=== PATIENT | male | born 1940 | race Caucasian/White ===

== ENCOUNTER 2021-03-26 03:26 | Emergency (ER) | payer OTHER, MEDICARE ==
[~2021-03-26] VITALS: Ht 170.2 cm; Wt 79.5 kg
[~2021-03-26 03:26] MED LIST: AMLO-708 PO; ASPI-611 PO; ATOR20TA PO; BETA1TAB19 PO; CARV-50 PO; CHOL100025 PO; CITA20TA26 PO; CLON-529 PO; FINA5TAB11 PO; FLO0.4C PO; GEMF600T89 PO; LOSA100T57 PO; MELO7.5T12 PO; MULT-66 PO; PANT40TA54 PO; ZOLP5TAB8 PO
[2021-03-26 03:39] VITALS: BP 206/100
[2021-03-26 04:20] LABS: BASOPHILS % (AUTO) 0.7 % (0-1); EOSINOPHILS # (AUTO) 0.4 X10'3 (0-0.9); EOSINOPHILS % (AUTO) 6.6 % (0-6); HEMATOCRIT 37.8 % (42.0-52.0); HEMOGLOBIN 12.9 g/dl (14.0-17.9); LYMPHOCYTES # (AUTO) 1.1 X10'3 (1.1-4.8); LYMPHOCYTES % (AUTO) 18.3 % (21-51); MEAN CORPUSCULAR HEMOGLOBIN 33.1 PG (27.0-31.0); MEAN CORPUSCULAR HGB CONC 34.1 g/dL (33.0-36.5); MEAN CORPUSCULAR VOLUME 97.1 FL (78-98); MEAN PLATELET VOLUME 9.8 FL (7.4-10.4); MONOCYTES # (AUTO) 0.7 X10'3 (0-0.9); MONOCYTES % (AUTO) 12.1 % (2-12); NEUTROPHILS # (AUTO) 3.8 X10'3 (1.8-7.7); NEUTROPHILS % (AUTO) 62.3 % (42-75); PLATELET COUNT 152 X10'3 (140-440); RED CELL DISTRIBUTION WIDTH 13.4 % (11.5-14.5); WHITE BLOOD COUNT 6.2 X10'3 (4.5-11.0)
[2021-03-26 04:37] LABS: ALBUMIN 3.1 G/DL (3.4-5.0); ANION GAP 7 (8-16); BLOOD UREA NITROGEN 16 MG/DL (7-18); BUN/CREATININE RATIO 10.8 (5.4-32.0); CHLORIDE 106 MMOL/L (99-107); CREATININE 1.48 MG/DL (0.60-1.10); GLUCOSE 164 MG/DL (70-104); POTASSIUM 3.5 MMOL/L (3.5-5.1); SODIUM 138 MMOL/L (135-145); TOTAL CARBON DIOXIDE 24.7 MMOL/L (24-32); eGFR 46 ML/MIN
== END 2021-03-26 06:03 | disposition home or self-care (01) ==
LOC: ER 03:27
DX: I10 Essential (primary) hypertension (principal); R51.9 Headache, unspecified; I25.10 Atherosclerotic heart disease of native coronary artery without angina pectoris; G89.29 Other chronic pain; F32.9 Major depressive disorder, single episode, unspecified; F12.90 Cannabis use, unspecified, uncomplicated; Z86.73 Personal history of transient ischemic attack (TIA), and cerebral infarction without residual deficits; Z98.890 Other specified postprocedural states; Z72.89 Other problems related to lifestyle; Z79.82 Long term (current) use of aspirin; Z79.899 Other long term (current) drug therapy
CPT/HCPCS: 36415; 70450; 80048; 84484; 85025; 93005; 99285

== ENCOUNTER 2021-04-09 08:55 | Outpatient (CLI) | payer MEDICARE, OTHER | END 2021-04-09 23:59 | disposition home or self-care (01) | LOC: VAS 08:55 | PROVIDERS: ATTEND Family Medicine | DX: N28.1 Cyst of kidney, acquired (principal); I10 Essential (primary) hypertension | CPT/HCPCS: 93975 ==

== ENCOUNTER 2021-08-05 07:01 | Day surgery (SDC) | payer MEDICARE, OTHER ==
[~2021-08-05] VITALS: Ht 175.3 cm; Wt 84.8 kg
[2021-08-05] VITALS (8 sets, daily range): BP systolic 117–139; BP diastolic 55–66
[2021-08-05] MEDS ORDERED: normal saline 1000ml 1,000 ML IV PRN (07:30)
[2021-08-05] MEDS ORDERED: CHLO25TA10 PO (07:55)
[2021-08-05] MEDS ORDERED: DULO60CA65 PO (07:55)
[2021-08-05] MEDS ORDERED: DICL100G30 TOP (07:59)
[2021-08-05] MEDS ORDERED: OXYB5TAB16 PO (07:59)
[2021-08-05 08:20] LABS: BASOPHILS % (AUTO) 0.6 % (0-1); EOSINOPHILS # (AUTO) 0.4 X10'3 (0-0.9); EOSINOPHILS % (AUTO) 7.2 % (0-6); HEMATOCRIT 36.8 % (42.0-52.0); HEMOGLOBIN 12.5 g/dl (14.0-17.9); LYMPHOCYTES # (AUTO) 0.9 X10'3 (1.1-4.8); LYMPHOCYTES % (AUTO) 15.6 % (21-51); MEAN CORPUSCULAR HEMOGLOBIN 32.7 PG (27.0-31.0); MEAN PLATELET VOLUME 9.4 FL (7.4-10.4); MONOCYTES # (AUTO) 0.7 X10'3 (0-0.9); MONOCYTES % (AUTO) 10.8 % (2-12); NEUTROPHILS % (AUTO) 65.8 % (42-75); PLATELET COUNT 167 X10'3 (140-440); RED BLOOD COUNT 3.84 X10'6 (4.70-6.10); RED CELL DISTRIBUTION WIDTH 13.7 % (11.5-14.5)
[2021-08-05 08:29] LABS: ALBUMIN 3.2 G/DL (3.4-5.0); BLOOD UREA NITROGEN 25 MG/DL (7-18); BUN/CREATININE RATIO 15.6 (5.4-32.0); CALCIUM 8.9 MG/DL (8.5-10.1); CHLORIDE 106 MMOL/L (99-107); GLUCOSE 157 MG/DL (70-104); POTASSIUM 3.1 MMOL/L (3.5-5.1); SODIUM 144 MMOL/L (135-145); eGFR 42 ML/MIN
[2021-08-05 08:37] LABS: ANION GAP 14 (8-16); TOTAL CARBON DIOXIDE 24.2 MMOL/L (24-32)
[2021-08-05] MEDS ORDERED: iohexol 300mg/ml 100ml inj. ONE (08:43)
[2021-08-05] MEDS ORDERED: midazolam 1 mg/ML 2ml injection ONE ×2 (08:43→09:17)
[2021-08-05] MEDS ORDERED: LIDOCAINE 1% w/preservative (10 MG/ML) inj. 10mL VIAL ONE (08:43)
[2021-08-05] MEDS ORDERED: heparin 1,000 UNITS/NS 500ml 500 ML ONE (08:43)
[2021-08-05] MEDS ORDERED: fentaNYL/PF 50MCG/1 ML 2ML syringe ONE ×2 (08:43→09:17)
[2021-08-05] MEDS ORDERED: proCHLORperazine 10 MG/2 ml inj ONE (09:19)
[2021-08-05] MEDS ORDERED: normal saline 1000ml 1,000 ML IV SCH (10:25)
--- NOTE | 2021-08-05 12:10 | NUR ---
Pt laying in bed. Eating breakfast. Denies pain. Denies sob. VS stable as charted. Will continue to monitor.
== END 2021-08-05 13:30 | disposition home or self-care (01) ==
LOC: SSTAY O 07:01
PROVIDERS: ATTEND Radiology Vascular & Interventional Radiology
DX: I70.212 Atherosclerosis of native arteries of extremities with intermittent claudication, left leg (principal); I10 Essential (primary) hypertension; J44.9 Chronic obstructive pulmonary disease, unspecified; Z79.899 Other long term (current) drug therapy; Z86.73 Personal history of transient ischemic attack (TIA), and cerebral infarction without residual deficits
CPT/HCPCS: 36415; 37224; 75625; 75710; 80048; 85025; 85610; 99152; 99153; C1760; C1769; C1894; C2623; J0780; J1644; J2250; J3010; Q9967; A6213

== ENCOUNTER 2022-02-21 12:32 | Inpatient (IN) | payer MEDICARE, OTHER ==
[~2022-02-21] VITALS: Ht 175.3 cm; Wt 84.8 kg
[~2022-02-21 12:32] MED LIST changes: -ASPI-611 PO; -BETA1TAB19 PO; +CHLO25TA10 PO; -CITA20TA26 PO; +DICL100G30 TOP; +DULO60CA65 PO; -MELO7.5T12 PO; +OXYB5TAB16 PO
[2022-02-21 13:09] LABS: BASOPHILS # (AUTO) 0.1 X10'3 (0-0.2); BASOPHILS % (AUTO) 0.6 % (0-1); EOSINOPHILS # (AUTO) 0.4 X10'3 (0-0.9); EOSINOPHILS % (AUTO) 4.9 % (0-6); HEMATOCRIT 42.1 % (42.0-52.0); HEMOGLOBIN 14.3 g/dl (14.0-17.9); LYMPHOCYTES # (AUTO) 1.2 X10'3 (1.1-4.8); LYMPHOCYTES % (AUTO) 13.2 % (21-51); MEAN CORPUSCULAR HEMOGLOBIN 34.2 PG (27.0-31.0); MEAN CORPUSCULAR VOLUME 100.8 FL (78-98); MEAN PLATELET VOLUME 9.6 FL (7.4-10.4); MONOCYTES # (AUTO) 0.6 X10'3 (0-0.9); MONOCYTES % (AUTO) 6.7 % (2-12); NEUTROPHILS # (AUTO) 6.8 X10'3 (1.8-7.7); NEUTROPHILS % (AUTO) 74.6 % (42-75); PLATELET COUNT 180 X10'3 (140-440); RED BLOOD COUNT 4.17 X10'6 (4.70-6.10); RED CELL DISTRIBUTION WIDTH 14.6 % (11.5-14.5); WHITE BLOOD COUNT 9.1 X10'3 (4.5-11.0)
[2022-02-21 13:17] LABS: ALANINE AMINOTRANSFERASE 32 U/L (12-78); ALBUMIN 3.3 G/DL (3.4-5.0); ALBUMIN/GLOBULIN RATIO 0.9 (1.1-1.5); ALKALINE PHOSPHATASE 94 IU/L (46-116); ANION GAP 9 (8-16); ASPARTATE AMINO TRANSFERASE 17 U/L (10-37); BILIRUBIN,TOTAL 0.5 MG/DL (0.1-1.0); BLOOD UREA NITROGEN 27 MG/DL (7-18); BUN/CREATININE RATIO 17.8 (5.4-32.0); CALCIUM 9.4 MG/DL (8.5-10.1); CHLORIDE 104 MMOL/L (99-107); CREATININE 1.52 MG/DL (0.60-1.10); GLUCOSE 197 MG/DL (70-104); POTASSIUM 3.8 MMOL/L (3.5-5.1); SODIUM 140 MMOL/L (135-145); TOTAL CARBON DIOXIDE 27.1 MMOL/L (24-32); TOTAL PROTEIN 6.8 G/DL (6.4-8.2); eGFR 44 ML/MIN
--- NOTE | 2022-02-21 15:08 | NUR ---
Placed pt on Zoll monitor with pacing pads d/t bradycardia
[2022-02-21] MEDS ORDERED: morphine 2 MG/ML inj. syringe IV PRN ×2 (17:15)
[2022-02-21] MEDS ORDERED: mag hydrox/Alum hydrox/simeth 30ml oral suspension PO PRN (17:15)
[2022-02-21] MEDS ORDERED: ondansetron/PF 4mg/2ml inj IV PRN (17:15)
[2022-02-21] MEDS ORDERED: acetaminophen 325mg tablet PO PRN ×2 (17:15)
[2022-02-21] MEDS ORDERED: magnesium hydroxide 30ml (MOM) UD suspension PO PRN (17:15)
[2022-02-21] MEDS: normal saline 1000ml 1,000 ML IV SCH (17:36)
[2022-02-21] MEDS: docusate sod 100mg capsule PO SCH (20:52)
--- NOTE | 2022-02-21 23:43 | NUR ---
PT PLACED ONTO A HOSPITAL BED
[2022-02-22] MEDS: HYDROcodone/acetaminophen 5mg/325mg tablet PO PRN ×4 (00:19→21:53)
[2022-02-22] MEDS: normal saline 1000ml 1,000 ML IV SCH (03:36)
[2022-02-22 04:01] LABS: BASOPHILS % (AUTO) 0.5 % (0-1); EOSINOPHILS # (AUTO) 0.5 X10'3 (0-0.9); EOSINOPHILS % (AUTO) 6.3 % (0-6); HEMOGLOBIN 12.7 g/dl (14.0-17.9); LYMPHOCYTES # (AUTO) 1.3 X10'3 (1.1-4.8); LYMPHOCYTES % (AUTO) 17.5 % (21-51); MEAN CORPUSCULAR HEMOGLOBIN 33.8 PG (27.0-31.0); MEAN CORPUSCULAR HGB CONC 33.4 g/dL (33.0-36.5); MEAN CORPUSCULAR VOLUME 101.2 FL (78-98); MEAN PLATELET VOLUME 9.4 FL (7.4-10.4); MONOCYTES # (AUTO) 0.5 X10'3 (0-0.9); MONOCYTES % (AUTO) 7.3 % (2-12); NEUTROPHILS # (AUTO) 5.1 X10'3 (1.8-7.7); NEUTROPHILS % (AUTO) 68.4 % (42-75); PLATELET COUNT 152 X10'3 (140-440); RED BLOOD COUNT 3.76 X10'6 (4.70-6.10); RED CELL DISTRIBUTION WIDTH 14.4 % (11.5-14.5); WHITE BLOOD COUNT 7.5 X10'3 (4.5-11.0)
[2022-02-22 04:10] LABS: ALBUMIN 2.7 G/DL (3.4-5.0); ANION GAP 8 (8-16); BLOOD UREA NITROGEN 26 MG/DL (7-18); BUN/CREATININE RATIO 18.4 (5.4-32.0); CALCIUM 8.9 MG/DL (8.5-10.1); CHLORIDE 108 MMOL/L (99-107); CREATININE 1.41 MG/DL (0.60-1.10); GLUCOSE 153 MG/DL (70-104); POTASSIUM 3.7 MMOL/L (3.5-5.1); SODIUM 141 MMOL/L (135-145); TOTAL CARBON DIOXIDE 25.1 MMOL/L (24-32); eGFR 48 ML/MIN
[2022-02-22] MEDS ORDERED: CARV6.252 PO (07:21)
[2022-02-22] MEDS ORDERED: DILT-36 PO (07:26)
[2022-02-22] MEDS ORDERED: BETA1TAB19 PO (07:26)
[2022-02-22] MEDS ORDERED: VARE1TAB24 PO (07:29)
[2022-02-22] MEDS ORDERED: VARE0.5T6 PO (07:29)
[2022-02-22] MEDS ORDERED: zolpidem 5mg tablet PO PRN (08:40)
[2022-02-22] MEDS: docusate sod 100mg capsule PO SCH ×2 (09:18→20:23)
[2022-02-22] MEDS ORDERED: chlorthalidone 25mg tablet PO SCH ×2 (09:37→09:51)
[2022-02-22 10:10] VITALS: BP 169/73
[2022-02-22] MEDS: amLODIPine 5mg tablet PO SCH (10:28)
[2022-02-22] MEDS: cholecalciferol (vitamin D3) 1,000 unit (25mcg) tablet PO SCH ×2 (10:28→20:24)
[2022-02-22] MEDS: losartan 50mg tablet PO SCH (10:28)
[2022-02-22] MEDS: pantoprazole 40mg Tablet.DR PO SCH (10:29)
[2022-02-22] MEDS: multivitamins, therapeutics tablet PO SCH (10:29)
[2022-02-22] MEDS: atorvastatin 20mg tablet PO SCH (10:29)
[2022-02-22] MEDS: finasteride 5mg tablet PO SCH (13:59)
[2022-02-22] MEDS ORDERED: ASPI-611 PO (14:00)
[2022-02-22 15:05] VITALS: BP 107/68
[2022-02-22] MEDS ORDERED: DULO30CA52 PO (16:48)
--- NOTE | 2022-02-22 16:52 | NUR ---
PAGER ID: [phone] MESSAGE: [id number]. Bola. Added duloxetine to med rec per pt. Pt needs tonight. Jacqueline Miner [phone]
--- NOTE | 2022-02-22 16:52 | NUR ---
Added to the med rec: duloxetine 30mg cap PO BID per pt
[2022-02-22 18:00] VITALS: BP 129/72
--- NOTE | 2022-02-22 18:10 | NUR ---
Problems reprioritized. Patient report given to Valentin HANEY, questions answered & plan of care reviewed with .
--- NOTE | 2022-02-22 18:30 | NUR ---
Patient in room PCU 3018. I have received report from esther and had the opportunity to ask questions and assume patient care.
--- NOTE | 2022-02-22 18:33 | NUR ---
[place]rientee documentation: I have reviewed and agree with all interventions, assessments performed and documented by PHARMACY SERVICES REPRESENTATIVE, II.
[2022-02-22] MEDS: duloxetine 30mg CAPSULE.DR PO SCH (20:23)
[2022-02-22] MEDS: gemfibrozil 600mg tablet PO SCH (20:24)
[2022-02-22] MEDS ORDERED: tamsulosin 0.4mg capsule PO SCH (21:00)
[2022-02-22] MEDS ORDERED: varenicline tartrate 1mg tablet PO SCH (21:00)
[2022-02-22] MEDS ORDERED: cloNIDine 0.1 mg tablet PO SCH (21:00)
[2022-02-23 02:00] VITALS: BP 99/60
[2022-02-23 06:21] LABS: BASOPHILS # (AUTO) 0.1 X10'3 (0-0.2); BASOPHILS % (AUTO) 0.8 % (0-1); EOSINOPHILS # (AUTO) 0.4 X10'3 (0-0.9); EOSINOPHILS % (AUTO) 6.5 % (0-6); HEMATOCRIT 38.9 % (42.0-52.0); HEMOGLOBIN 13.2 g/dl (14.0-17.9); LYMPHOCYTES # (AUTO) 1.1 X10'3 (1.1-4.8); LYMPHOCYTES % (AUTO) 17.5 % (21-51); MEAN CORPUSCULAR HEMOGLOBIN 34.4 PG (27.0-31.0); MEAN CORPUSCULAR HGB CONC 33.9 g/dL (33.0-36.5); MEAN CORPUSCULAR VOLUME 101.4 FL (78-98); MEAN PLATELET VOLUME 9.3 FL (7.4-10.4); MONOCYTES # (AUTO) 0.6 X10'3 (0-0.9); MONOCYTES % (AUTO) 9.1 % (2-12); NEUTROPHILS # (AUTO) 4.2 X10'3 (1.8-7.7); NEUTROPHILS % (AUTO) 66.1 % (42-75); PLATELET COUNT 148 X10'3 (140-440); RED BLOOD COUNT 3.84 X10'6 (4.70-6.10); RED CELL DISTRIBUTION WIDTH 14.5 % (11.5-14.5); WHITE BLOOD COUNT 6.3 X10'3 (4.5-11.0)
--- NOTE | 2022-02-23 06:22 | NUR ---
Problems reprioritized. Patient report given, questions answered & plan of care reviewed with
[2022-02-23 06:30] VITALS: BP 108/59
[2022-02-23 06:42] LABS: ALBUMIN 2.8 G/DL (3.4-5.0); ANION GAP 6 (8-16); BLOOD UREA NITROGEN 23 MG/DL (7-18); BUN/CREATININE RATIO 14.7 (5.4-32.0); CALCIUM 9.1 MG/DL (8.5-10.1); CHLORIDE 105 MMOL/L (99-107); CREATININE 1.56 MG/DL (0.60-1.10); GLUCOSE 155 MG/DL (70-104); SODIUM 141 MMOL/L (135-145); TOTAL CARBON DIOXIDE 29.6 MMOL/L (24-32); eGFR 43 ML/MIN
[2022-02-23 06:45] LABS: POTASSIUM 3.9 MMOL/L (3.5-5.1)
--- NOTE | 2022-02-23 06:50 | NUR ---
Patient in room PCU 3018. I have received report from Valentin HANEY and had the opportunity to ask questions and assume patient care.
[2022-02-23] MEDS ORDERED: varenicline tartrate 1mg tablet PO SCH ×2 (08:00→11:17)
[2022-02-23] MEDS ORDERED: beta-carotene(A) w/C & E + minerals tab PO SCH (08:00)
[2022-02-23] MEDS ORDERED: carvedilol 6.25mg tablet PO ONE ×2 (08:13→10:00)
[2022-02-23] MEDS: pantoprazole 40mg Tablet.DR PO SCH (08:18)
[2022-02-23] MEDS: multivitamins, therapeutics tablet PO SCH (08:18)
[2022-02-23] MEDS: losartan 50mg tablet PO SCH (08:19)
[2022-02-23] MEDS: cholecalciferol (vitamin D3) 1,000 unit (25mcg) tablet PO SCH (08:19)
[2022-02-23] MEDS: amLODIPine 5mg tablet PO SCH (08:19)
[2022-02-23] MEDS: atorvastatin 20mg tablet PO SCH (08:19)
[2022-02-23] MEDS: docusate sod 100mg capsule PO SCH (08:19)
[2022-02-23] MEDS: duloxetine 30mg CAPSULE.DR PO SCH (08:19)
[2022-02-23] MEDS: finasteride 5mg tablet PO SCH (08:20)
[2022-02-23] MEDS: gemfibrozil 600mg tablet PO SCH (08:29)
[2022-02-23] MEDS: HYDROcodone/acetaminophen 5mg/325mg tablet PO PRN (08:31)
[2022-02-23 10:41] VITALS: BP_SYST 103; BP_SYST 128; BP_SYST 160; BP_DIAS 66; BP_DIAS 83; BP_DIAS 88
[2022-02-23 10:48] VITALS: BP 128/83
--- NOTE | 2022-02-23 12:11 | NUR ---
O2 Sat at rest on room air: 95% If O2 Sat did not drop below 89% on room air,ambulate patient on room air. O2 Sat while ambulating on room air: 88% Recovery O2 Sat while ambulating on 2 LPM: 92% No further documentation is necessary. If patient does not drop below 89% while ambulating, he/she does not qualify for home O2.
--- NOTE | 2022-02-23 14:45 | NUR ---
Patient discharged. Discharge instructions provided. All belongings and instructions sent home with patient. O2 delivered and explained. Patient accompanied to vehicle by nursing staff.
--- NOTE | 2022-02-23 15:43 | NUR ---
Orientee documentation: I have reviewed and agree with all interventions, assessments performed and documented by LYNDON Kumar II.
--- NOTE | 2022-03-02 09:06 | NUR ---
Case Management DC follow up: Spoke with Patient's via telephone. S/P: Patient Reports: Denies: Acute/continuous CP, emergent SOB, resp distress, dyspnea, vomiting, weakness, vertigo .Verbalizes Patient is using his oxygen. Verbalizes he has had moments of nausea, and one incident of feeling faint. Denies: [place], blurry vision, s/s of stroke/BE-FAST, dysuria, hematuria, retention, abdominal pain/distension, hematochezia, melena, unexplained bruising, bleeding, fever, chills. Patient's distraught at the time of this interview.Verbalizes they have been alone since Patient was discharged from hospital.Verbalizes they have not heard from a Physical Therapists, not given event monitor, no one has checked on them.Verbalizes Patient's Blood pressure has been elevated; however, that was prior to taking his morning medications.Verbalized understanding of s/s that warrant a 9-11/ER visit for further evaluation. Verbalizes understanding of new Rx:, why prescribed;continues/resumes current Rx as ordered.Verbalized they can not get follow up appointments with , nor with .Patient's agreed with my offer of assistance with follow up appointments.Apprised 's nurse Annie,of Patient's need for follow up, event monitor, and blood pressure. Follow up appointment with had already been scheduled for 03/10/22. however, if a time became available prior to 03/10/22 they would call Patient.Telephoned Patient and spoke with his .Patient's pleased that they had just received call from 's office and have appointment for the next day.Patient's apprised of appointment with 03/10/22, and assured if office has an opening prior to appointment time they would receive a call .Verbalizes the nursing care and stay at hospital was excellent. Needs met, questions concerns addressed at DC.No further questions/concerns regarding recent hospital stay, and/or DC status at this time.
== END 2022-02-23 14:45 | disposition home or self-care (01) | DRG 310 ==
LOC: ER 12:32 → ED HOLD 17:17 → PCU 3S 02-22 09:59
PROVIDERS: ADMIT Internal Medicine; ATTEND Internal Medicine
DX: I49.5 Sick sinus syndrome (principal); I44.1 Atrioventricular block, second degree; I12.9 Hypertensive chronic kidney disease with stage 1 through stage 4 chronic kidney disease, or unspecified chronic kidney disease; I25.10 Atherosclerotic heart disease of native coronary artery without angina pectoris; E11.22 Type 2 diabetes mellitus with diabetic chronic kidney disease; E11.51 Type 2 diabetes mellitus with diabetic peripheral angiopathy without gangrene; I44.0 Atrioventricular block, first degree; E78.5 Hyperlipidemia, unspecified; F17.210 Nicotine dependence, cigarettes, uncomplicated; G47.33 Obstructive sleep apnea (adult) (pediatric); F32.A Depression, unspecified; R09.02 Hypoxemia; G89.29 Other chronic pain; M54.9 Dorsalgia, unspecified; J44.9 Chronic obstructive pulmonary disease, unspecified; N18.30 Chronic kidney disease, stage 3 unspecified; N40.0 Benign prostatic hyperplasia without lower urinary tract symptoms; Z82.49 Family history of ischemic heart disease and other diseases of the circulatory system; Z82.5 Family history of asthma and other chronic lower respiratory diseases; Z86.73 Personal history of transient ischemic attack (TIA), and cerebral infarction without residual deficits; Z98.1 Arthrodesis status; Z79.899 Other long term (current) drug therapy; Z79.82 Long term (current) use of aspirin
CPT/HCPCS: 36415; 71045; 80048; 80053; 83880; 84484; 85025; 87081; 93005; 97161; 97530; 99285; G0378; J7030

== ENCOUNTER 2022-04-02 12:07 | Day surgery (SDC) | payer MEDICARE, OTHER ==
[~2022-04-02] VITALS: Ht 175.3 cm; Wt 89.3 kg
[2022-04-02] VITALS (8 sets, daily range): BP systolic 115–143; BP diastolic 71–88
[~2022-04-02 12:07] MED LIST changes: +ASPI-611 PO; +BETA1TAB19 PO; -CARV-50 PO; +CARV6.252 PO; -DICL100G30 TOP; +DULO30CA52 PO; -DULO60CA65 PO; -OXYB5TAB16 PO; +VARE0.5T6 PO; +VARE1TAB24 PO
[2022-04-02] MEDS: normal saline 1000ml 1,000 ML IV SCH ×2 (12:30→16:43)
[2022-04-02] MEDS ORDERED: ceFAZolin inj. 2,000 MG in dextrose 5%-water 100 ML IV ONE (12:32)
[2022-04-02] MEDS ORDERED: EZET10TA48 PO (12:41)
[2022-04-02 13:00] LABS: BASOPHILS % (AUTO) 0.7 % (0-1); EOSINOPHILS # (AUTO) 0.4 X10'3 (0-0.9); EOSINOPHILS % (AUTO) 6.1 % (0-6); HEMATOCRIT 39.9 % (42.0-52.0); HEMOGLOBIN 13.4 g/dl (14.0-17.9); LYMPHOCYTES # (AUTO) 1.2 X10'3 (1.1-4.8); LYMPHOCYTES % (AUTO) 18.3 % (21-51); MEAN CORPUSCULAR HEMOGLOBIN 32.8 PG (27.0-31.0); MEAN CORPUSCULAR HGB CONC 33.5 g/dL (33.0-36.5); MEAN PLATELET VOLUME 9.2 FL (7.4-10.4); MONOCYTES # (AUTO) 0.5 X10'3 (0-0.9); NEUTROPHILS # (AUTO) 4.3 X10'3 (1.8-7.7); NEUTROPHILS % (AUTO) 66.9 % (42-75); PLATELET COUNT 157 X10'3 (140-440); RED BLOOD COUNT 4.07 X10'6 (4.70-6.10); RED CELL DISTRIBUTION WIDTH 13.4 % (11.5-14.5); WHITE BLOOD COUNT 6.4 X10'3 (4.5-11.0)
[2022-04-02 13:09] LABS: ALBUMIN 3.4 G/DL (3.4-5.0); ANION GAP 8 (8-16); BLOOD UREA NITROGEN 26 MG/DL (7-18); BUN/CREATININE RATIO 15.2 (5.4-32.0); CALCIUM 9.1 MG/DL (8.5-10.1); CHLORIDE 98 MMOL/L (99-107); CREATININE 1.71 MG/DL (0.60-1.10); GLUCOSE 369 MG/DL (70-104); POTASSIUM 3.5 MMOL/L (3.5-5.1); SODIUM 137 MMOL/L (135-145); TOTAL CARBON DIOXIDE 31.2 MMOL/L (24-32); eGFR 39 ML/MIN
[2022-04-02] MEDS ORDERED: ceFAZolin 1000mg inj ONE (13:34)
[2022-04-02] MEDS ORDERED: FENTANYL CITRATE/PF 50 MCG/1 ML VIAL ONE (13:34)
[2022-04-02] MEDS ORDERED: midazolam 1 mg/ML 2ml injection ONE ×3 (13:34→15:21)
[2022-04-02] MEDS ORDERED: LIDOCAINE 1%/EPI 1:100,000 inj. 10 ML multi-dose vial ONE (13:34)
[2022-04-02] MEDS ORDERED: HYDROcodone/acetaminophen 5mg/325mg tablet PO PRN (16:10)
[2022-04-02] MEDS ORDERED: HYDROcodone/acetaminophen 10/325mg tab PO PRN (16:10)
[2022-04-02] MEDS ORDERED: normal saline 1,000 ML IV SCH (16:15)
[2022-04-02] MEDS ORDERED: normal saline 1000ml 400 ML IV SCH (16:15)
[2022-04-02] MEDS ORDERED: vancomycin 1000 MG in NS 250ml X 1 ER IV ONE (17:30)
== END 2022-04-02 20:05 | disposition home or self-care (01) ==
LOC: SSTAY O 12:07
PROVIDERS: ATTEND Internal Medicine Cardiovascular Disease
DX: I49.5 Sick sinus syndrome (principal); I44.30 Unspecified atrioventricular block; I25.10 Atherosclerotic heart disease of native coronary artery without angina pectoris; J44.9 Chronic obstructive pulmonary disease, unspecified; I10 Essential (primary) hypertension; I71.40 Abdominal aortic aneurysm, without rupture, unspecified; I65.23 Occlusion and stenosis of bilateral carotid arteries; E11.51 Type 2 diabetes mellitus with diabetic peripheral angiopathy without gangrene; E78.5 Hyperlipidemia, unspecified; G47.33 Obstructive sleep apnea (adult) (pediatric); K21.9 Gastro-esophageal reflux disease without esophagitis; F32.A Depression, unspecified; N40.0 Benign prostatic hyperplasia without lower urinary tract symptoms; G89.29 Other chronic pain; M54.9 Dorsalgia, unspecified; M54.2 Cervicalgia; F10.10 Alcohol abuse, uncomplicated; Z87.891 Personal history of nicotine dependence; Z82.49 Family history of ischemic heart disease and other diseases of the circulatory system; Z83.6 Family history of other diseases of the respiratory system; Z98.1 Arthrodesis status; Z98.890 Other specified postprocedural states; Z79.82 Long term (current) use of aspirin; Z79.899 Other long term (current) drug therapy
CPT/HCPCS: 33208; 36415; 71046; 80048; 85025; 85610; 93005; 99152; 99153; C1785; C1894; C1898; J0690; J2250; J3010; J3370; J3490; J7030; J7050; A6258

== ENCOUNTER 2022-07-06 14:10 | Outpatient (CLI) | payer MEDICARE, OTHER ==
[~2022-07-06 14:10] MED LIST changes: +EZET10TA48 PO; -VARE0.5T6 PO; -VARE1TAB24 PO
== END 2022-07-06 23:59 | disposition home or self-care (01) ==
LOC: CARD DIAG 14:10
PROVIDERS: ATTEND Internal Medicine Cardiovascular Disease
DX: I08.8 Other rheumatic multiple valve diseases (principal); R55 Syncope and collapse
CPT/HCPCS: 93306

== ENCOUNTER 2022-09-07 14:36 | Emergency (ER) | payer OTHER, MEDICARE ==
[~2022-09-07] VITALS: Ht 175.3 cm; Wt 79.1 kg
[~2022-09-07 14:36] MED LIST changes: -AMLO-708 PO; -ATOR20TA PO; +BUDE9TAB PO; -CHLO25TA10 PO; -CLON-529 PO; +DEXL60CA3 PO; -DULO30CA52 PO; +EMPA25TA PO; -FLO0.4C PO; +GABA-534 PO; -GEMF600T89 PO; +HYDR-3972 PO; +LEVO750T68 PO; -LOSA100T57 PO; +LOSA100T58 PO; -PANT40TA54 PO; -ZOLP5TAB8 PO; +tamsulosin capsule PO
[2022-09-07 14:49] VITALS: BP 113/80
[2022-09-07 15:25] LABS: BASOPHILS # (AUTO) 0.1 X10'3 (0-0.2); BASOPHILS % (AUTO) 0.6 % (0-1); EOSINOPHILS # (AUTO) 0.2 X10'3 (0-0.9); EOSINOPHILS % (AUTO) 1.9 % (0-6); HEMATOCRIT 40.6 % (42.0-52.0); HEMOGLOBIN 13.2 g/dl (14.0-17.9); LYMPHOCYTES # (AUTO) 0.9 X10'3 (1.1-4.8); LYMPHOCYTES % (AUTO) 10.1 % (21-51); MEAN CORPUSCULAR HEMOGLOBIN 32.9 PG (27.0-31.0); MEAN CORPUSCULAR HGB CONC 32.6 g/dL (33.0-36.5); MEAN CORPUSCULAR VOLUME 100.9 FL (78-98); MEAN PLATELET VOLUME 9.4 FL (7.4-10.4); MONOCYTES # (AUTO) 0.5 X10'3 (0-0.9); MONOCYTES % (AUTO) 5.8 % (2-12); NEUTROPHILS # (AUTO) 7.2 X10'3 (1.8-7.7); NEUTROPHILS % (AUTO) 81.6 % (42-75); PLATELET COUNT 156 X10'3 (140-440); RED BLOOD COUNT 4.02 X10'6 (4.70-6.10); RED CELL DISTRIBUTION WIDTH 16.6 % (11.5-14.5); WHITE BLOOD COUNT 8.8 X10'3 (4.5-11.0)
[2022-09-07 15:34] LABS: CLARITY,URINE CLEAR (Clear); COLOR,URINE YELLOW (Yellow); GLUCOSE, URINE NEGATIVE (Neg); KETONES,URINE TRACE mg/dl (Neg); LEUKOCYTE ESTERASE ,URINE NEGATIVE (Neg); NITRITES, URINE NEGATIVE (Neg); OCCULT BLOOD,URINE NEGATIVE (Neg); PROTEIN,URINE >=300 mg/dl (Neg); UROBILINOGEN,URINE 0.2 E.U/dL (0.2-1.0)
[2022-09-07 15:37] LABS: UA COLLECTION TYPE CLN CATCH MIDSTREAM
[2022-09-07 15:48] LABS: MUCUS STRANDS FEW /LPF (Neg); SQUAMOUS EPITHELIAL CELL,UR FEW /LPF (FEW)
[2022-09-07 15:48] LABS: ALANINE AMINOTRANSFERASE 70 U/L (12-78); ALBUMIN 3.4 G/DL (3.4-5.0); ANION GAP 9 (8-16); ASPARTATE AMINO TRANSFERASE 26 U/L (10-37); BILIRUBIN,TOTAL 0.3 MG/DL (0.1-1.0); BLOOD UREA NITROGEN 28 MG/DL (7-18); BUN/CREATININE RATIO 18.1 (10.0-20.0); CALCIUM 9.2 MG/DL (8.5-10.1); CHLORIDE 106 MMOL/L (99-107); CREATININE 1.55 MG/DL (0.60-1.10); GLUCOSE 160 MG/DL (70-104); SODIUM 140 MMOL/L (135-145); TOTAL CARBON DIOXIDE 24.8 MMOL/L (24-32); TOTAL PROTEIN 6.9 G/DL (6.4-8.2); eGFR 43 ML/MIN
[2022-09-07 15:49] LABS: FINE GRANULAR CAST 0-3 /LPF (NEGATIVE)
[2022-09-07 15:50] LABS: BACTERIA,URINE FEW /HPF (Neg); RBC,URINE 0-2 /HPF (0-2); WBC,URINE 0-4 /HPF (0-4)
[2022-09-07 16:29] LABS: ALKALINE PHOSPHATASE 93 IU/L (46-116)
== END 2022-09-07 17:18 | disposition home or self-care (01) ==
LOC: ER 14:36
DX: N39.498 Other specified urinary incontinence (principal); I51.9 Heart disease, unspecified; I10 Essential (primary) hypertension; E11.9 Type 2 diabetes mellitus without complications; G89.29 Other chronic pain; M54.9 Dorsalgia, unspecified; F32.A Depression, unspecified; F12.10 Cannabis abuse, uncomplicated; Z79.899 Other long term (current) drug therapy; Z79.1 Long term (current) use of non-steroidal anti-inflammatories (NSAID); Z79.2 Long term (current) use of antibiotics
CPT/HCPCS: 36415; 71045; 80053; 81001; 83605; 83735; 84145; 84484; 85025; 87040; 99284

== ENCOUNTER 2022-10-14 13:27 | Emergency (ER) | payer OTHER, MEDICARE ==
[~2022-10-14] VITALS: Ht 175.3 cm; Wt 77.3 kg
[~2022-10-14 13:27] MED LIST changes: -HYDR-3972 PO
[2022-10-14 14:18] LABS: BASOPHILS % (AUTO) 0.5 % (0-1); EOSINOPHILS # (AUTO) 0.2 X10'3 (0-0.9); EOSINOPHILS % (AUTO) 2.2 % (0-6); HEMATOCRIT 41.1 % (42.0-52.0); HEMOGLOBIN 13.8 g/dl (14.0-17.9); LYMPHOCYTES # (AUTO) 0.9 X10'3 (1.1-4.8); LYMPHOCYTES % (AUTO) 12.5 % (21-51); MEAN CORPUSCULAR HGB CONC 33.6 g/dL (33.0-36.5); MEAN CORPUSCULAR VOLUME 98.4 FL (78-98); MEAN PLATELET VOLUME 8.9 FL (7.4-10.4); MONOCYTES # (AUTO) 0.6 X10'3 (0-0.9); NEUTROPHILS # (AUTO) 5.2 X10'3 (1.8-7.7); NEUTROPHILS % (AUTO) 75.8 % (42-75); PLATELET COUNT 167 X10'3 (140-440); RED BLOOD COUNT 4.18 X10'6 (4.70-6.10); RED CELL DISTRIBUTION WIDTH 14.6 % (11.5-14.5); WHITE BLOOD COUNT 6.8 X10'3 (4.5-11.0)
[2022-10-14 14:30] LABS: ALANINE AMINOTRANSFERASE 128 U/L (12-78); ALBUMIN 3.4 G/DL (3.4-5.0); ALKALINE PHOSPHATASE 86 IU/L (46-116); ANION GAP 9 (8-16); ASPARTATE AMINO TRANSFERASE 46 U/L (10-37); BILIRUBIN,TOTAL 0.5 MG/DL (0.1-1.0); BLOOD UREA NITROGEN 19 MG/DL (7-18); BUN/CREATININE RATIO 12.3 (10.0-20.0); CALCIUM 9.3 MG/DL (8.5-10.1); CHLORIDE 103 MMOL/L (99-107); CREATININE 1.54 MG/DL (0.60-1.10); GLUCOSE 149 MG/DL (70-104); POTASSIUM 3.5 MMOL/L (3.5-5.1); SODIUM 140 MMOL/L (135-145); TOTAL CARBON DIOXIDE 28.2 MMOL/L (24-32); TOTAL PROTEIN 6.7 G/DL (6.4-8.2); eGFR 44 ML/MIN
[2022-10-14] MEDS ORDERED: carvedilol 6.25mg tablet PO ONE (15:20)
[2022-10-14] MEDS ORDERED: ondansetron/PF 4mg/2ml inj IV ONE (15:20)
[2022-10-14] MEDS ORDERED: tamsulosin 0.4mg capsule PO ONE (15:20)
[2022-10-14] MEDS ORDERED: enalaprilat dihydrate 2.5mg/2ml vial IV ONE (15:20)
[2022-10-14] MEDS ORDERED: tamsulosin 0.4mg capsule PO SCH (15:20)
[2022-10-14] MEDS ORDERED: normal saline 1000ml 1,000 ML IV ONE (15:20)
[2022-10-14] MEDS ORDERED: carvedilol 6.25mg tablet PO SCH (15:20)
--- NOTE | 2022-10-14 16:16 | NUR ---
Amy doty in [facility] - 10/14/22 at 1617 by JENNIFER ARIAN PERSAUD FROM PHARM. PHARM WILL DEL
--- NOTE | 2022-10-14 16:17 | NUR ---
ERROR LAST NOTE MADE ON INCORRECT PT. NOTE UNDONE.
--- NOTE | 2022-10-14 16:49 | NUR ---
PT EMPTIED URINE. RN EDUCATED TO PROVIDE URINE SAMPLE NEXT TIME.
[2022-10-14] MEDS ORDERED: normal saline 1000ML IV soln IVB ONE (17:00)
[2022-10-14 18:54] LABS: CLARITY,URINE CLEAR (Clear); COLOR,URINE YELLOW (Yellow); GLUCOSE, URINE NEGATIVE (Neg); KETONES,URINE 15 mg/dl (Neg); LEUKOCYTE ESTERASE ,URINE NEGATIVE (Neg); NITRITES, URINE NEGATIVE (Neg); OCCULT BLOOD,URINE TRACE-INTACT (Neg); PROTEIN,URINE >=300 mg/dl (Neg); UROBILINOGEN,URINE 0.2 E.U/dL (0.2-1.0)
[2022-10-14 18:55] LABS: UA COLLECTION TYPE CLN CATCH MIDSTREAM
[2022-10-14 18:59] LABS: MUCUS STRANDS FEW /LPF (Neg); SQUAMOUS EPITHELIAL CELL,UR FEW /LPF (FEW)
[2022-10-14 19:00] LABS: BACTERIA,URINE FEW /HPF (Neg); HYALINE CASTS 0-3 /LPF (NEGATIVE)
[2022-10-14 19:01] LABS: RBC,URINE 0-2 /HPF (0-2); WBC,URINE 0-4 /HPF (0-4)
[2022-10-14 19:30] VITALS: BP_DIAS 98
[2022-10-14] MEDS ORDERED: metoprolol tartrate 50mg tablet PO ONE (19:45)
[2022-10-14 19:48] VITALS: BP_SYST 203
== END 2022-10-14 20:03 | disposition home or self-care (01) ==
LOC: ER 13:28
DX: R11.2 Nausea with vomiting, unspecified (principal)
CPT/HCPCS: 36415; 71045; 80053; 81001; 83880; 84145; 84484; 85025; 93005; 96361; 96374; 96375; 99285; J2405; J3490; J7030; J7040

== ENCOUNTER 2022-12-06 22:44 | Emergency (ER) | payer OTHER, MEDICARE ==
[~2022-12-06] VITALS: Ht 175.3 cm; Wt 75.5 kg
[~2022-12-06 22:44] MED LIST changes: -GABA-534 PO; +GABA-535 PO
[2022-12-06 23:49] VITALS: RESP 20; TEMP 98.6; O2SAT 96
[2022-12-07 00:28] VITALS: BP 99/63; PULSE 71
--- NOTE | 2022-12-07 00:58 | NUR ---
iv dc'd pt being discharged dressing applied
== END 2022-12-07 00:59 | disposition home or self-care (01) ==
LOC: ER 22:45
DX: I95.9 Hypotension, unspecified (principal); F03.90 Unspecified dementia, unspecified severity, without behavioral disturbance, psychotic disturbance, mood disturbance, and anxiety; I11.0 Hypertensive heart disease with heart failure; J44.9 Chronic obstructive pulmonary disease, unspecified; E11.9 Type 2 diabetes mellitus without complications; F32.A Depression, unspecified; F12.10 Cannabis abuse, uncomplicated; Z88.5 Allergy status to narcotic agent; Z79.899 Other long term (current) drug therapy
CPT/HCPCS: 93005; 99283

== ENCOUNTER 2023-01-08 14:56 | Inpatient (IN) | payer OTHER, MEDICARE ==
[~2023-01-08] VITALS: Ht 175.3 cm; Wt 73.4 kg
[2023-01-08 16:23] LABS: BASOPHILS # (AUTO) 0.1 X10'3 (0-0.2); BASOPHILS % (AUTO) 0.7 % (0-1); EOSINOPHILS # (AUTO) 0.3 X10'3 (0-0.9); EOSINOPHILS % (AUTO) 4.7 % (0-6); HEMATOCRIT 37.5 % (42.0-52.0); HEMOGLOBIN 12.6 g/dl (14.0-17.9); LYMPHOCYTES # (AUTO) 0.9 X10'3 (1.1-4.8); LYMPHOCYTES % (AUTO) 13.6 % (21-51); MEAN CORPUSCULAR HEMOGLOBIN 33.5 PG (27.0-31.0); MEAN CORPUSCULAR HGB CONC 33.7 g/dL (33.0-36.5); MEAN CORPUSCULAR VOLUME 99.4 FL (78-98); MEAN PLATELET VOLUME 9.4 FL (7.4-10.4); MONOCYTES # (AUTO) 0.7 X10'3 (0-0.9); MONOCYTES % (AUTO) 10.6 % (2-12); NEUTROPHILS # (AUTO) 4.9 X10'3 (1.8-7.7); NEUTROPHILS % (AUTO) 70.4 % (42-75); PLATELET COUNT 167 X10'3 (140-440); RED BLOOD COUNT 3.77 X10'6 (4.70-6.10); RED CELL DISTRIBUTION WIDTH 14.4 % (11.5-14.5)
[2023-01-08 16:39] LABS: ALANINE AMINOTRANSFERASE 23 U/L (12-78); ALBUMIN/GLOBULIN RATIO 0.9 (1.1-1.5); ALKALINE PHOSPHATASE 79 IU/L (46-116); ANION GAP 8 (8-16); ASPARTATE AMINO TRANSFERASE 22 U/L (10-37); BILIRUBIN,TOTAL 0.4 MG/DL (0.1-1.0); BLOOD UREA NITROGEN 17 MG/DL (7-18); BUN/CREATININE RATIO 11.8 (10.0-20.0); CALCIUM 9.1 MG/DL (8.5-10.1); CHLORIDE 105 MMOL/L (99-107); CREATININE 1.44 MG/DL (0.60-1.10); GLUCOSE 132 MG/DL (70-104); SODIUM 141 MMOL/L (135-145); TOTAL CARBON DIOXIDE 28.4 MMOL/L (24-32); TOTAL PROTEIN 6.4 G/DL (6.4-8.2); eCRCL 40 ML/MIN; eGFR 47 ML/MIN
[2023-01-08 16:43] LABS: POTASSIUM 2.8 MMOL/L (3.5-5.1)
[2023-01-08] MEDS ORDERED: potassium Cl 20 mEq SR tablet PO STA (18:09)
[2023-01-08] MEDS ORDERED: magnesium 2GM in 50ml NS 50 ML IV ONE (18:10)
[2023-01-08 18:33] LABS: PRO BRAIN NATRIURETIC PEPTIDE 4356 PG/ML (0-450)
[2023-01-08] MEDS: potassium CL 10mEq/100ml bag 100 ML IV SCH ×3 (18:34→21:37)
--- NOTE | 2023-01-08 22:56 | NUR ---
PATIENT RESTING IN BED WITH EYES CLOSED, RESPIRATIONS EVEN AND UNLABORED, NO ACUTE DISTRESS NOTED AT THIS TIME. FAMILY AT BEDSIDE. CALL LIGHT WITHIN REACH.
--- NOTE | 2023-01-08 23:29 | NUR ---
PATIENT AMBULATORY TO RESTROOM WITH STEADY GAIT, AT BEDSIDE. PATIENT TOLERATED WELL. DENIES NEEDS, CALL LIGHT WITHIN REACH.
--- NOTE | 2023-01-08 23:54 | NUR ---
LAB CALLED POTASSIUM 2.8. INFORMED ARIAN BRONSON AND DR. GONZALEZ
[2023-01-09] MEDS ORDERED: HYDR-3973 PO (00:11)
--- NOTE | 2023-01-09 00:29 | NUR ---
PATIENT PLACED IN HOSPITAL BED FOR COMFORT.
[2023-01-09] MEDS ORDERED: dextrose 50%-water 50ml dispensing syringe IV PRN ×2 (00:30)
[2023-01-09] MEDS ORDERED: ondansetron/PF 4mg/2ml inj IV PRN (00:30)
[2023-01-09] MEDS ORDERED: acetaminophen 325mg tablet PO PRN (00:30)
[2023-01-09] MEDS ORDERED: diphenoxylate/atropine tablet (Lomotil) PO PRN (00:30)
[2023-01-09] MEDS ORDERED: magnesium hydroxide 30ml (MOM) UD suspension PO PRN (00:30)
[2023-01-09] MEDS ORDERED: magnesium 2GM in 50ml NS 50 ML IV PRN (00:30)
[2023-01-09] MEDS ORDERED: magnesium Cl slow-release 64mg tablet PO PRN (00:30)
[2023-01-09] MEDS ORDERED: mag hydrox/Alum hydrox/simeth 30ml oral suspension PO PRN (00:30)
[2023-01-09] MEDS ORDERED: glucagon, human recombinant 1mg kit SUBCUT PRN (00:30)
[2023-01-09] MEDS ORDERED: nicotine 14mg patch - 24hr TD ONE (00:30)
[2023-01-09] MEDS ORDERED: DEXTROSE 15 GM of carb/4 tabs (each vial/BOTTLE has 4 tablets) PO PRN ×2 (00:30)
[2023-01-09] MEDS ORDERED: MESSAGE TO PHARMACY PO ONE (00:30)
[2023-01-09] MEDS ORDERED: potassium Cl 20 mEq SR tablet PO PRN (00:30)
[2023-01-09] MEDS ORDERED: magnesium 4gm in 100ml NS 100 ML IV PRN (00:30)
[2023-01-09] MEDS ORDERED: ipratropium/albuterol 3ml nebule NEB PRN (00:40)
--- NOTE | 2023-01-09 01:03 | NUR ---
CALLED PHARMACY TO GET POTASSIUM PER ORDER, PHARMACY TO PREPARE MED
[2023-01-09 01:15] VITALS: PULSE 64; RESP 16; O2SAT 97
[2023-01-09 01:19] LABS: HEMOGLOBIN A1C 5.8 % (4.5-6.2)
[2023-01-09] MEDS: potassium Cl 40MEQ/1/2NS 520ml 520 ML IV PRN ×2 (02:01→19:11)
[2023-01-09] MEDS: temazepam 15mg capsule PO PRN ×2 (03:59→23:35)
--- NOTE | 2023-01-09 04:07 | NUR ---
IV POTASSIUM DECREASED RATE PER PATIENT REQUEST FOR COMFORT.
--- NOTE | 2023-01-09 04:48 | NUR ---
PATIENT RESTING IN BED WITH EYES CLOSED, RESPIRATIONS EVEN AND UNLABORED, NO ACUTE DISTRESS NOTED AT THIS TIME. PATIENT CLOSE TO NURSES STATION, CALL LIGHT WITHIN REACH.
--- NOTE | 2023-01-09 07:06 | NUR ---
PT AWAKE AND SITTING ON SIDE OF BED. VS WNL, NSR WITH NO ECTOPY
[2023-01-09] MEDS ORDERED: pantoprazole 40mg Tablet.DR PO SCH (07:30)
[2023-01-09] MEDS: losartan 50mg tablet PO SCH (08:00)
[2023-01-09] MEDS: furosemide 10 MG/1 ML 10ml inj IV SCH (08:00)
[2023-01-09] MEDS: K and/or MAG REPLACEMENT MC SCH ×2 (08:41→19:12)
[2023-01-09] MEDS: multivitamins, therapeutics tablet PO SCH (09:00)
[2023-01-09] MEDS: docusate sod 100mg capsule PO SCH ×2 (09:01→19:13)
[2023-01-09] MEDS: gabapentin 400mg capsule PO SCH ×2 (09:02→20:00)
[2023-01-09] MEDS: cholecalciferol (vitamin D3) 1,000 unit (25mcg) tablet PO SCH (09:03)
[2023-01-09] MEDS: carvedilol 6.25mg tablet PO SCH ×2 (09:03→20:00)
[2023-01-09] MEDS: finasteride 5mg tablet PO SCH (09:04)
[2023-01-09] MEDS: heparin, porcine 5000 units/ml vial SQ SCH ×2 (09:05→21:13)
[2023-01-09] MEDS: beta-carotene(A) w/C & E + minerals tab PO SCH (09:05)
[2023-01-09] MEDS: LIDOcaine 5% patch TP SCH (09:06)
[2023-01-09] MEDS: ezetimibe 10mg tablet PO SCH (09:07)
--- NOTE | 2023-01-09 09:20 | NUR ---
Amy doty in [place] - 01/09/23 at 1113 by [email or web address] per telephone order from resident sinha, place miguel to gravity drain and remove the leg bag
--- NOTE | 2023-01-09 09:35 | NUR ---
paged dr nixon in regards to er pt in bed 7, robin peterson. has an order for protonix 1mg PO. in PO it only comes in 40mg. pharmacy advises there is no smaller dosage in PO. please correct the order for the pt
--- NOTE | 2023-01-09 09:45 | NUR ---
STOOL SAMPLE SENT TO LAB
[2023-01-09] MEDS: methylPREDNISolone sod succ 125mg/2ml vial IV SCH ×3 (09:57→23:35)
--- NOTE | 2023-01-09 10:16 | NUR ---
PT WAS AWAKE A/O X4 EATING BREAKFAST MEAL, 90%. PT CURRENTLY SLEEPING, EVEN RESPS, WILL CONTINUE TO MONITOR.
[2023-01-09 10:55] LABS: C DIFF ANTIGEN NEGATIVE (NEGATIVE); C DIFF SPECIMEN=DIARRHEA? ACCEPTABLE; C DIFFICILE TOXINS A&B NEGATIVE (Neg)
[2023-01-09 10:56] LABS: OCCULT BLOOD STOOL NEGATIVE (Neg)
[2023-01-09] MEDS ORDERED: PERFLUTREN PROTEIN-A MICROSPHR (Optison) 0.22 MG/ML 3ML VIAL IV ONE (11:05)
--- NOTE | 2023-01-09 11:16 | NUR ---
NPO PT TO BE NPO AFTER MIDNIGHT FOR A, AAA ULTRASOUND STUDY FOR TOMORROW (WEDNESDAY 01/10)
[2023-01-09 12:10] LABS: ALBUMIN 3.5 G/DL (3.4-5.0); ANION GAP 4 (8-16); BLOOD UREA NITROGEN 13 MG/DL (7-18); BUN/CREATININE RATIO 8.8 (10.0-20.0); CALCIUM 9.9 MG/DL (8.5-10.1); CHLORIDE 104 MMOL/L (99-107); CREATININE 1.48 MG/DL (0.60-1.10); GLUCOSE 162 MG/DL (70-104); POTASSIUM 3.4 MMOL/L (3.5-5.1); SODIUM 139 MMOL/L (135-145); TOTAL CARBON DIOXIDE 30.6 MMOL/L (24-32); eCRCL 39 ML/MIN; eGFR 46 ML/MIN
[2023-01-09 13:07] VITALS: PULSE 70; RESP 16; O2SAT 96
--- NOTE | 2023-01-09 13:52 | NUR ---
PT AWAKE, A/O X4, SITTING ON SIDE OF BED READING THE PAPER. AT BS.
--- NOTE | 2023-01-09 16:31 | NUR ---
pt sitting on the side of the bed watching football on his phone, no distress noted
[2023-01-09] MEDS: insulin Lispro (HumaLOG) vial - multi-dose SQ SCH (17:58)
[2023-01-09] MEDS: aspirin 81mg, enteric-coated 1 TAB TABLET.DR PO SCH (19:02)
[2023-01-09] MEDS: tamsulosin 0.4mg capsule PO SCH (21:16)
[2023-01-09] MEDS: insulin glargine (Lantus) pen - multi-dose SQ SCH (21:39)
[2023-01-09 22:00] VITALS: BP 167/103; PULSE 81; TEMP 98.8; O2SAT 95
[2023-01-09] MEDS: acetaminophen 325mg tablet PO PRN (23:36)
[2023-01-09 23:43] VITALS: PULSE 86; RESP 18; O2SAT 96
[2023-01-10] VITALS (8 sets, daily range): BP systolic 104–163; BP diastolic 61–96; PULSE 75–89; RESP 13–20; TEMP 97.9–98.7; O2SAT 92–97
--- NOTE | 2023-01-10 06:05 | NUR ---
RECEIVED REPORT FROM ARIAN ZAMBRANO
--- NOTE | 2023-01-10 06:16 | NUR ---
Problems reprioritized. Patient report given, questions answered & plan of care reviewed with MARYLOU DON.
[2023-01-10 06:50] LABS: % IRON SATURATION 34 % (11-46); IRON 83 UG/DL (53-167); TOTAL IRON BINDING CAPACITY 246 UG/DL (259-388)
[2023-01-10 07:06] LABS: ALANINE AMINOTRANSFERASE 21 U/L (12-78); ALBUMIN 3.1 G/DL (3.4-5.0); ALBUMIN/GLOBULIN RATIO 0.9 (1.1-1.5); ALKALINE PHOSPHATASE 75 IU/L (46-116); ANION GAP 10 (8-16); ASPARTATE AMINO TRANSFERASE 17 U/L (10-37); BILIRUBIN,TOTAL 0.2 MG/DL (0.1-1.0); BLOOD UREA NITROGEN 23 MG/DL (7-18); BUN/CREATININE RATIO 12.7 (10.0-20.0); CALCIUM 9.6 MG/DL (8.5-10.1); CHLORIDE 105 MMOL/L (99-107); CREATININE 1.81 MG/DL (0.60-1.10); FERRITIN 120 NG/ML (26-388); GLUCOSE 245 MG/DL (70-104); MAGNESIUM 2.3 MG/DL (1.5-2.4); PHOSPHORUS 2.4 MG/DL (2.3-4.5); POTASSIUM 3.2 MMOL/L (3.5-5.1); PRO BRAIN NATRIURETIC PEPTIDE 14251 PG/ML (0-450); SODIUM 140 MMOL/L (135-145); TOTAL CARBON DIOXIDE 24.8 MMOL/L (24-32); TOTAL PROTEIN 6.7 G/DL (6.4-8.2); eCRCL 32 ML/MIN; eGFR 36 ML/MIN
[2023-01-10] MEDS: K and/or MAG REPLACEMENT MC SCH ×2 (07:51→20:00)
[2023-01-10] MEDS: LIDOcaine 5% patch TP SCH (08:00)
[2023-01-10] MEDS: docusate sod 100mg capsule PO SCH ×2 (08:00→20:00)
[2023-01-10] MEDS: multivitamins, therapeutics tablet PO SCH (08:22)
[2023-01-10] MEDS: beta-carotene(A) w/C & E + minerals tab PO SCH (08:22)
[2023-01-10] MEDS: pantoprazole 40mg Tablet.DR PO SCH (08:23)
[2023-01-10] MEDS: carvedilol 6.25mg tablet PO SCH ×2 (08:23→20:32)
[2023-01-10] MEDS: ezetimibe 10mg tablet PO SCH (08:23)
[2023-01-10] MEDS: gabapentin 400mg capsule PO SCH ×2 (08:24→20:32)
[2023-01-10] MEDS: losartan 50mg tablet PO SCH (08:24)
[2023-01-10] MEDS: finasteride 5mg tablet PO SCH (08:24)
[2023-01-10] MEDS: potassium Cl 20 mEq SR tablet PO PRN ×3 (08:25→20:32)
[2023-01-10] MEDS: cholecalciferol (vitamin D3) 1,000 unit (25mcg) tablet PO SCH (08:25)
[2023-01-10] MEDS: heparin, porcine 5000 units/ml vial SQ SCH ×2 (08:27→20:37)
[2023-01-10 08:29] LABS: BASOPHILS % (AUTO) 0.3 % (0-1); EOSINOPHILS % (AUTO) 0 % (0-6); HEMATOCRIT 39.4 % (42.0-52.0); HEMOGLOBIN 13.3 g/dl (14.0-17.9); LYMPHOCYTES # (AUTO) 0.6 X10'3 (1.1-4.8); MEAN CORPUSCULAR HEMOGLOBIN 33.1 PG (27.0-31.0); MEAN CORPUSCULAR HGB CONC 33.6 g/dL (33.0-36.5); MEAN CORPUSCULAR VOLUME 98.4 FL (78-98); MONOCYTES # (AUTO) 0.3 X10'3 (0-0.9); MONOCYTES % (AUTO) 2.6 % (2-12); NEUTROPHILS # (AUTO) 9.2 X10'3 (1.8-7.7); NEUTROPHILS % (AUTO) 91.1 % (42-75); PLATELET COUNT 171 X10'3 (140-440); RED BLOOD COUNT 4.01 X10'6 (4.70-6.10); RED CELL DISTRIBUTION WIDTH 14.7 % (11.5-14.5); WHITE BLOOD COUNT 10.1 X10'3 (4.5-11.0)
[2023-01-10] MEDS: methylPREDNISolone sod succ 125mg/2ml vial IV SCH ×3 (08:29→23:36)
[2023-01-10] MEDS: furosemide 10 MG/1 ML 10ml inj IV SCH (08:31)
[2023-01-10] MEDS: insulin Lispro (HumaLOG) vial - multi-dose SQ SCH ×2 (08:42→20:34)
[2023-01-10] MEDS: ipratropium/albuterol 3ml nebule NEB PRN (12:42)
--- NOTE | 2023-01-10 13:40 | NUR ---
pt refused his insulin at this time, continue to educate and to kyle
[2023-01-10 14:21] LABS: ALBUMIN 3.2 G/DL (3.4-5.0); BLOOD UREA NITROGEN 27 MG/DL (7-18); BUN/CREATININE RATIO 16.1 (10.0-20.0); CALCIUM 9.7 MG/DL (8.5-10.1); CREATININE 1.68 MG/DL (0.60-1.10); GLUCOSE 261 MG/DL (70-104); TOTAL CARBON DIOXIDE 26.2 MMOL/L (24-32); eCRCL 34 ML/MIN; eGFR 39 ML/MIN
[2023-01-10 14:27] LABS: ANION GAP 11 (8-16); CHLORIDE 103 MMOL/L (99-107); POTASSIUM 3.2 MMOL/L (3.5-5.1); SODIUM 140 MMOL/L (135-145)
[2023-01-10] MEDS: aspirin 81mg, enteric-coated 1 TAB TABLET.DR PO SCH (16:30)
[2023-01-10] MEDS ORDERED: hydrALAZINE 20mg/ml inj. IV PRN (16:50)
--- NOTE | 2023-01-10 18:00 | NUR ---
Patient in room ORTHO 4006. I have received report from ARIAN Lu and had the opportunity to ask questions and assume patient care.
--- NOTE | 2023-01-10 18:15 | NUR ---
gave report to cory mcclellan
[2023-01-10] MEDS ORDERED: DULO60CA65 PO (19:24)
[2023-01-10] MEDS ORDERED: FLO0.4C PO (19:25)
[2023-01-10] MEDS ORDERED: MAGN500C4 PO (19:26)
[2023-01-10] MEDS ORDERED: ACET-1017 PO (19:27)
[2023-01-10] MEDS ORDERED: LIDO15CR11 TOP (19:28)
[2023-01-10] MEDS ORDERED: LIDOCAINE PATCH 4% TOP (19:29)
[2023-01-10] MEDS: tamsulosin 0.4mg capsule PO SCH (20:33)
[2023-01-10] MEDS: insulin glargine (Lantus) pen - multi-dose SQ SCH (20:36)
[2023-01-10] MEDS: temazepam 15mg capsule PO PRN (23:35)
[2023-01-10] MEDS: acetaminophen 325mg tablet PO PRN (23:40)
[2023-01-11 06:00] VITALS: BP 103/65; PULSE 60; RESP 16; TEMP 97.5; O2SAT 95
[2023-01-11 06:12] LABS: BASOPHILS % (AUTO) 0.1 % (0-1); EOSINOPHILS % (AUTO) 0 % (0-6); HEMATOCRIT 38.3 % (42.0-52.0); HEMOGLOBIN 12.6 g/dl (14.0-17.9); LYMPHOCYTES # (AUTO) 0.4 X10'3 (1.1-4.8); LYMPHOCYTES % (AUTO) 3.6 % (21-51); MEAN CORPUSCULAR HEMOGLOBIN 32.9 PG (27.0-31.0); MEAN CORPUSCULAR HGB CONC 32.9 g/dL (33.0-36.5); MEAN CORPUSCULAR VOLUME 99.8 FL (78-98); MEAN PLATELET VOLUME 9.5 FL (7.4-10.4); MONOCYTES # (AUTO) 0.4 X10'3 (0-0.9); MONOCYTES % (AUTO) 3.2 % (2-12); NEUTROPHILS # (AUTO) 11.7 X10'3 (1.8-7.7); NEUTROPHILS % (AUTO) 93.1 % (42-75); PLATELET COUNT 165 X10'3 (140-440); RED BLOOD COUNT 3.84 X10'6 (4.70-6.10); RED CELL DISTRIBUTION WIDTH 14.7 % (11.5-14.5); WHITE BLOOD COUNT 12.5 X10'3 (4.5-11.0)
--- NOTE | 2023-01-11 06:13 | NUR ---
Problems reprioritized. Patient report given, questions answered & plan of care reviewed with ARIAN Crooks.
--- NOTE | 2023-01-11 06:17 | NUR ---
Patient in room ORTHO 4006. I have received report from ARIAN HARDY and had the opportunity to ask questions and assume patient care.
[2023-01-11 06:54] LABS: ALANINE AMINOTRANSFERASE 25 U/L (12-78); ALBUMIN 3.1 G/DL (3.4-5.0); ALBUMIN/GLOBULIN RATIO 0.9 (1.1-1.5); ALKALINE PHOSPHATASE 73 IU/L (46-116); ANION GAP 10 (8-16); ASPARTATE AMINO TRANSFERASE 15 U/L (10-37); BILIRUBIN,TOTAL 0.2 MG/DL (0.1-1.0); BLOOD UREA NITROGEN 30 MG/DL (7-18); BUN/CREATININE RATIO 16.7 (10.0-20.0); CALCIUM 9.3 MG/DL (8.5-10.1); CHLORIDE 105 MMOL/L (99-107); GLUCOSE 242 MG/DL (70-104); MAGNESIUM 2.2 MG/DL (1.5-2.4); PHOSPHORUS 3.2 MG/DL (2.3-4.5); POTASSIUM 3.5 MMOL/L (3.5-5.1); PRO BRAIN NATRIURETIC PEPTIDE 7488 PG/ML (0-450); SODIUM 142 MMOL/L (135-145); TOTAL CARBON DIOXIDE 26.6 MMOL/L (24-32); TOTAL PROTEIN 6.6 G/DL (6.4-8.2); eCRCL 32 ML/MIN; eGFR 36 ML/MIN
[2023-01-11] MEDS: methylPREDNISolone sod succ 125mg/2ml vial IV SCH (07:27)
[2023-01-11] MEDS: gabapentin 400mg capsule PO SCH (07:28)
[2023-01-11] MEDS: multivitamins, therapeutics tablet PO SCH (07:28)
[2023-01-11] MEDS: docusate sod 100mg capsule PO SCH (07:28)
[2023-01-11] MEDS: ezetimibe 10mg tablet PO SCH (07:28)
[2023-01-11] MEDS: beta-carotene(A) w/C & E + minerals tab PO SCH (07:28)
[2023-01-11] MEDS: pantoprazole 40mg Tablet.DR PO SCH (07:28)
[2023-01-11] MEDS: heparin, porcine 5000 units/ml vial SQ SCH (07:28)
[2023-01-11] MEDS: cholecalciferol (vitamin D3) 1,000 unit (25mcg) tablet PO SCH (07:29)
[2023-01-11] MEDS: carvedilol 6.25mg tablet PO SCH (07:29)
[2023-01-11] MEDS: losartan 50mg tablet PO SCH (07:29)
[2023-01-11] MEDS: finasteride 5mg tablet PO SCH (07:30)
[2023-01-11] MEDS: LIDOcaine 5% patch TP SCH (07:30)
[2023-01-11] MEDS: furosemide 40mg tablet PO SCH ×2 (07:30→10:44)
[2023-01-11] MEDS: K and/or MAG REPLACEMENT MC SCH (08:00)
[2023-01-11 10:00] VITALS: BP 166/92; PULSE 58; RESP 18; TEMP 98; O2SAT 97
--- NOTE | 2023-01-11 10:41 | NUR ---
pt spoke with doctor and decided to take the furosemide. Administering now.
[2023-01-11 11:11] VITALS: PULSE 77; RESP 18; O2SAT 96
[2023-01-11] MEDS: ipratropium/albuterol 3ml nebule NEB PRN (11:11)
[2023-01-11 11:20] VITALS: PULSE 80; RESP 20
[2023-01-11] MEDS ORDERED: POTA-366 PO (12:14)
[2023-01-11] MEDS ORDERED: FURO40TA4 PO (12:14)
--- NOTE | 2023-01-11 14:26 | NUR ---
pt refused insulin after his breakfast with BS of 212
--- NOTE | 2023-01-11 15:00 | NUR ---
pt given discharge paperwork and was able to ask questions about discharge. Pt in no distress and wheelchaired down to lobby with all of his belongings. Pt left in private vehicle with spouse.
== END 2023-01-11 14:55 | disposition home health service (06) | DRG 640 ==
LOC: ER 14:57 → ED HOLD 01-09 00:33 → EDBEDREQ 01-09 20:01 → ORTHO 4S 01-09 20:38
PROVIDERS: ADMIT Internal Medicine; ATTEND Family Medicine
DX: E87.6 Hypokalemia (principal); I50.33 Acute on chronic diastolic (congestive) heart failure; N17.0 Acute kidney failure with tubular necrosis; I13.0 Hypertensive heart and chronic kidney disease with heart failure and stage 1 through stage 4 chronic kidney disease, or unspecified chronic kidney disease; E11.22 Type 2 diabetes mellitus with diabetic chronic kidney disease; M54.9 Dorsalgia, unspecified; G89.29 Other chronic pain; D53.9 Nutritional anemia, unspecified; G47.30 Sleep apnea, unspecified; F32.A Depression, unspecified; E78.5 Hyperlipidemia, unspecified; K52.9 Noninfective gastroenteritis and colitis, unspecified; F17.200 Nicotine dependence, unspecified, uncomplicated; N18.30 Chronic kidney disease, stage 3 unspecified; F03.90 Unspecified dementia, unspecified severity, without behavioral disturbance, psychotic disturbance, mood disturbance, and anxiety; J44.9 Chronic obstructive pulmonary disease, unspecified; I25.10 Atherosclerotic heart disease of native coronary artery without angina pectoris; Z88.5 Allergy status to narcotic agent; Z79.82 Long term (current) use of aspirin; Z79.899 Other long term (current) drug therapy; Z86.73 Personal history of transient ischemic attack (TIA), and cerebral infarction without residual deficits; Z95.0 Presence of cardiac pacemaker; Z82.5 Family history of asthma and other chronic lower respiratory diseases
CPT/HCPCS: 36415; 71045; 80048; 80053; 82272; 82607; 82728; 82948; 83036; 83540; 83550; 83735; 83880; 84100; 84132; 84484; 85025; 87045; 87046; 87081; 87324; 87449; 89055; 93306; 93978; 94640; 94760; 99285; A4615; G0378; J1644; J1815; J1940; J2930; J3475; J3480; J7030

== ENCOUNTER 2023-05-17 06:26 | Day surgery (SDC) | payer MEDICARE ==
[2023-05-16 10:17] LABS: BASOPHILS # (AUTO) 0.1 X10'3 (0-0.2); BASOPHILS % (AUTO) 0.6 % (0-1); EOSINOPHILS # (AUTO) 0.2 X10'3 (0-0.9); EOSINOPHILS % (AUTO) 2.5 % (0-6); HEMATOCRIT 38.2 % (42.0-52.0); HEMOGLOBIN 12.8 g/dl (14.0-17.9); LYMPHOCYTES # (AUTO) 0.9 X10'3 (1.1-4.8); LYMPHOCYTES % (AUTO) 10.8 % (21-51); MEAN CORPUSCULAR HEMOGLOBIN 33.8 PG (27.0-31.0); MEAN CORPUSCULAR HGB CONC 33.6 g/dL (33.0-36.5); MEAN CORPUSCULAR VOLUME 100.7 FL (78-98); MEAN PLATELET VOLUME 9.7 FL (7.4-10.4); MONOCYTES # (AUTO) 0.7 X10'3 (0-0.9); NEUTROPHILS # (AUTO) 6.4 X10'3 (1.8-7.7); NEUTROPHILS % (AUTO) 78.1 % (42-75); PLATELET COUNT 142 X10'3 (140-440); RED BLOOD COUNT 3.79 X10'6 (4.70-6.10); RED CELL DISTRIBUTION WIDTH 14.4 % (11.5-14.5); WHITE BLOOD COUNT 8.2 X10'3 (4.5-11.0)
[2023-05-16 10:28] LABS: APTT 26 SECONDS (22-32); PROTHROMBIN TIME 10.4 SECONDS (9.0-12.0)
[2023-05-16 11:34] LABS: ALBUMIN 3.2 G/DL (3.4-5.0); ANION GAP 7 (8-16); BLOOD UREA NITROGEN 26 MG/DL (7-18); CALCIUM 9.1 MG/DL (8.5-10.1); CHLORIDE 108 MMOL/L (99-107); CREATININE 1.73 MG/DL (0.60-1.10); GLUCOSE 147 MG/DL (70-104); POTASSIUM 4.1 MMOL/L (3.5-5.1); SODIUM 144 MMOL/L (135-145); TOTAL CARBON DIOXIDE 28.9 MMOL/L (24-32); eGFR 38 ML/MIN
[2023-05-17] VITALS (11 sets, daily range): BP systolic 135–179; BP diastolic 68–93; PULSE 60–77; RESP 14–17; TEMP 98.1; O2SAT 94–99
[~2023-05-17] VITALS: Ht 175.3 cm; Wt 76.5 kg
[~2023-05-17 06:26] MED LIST changes: -BUDE9TAB PO; +DULO60CA65 PO; +EMPA10TA PO; -EMPA25TA PO; +FLO0.4C PO; +FURO40TA4 PO; +HYDR-3973 PO; -LEVO750T68 PO; +LIDOCAINE PATCH 4% TOP; -LOSA100T58 PO; +MAGN500C4 PO; +PRED5TAB PO; -tamsulosin capsule PO
[2023-05-17] MEDS ORDERED: GABA-535 PO (06:51)
[2023-05-17] MEDS ORDERED: POTA-366 PO (06:51)
[2023-05-17] MEDS ORDERED: FURO40TA4 PO (06:51)
[2023-05-17] MEDS ORDERED: ROSU40TA22 PO (06:51)
[2023-05-17] MEDS ORDERED: verapamil 2.5 mg/ml inj IV ONE (07:16)
[2023-05-17] MEDS ORDERED: LIDOcaine 1% (10mg/ml) 2ml vial ONE (07:16)
[2023-05-17] MEDS ORDERED: iohexol 350MG/ML 100ml bottle IV ONE ×2 (07:16→08:28)
[2023-05-17] MEDS ORDERED: fentaNYL/PF 50MCG/1 ML 2ML syringe ONE (07:16)
[2023-05-17] MEDS ORDERED: midazolam 1 mg/ML 2ml injection ONE ×2 (07:16→08:43)
[2023-05-17] MEDS ORDERED: heparin 1,000unit/ml 10ml vial 10 ML ONE (07:16)
[2023-05-17] MEDS ORDERED: iohexol 350 MG/ML 50ML vial IV ONE (07:16)
[2023-05-17] MEDS ORDERED: nitroGLYCERIN 500mcg/5mL D5W 5 ML IV ONE (07:20)
[2023-05-17] MEDS: diphenhydrAMINE 25mg capsule PO PRN (07:25)
[2023-05-17] MEDS: LORazepam 0.5 MG tablet PO PRN (07:25)
[2023-05-17] MEDS: acetylcysteine 200 MG/ml 4ml vial PO PRN (07:26)
[2023-05-17] MEDS: sodium bicarbonate 1meq/ml syr 150 ML in dextrose 5%-water 1,000 ML IV SCH (07:27)
[2023-05-17] MEDS: normal saline 1,000 ML IV SCH (07:27)
[2023-05-17] MEDS ORDERED: LIDOcaine 1% 30ml preserv. free vial ONE (08:28)
[2023-05-17] MEDS ORDERED: hydrALAZINE 20mg/ml inj. IV ONE (08:47)
[2023-05-17] MEDS ORDERED: HYDROcodone/acetaminophen 10/325mg tab PO PRN (10:25)
[2023-05-17] MEDS ORDERED: HYDROcodone/acetaminophen 5mg/325mg tablet PO PRN (10:25)
[2023-05-17] MEDS ORDERED: sodium bicarbonate 1meq/ml syr 150 ML in dextrose 5%-water 1,000 ML IV SCH (10:25)
[2023-05-17] MEDS ORDERED: acetylcysteine 200 MG/ml 4ml vial PO SCH (20:00)
== END 2023-05-17 16:02 | disposition home or self-care (01) ==
LOC: SSTAY O 06:26
PROVIDERS: ATTEND Internal Medicine Cardiovascular Disease
DX: I25.10 Atherosclerotic heart disease of native coronary artery without angina pectoris (principal); I44.1 Atrioventricular block, second degree; E11.9 Type 2 diabetes mellitus without complications; E78.5 Hyperlipidemia, unspecified; I10 Essential (primary) hypertension; G47.33 Obstructive sleep apnea (adult) (pediatric); I73.9 Peripheral vascular disease, unspecified; J44.9 Chronic obstructive pulmonary disease, unspecified; K21.9 Gastro-esophageal reflux disease without esophagitis; I71.40 Abdominal aortic aneurysm, without rupture, unspecified; N40.0 Benign prostatic hyperplasia without lower urinary tract symptoms; I65.23 Occlusion and stenosis of bilateral carotid arteries; I49.5 Sick sinus syndrome; Z87.440 Personal history of urinary (tract) infections; Z79.899 Other long term (current) drug therapy; Z98.890 Other specified postprocedural states; Z95.0 Presence of cardiac pacemaker; Z82.5 Family history of asthma and other chronic lower respiratory diseases; Z82.49 Family history of ischemic heart disease and other diseases of the circulatory system
CPT/HCPCS: 36415; 76937; 80048; 82948; 85025; 85610; 85730; 93005; 93458; 99152; 99153; A6258; J0360; J1644; J2250; J3010; J3490; J7030; J7070; Q0163; Q9967; 96360; A6402; C1725; C1760; C1769; C1894

== ENCOUNTER 2023-05-18 11:17 | Emergency (ER) | payer OTHER, MEDICARE ==
[~2023-05-18] VITALS: Ht 175.3 cm; Wt 78.0 kg
[~2023-05-18 11:17] MED LIST changes: -BETA1TAB19 PO; +POTA-366 PO; +ROSU40TA22 PO
[2023-05-18 11:20] VITALS: TEMP 98.5
[2023-05-18 11:38] LABS: BASOPHILS % (AUTO) 0.6 % (0-1); EOSINOPHILS # (AUTO) 0.1 X10'3 (0-0.9); EOSINOPHILS % (AUTO) 1.3 % (0-6); HEMATOCRIT 36.2 % (42.0-52.0); LYMPHOCYTES # (AUTO) 0.7 X10'3 (1.1-4.8); LYMPHOCYTES % (AUTO) 10.2 % (21-51); MEAN CORPUSCULAR HEMOGLOBIN 33.2 PG (27.0-31.0); MEAN CORPUSCULAR HGB CONC 33.1 g/dL (33.0-36.5); MEAN CORPUSCULAR VOLUME 100.4 FL (78-98); MEAN PLATELET VOLUME 8.6 FL (7.4-10.4); MONOCYTES # (AUTO) 0.6 X10'3 (0-0.9); MONOCYTES % (AUTO) 8.6 % (2-12); NEUTROPHILS # (AUTO) 5.5 X10'3 (1.8-7.7); NEUTROPHILS % (AUTO) 79.3 % (42-75); PLATELET COUNT 137 X10'3 (140-440); RED CELL DISTRIBUTION WIDTH 14.6 % (11.5-14.5); WHITE BLOOD COUNT 6.9 X10'3 (4.5-11.0)
[2023-05-18 11:58] LABS: ANION GAP 4 (8-16); BLOOD UREA NITROGEN 24 MG/DL (7-18); BUN/CREATININE RATIO 14.7 (10.0-20.0); CALCIUM 9.2 MG/DL (8.5-10.1); CHLORIDE 103 MMOL/L (99-107); CREATININE 1.63 MG/DL (0.60-1.10); GLUCOSE 125 MG/DL (70-104); MAGNESIUM 2.2 MG/DL (1.5-2.4); POTASSIUM 3.9 MMOL/L (3.5-5.1); PRO BRAIN NATRIURETIC PEPTIDE 8795 PG/ML (0-450); SODIUM 139 MMOL/L (135-145); TOTAL CARBON DIOXIDE 32.2 MMOL/L (24-32); eCRCL 35 ML/MIN; eGFR 41 ML/MIN
[2023-05-18 13:52] VITALS: BP 132/88; PULSE 75; RESP 16; O2SAT 94
== END 2023-05-18 13:55 | disposition home or self-care (01) ==
LOC: ER 11:18
DX: R00.2 Palpitations (principal); R42 Dizziness and giddiness; I25.10 Atherosclerotic heart disease of native coronary artery without angina pectoris; I11.0 Hypertensive heart disease with heart failure; I50.9 Heart failure, unspecified; J44.9 Chronic obstructive pulmonary disease, unspecified; F32.A Depression, unspecified; E11.9 Type 2 diabetes mellitus without complications; I25.2 Old myocardial infarction; F17.200 Nicotine dependence, unspecified, uncomplicated; F12.90 Cannabis use, unspecified, uncomplicated; Z72.89 Other problems related to lifestyle
CPT/HCPCS: 36415; 71045; 80048; 83735; 83880; 84484; 85025; 93005; 99285

== ENCOUNTER 2023-07-07 00:59 | Emergency (ER) | payer OTHER, MEDICARE ==
[~2023-07-07] VITALS: Ht 175.3 cm; Wt 72.7 kg
[2023-07-07 01:08] VITALS: BP 110/90; PULSE 89; RESP 19; TEMP 98.4; O2SAT 96
[2023-07-07 01:16] LABS: BASOPHILS # (AUTO) 0.1 X10'3 (0-0.2); BASOPHILS % (AUTO) 0.8 % (0-1); EOSINOPHILS # (AUTO) 0.3 X10'3 (0-0.9); EOSINOPHILS % (AUTO) 3.5 % (0-6); HEMATOCRIT 39.7 % (42.0-52.0); HEMOGLOBIN 13.8 g/dl (14.0-17.9); LYMPHOCYTES # (AUTO) 0.9 X10'3 (1.1-4.8); LYMPHOCYTES % (AUTO) 11.5 % (21-51); MEAN CORPUSCULAR HEMOGLOBIN 33.9 PG (27.0-31.0); MEAN CORPUSCULAR HGB CONC 34.7 g/dL (33.0-36.5); MEAN CORPUSCULAR VOLUME 97.8 FL (78-98); MEAN PLATELET VOLUME 9.3 FL (7.4-10.4); MONOCYTES # (AUTO) 0.6 X10'3 (0-0.9); MONOCYTES % (AUTO) 7.4 % (2-12); NEUTROPHILS # (AUTO) 6.2 X10'3 (1.8-7.7); NEUTROPHILS % (AUTO) 76.8 % (42-75); PLATELET COUNT 150 X10'3 (140-440); RED BLOOD COUNT 4.06 X10'6 (4.70-6.10); RED CELL DISTRIBUTION WIDTH 14.2 % (11.5-14.5); WHITE BLOOD COUNT 8.1 X10'3 (4.5-11.0)
[2023-07-07 01:31] LABS: ALANINE AMINOTRANSFERASE 34 U/L (12-78); ALBUMIN/GLOBULIN RATIO 0.9 (1.1-1.5); ALKALINE PHOSPHATASE 60 IU/L (46-116); ANION GAP 9 (8-16); BILIRUBIN,TOTAL 0.4 MG/DL (0.1-1.0); BLOOD UREA NITROGEN 24 MG/DL (7-18); BUN/CREATININE RATIO 11.2 (10.0-20.0); CALCIUM 8.4 MG/DL (8.5-10.1); CHLORIDE 102 MMOL/L (99-107); CREATININE 2.14 MG/DL (0.60-1.10); SODIUM 142 MMOL/L (135-145); TOTAL CARBON DIOXIDE 31.4 MMOL/L (24-32); TOTAL PROTEIN 6.4 G/DL (6.4-8.2); eCRCL 27 ML/MIN; eGFR 30 ML/MIN
[2023-07-07 01:44] LABS: ASPARTATE AMINO TRANSFERASE 4 U/L (10-37)
[2023-07-07 02:07] LABS: GLUCOSE 208 MG/DL (70-104)
[2023-07-07] MEDS ORDERED: potassium Cl 20 mEq SR tablet PO STA (02:28)
== END 2023-07-07 03:13 | disposition left against medical advice (07) ==
LOC: ER 00:59
DX: R06.02 Shortness of breath (principal); Z53.21 Procedure and treatment not carried out due to patient leaving prior to being seen by health care provider
CPT/HCPCS: 36415; 71045; 80053; 84484; 85025; 93005; 99281

== ENCOUNTER 2023-07-11 19:02 | Emergency (ER) | payer OTHER, MEDICARE ==
[~2023-07-11] VITALS: Ht 175.3 cm; Wt 77.7 kg
[2023-07-11 20:43] LABS: BASOPHILS # (AUTO) 0.1 X10'3 (0-0.2); BASOPHILS % (AUTO) 0.7 % (0-1); EOSINOPHILS # (AUTO) 0.3 X10'3 (0-0.9); HEMATOCRIT 39.6 % (42.0-52.0); HEMOGLOBIN 13.3 g/dl (14.0-17.9); LYMPHOCYTES % (AUTO) 12.3 % (21-51); MEAN CORPUSCULAR HGB CONC 33.6 g/dL (33.0-36.5); MEAN CORPUSCULAR VOLUME 98.4 FL (78-98); MEAN PLATELET VOLUME 9.6 FL (7.4-10.4); MONOCYTES # (AUTO) 0.6 X10'3 (0-0.9); MONOCYTES % (AUTO) 7.6 % (2-12); NEUTROPHILS # (AUTO) 6.3 X10'3 (1.8-7.7); NEUTROPHILS % (AUTO) 75.4 % (42-75); PLATELET COUNT 154 X10'3 (140-440); RED BLOOD COUNT 4.03 X10'6 (4.70-6.10); RED CELL DISTRIBUTION WIDTH 13.9 % (11.5-14.5); WHITE BLOOD COUNT 8.3 X10'3 (4.5-11.0)
[2023-07-11 20:53] LABS: ANION GAP 7 (8-16); BLOOD UREA NITROGEN 30 MG/DL (7-18); BUN/CREATININE RATIO 15.3 (10.0-20.0); CHLORIDE 107 MMOL/L (99-107); CREATININE 1.96 MG/DL (0.60-1.10); GLUCOSE 178 MG/DL (70-104); POTASSIUM 3.6 MMOL/L (3.5-5.1); PRO BRAIN NATRIURETIC PEPTIDE 7031 PG/ML (0-450); SODIUM 141 MMOL/L (135-145); TOTAL CARBON DIOXIDE 27.4 MMOL/L (24-32); eCRCL 29 ML/MIN; eGFR 33 ML/MIN
[2023-07-11 23:06] LABS: PRO BRAIN NATRIURETIC PEPTIDE 6352 PG/ML (0-450)
[2023-07-11] MEDS ORDERED: AMOX-419 PO (23:57)
[2023-07-11] MEDS ORDERED: AZIT-164 PO (23:57)
[2023-07-12] MEDS: amox tr/potassium clavulanate 500mg/125mg TAB PO ONE (00:08)
[2023-07-12] MEDS: ondansetron 4mg rapidly disintigrating tab PO ONE (00:08)
[2023-07-12] MEDS: azithromycin 250mg tablet PO ONE (00:09)
[2023-07-12 00:19] VITALS: PULSE 70
[2023-07-12 00:20] VITALS: BP 154/84; RESP 16; TEMP 98.6; O2SAT 94
== END 2023-07-12 00:24 | disposition home or self-care (01) ==
LOC: ER 19:03
DX: R05.9 Cough, unspecified (principal); R50.9 Fever, unspecified; Z86.73 Personal history of transient ischemic attack (TIA), and cerebral infarction without residual deficits; I25.10 Atherosclerotic heart disease of native coronary artery without angina pectoris; I11.0 Hypertensive heart disease with heart failure; I50.9 Heart failure, unspecified; E78.00 Pure hypercholesterolemia, unspecified; I25.2 Old myocardial infarction; J44.9 Chronic obstructive pulmonary disease, unspecified; E11.9 Type 2 diabetes mellitus without complications; G89.29 Other chronic pain; M54.9 Dorsalgia, unspecified; F32.9 Major depressive disorder, single episode, unspecified; G47.30 Sleep apnea, unspecified
CPT/HCPCS: 36415; 71046; 80048; 83605; 83880; 84484; 85025; 87040; 93005; 99285; J7030

== ENCOUNTER 2023-11-12 21:33 | Inpatient (IN) | payer OTHER, MEDICARE ==
[~2023-11-12] VITALS: Ht 175.3 cm; Wt 75.4 kg
[~2023-11-12 21:33] MED LIST changes: -ROSU40TA22 PO; +ROSU40TA71 PO
[2023-11-12 21:54] LABS: BASOPHILS # (AUTO) 0.1 X10'3 (0-0.2); BASOPHILS % (AUTO) 0.6 % (0-1); EOSINOPHILS # (AUTO) 0.3 X10'3 (0-0.9); EOSINOPHILS % (AUTO) 3.1 % (0-6); HEMATOCRIT 36.1 % (42.0-52.0); HEMOGLOBIN 12.2 g/dl (14.0-17.9); LYMPHOCYTES # (AUTO) 0.5 X10'3 (1.1-4.8); LYMPHOCYTES % (AUTO) 5.3 % (21-51); MEAN CORPUSCULAR HGB CONC 33.6 g/dL (33.0-36.5); MEAN PLATELET VOLUME 9.4 FL (7.4-10.4); MONOCYTES # (AUTO) 0.6 X10'3 (0-0.9); MONOCYTES % (AUTO) 6.6 % (2-12); NEUTROPHILS # (AUTO) 7.4 X10'3 (1.8-7.7); NEUTROPHILS % (AUTO) 84.4 % (42-75); PLATELET COUNT 122 X10'3 (140-440); RED BLOOD COUNT 3.58 X10'6 (4.70-6.10); RED CELL DISTRIBUTION WIDTH 15.4 % (11.5-14.5); WHITE BLOOD COUNT 8.7 X10'3 (4.5-11.0)
[2023-11-12 22:08] LABS: D-DIMER 2.32 MG/L FEU (0-0.50)
[2023-11-12 22:16] LABS: ALBUMIN 2.7 G/DL (3.4-5.0); ANION GAP 10 (8-16); BLOOD UREA NITROGEN 25 MG/DL (7-18); BUN/CREATININE RATIO 14.2 (10.0-20.0); CALCIUM 8.5 MG/DL (8.5-10.1); CHLORIDE 106 MMOL/L (99-107); CREATININE 1.76 MG/DL (0.60-1.10); GLUCOSE 210 MG/DL (70-104); POTASSIUM 4.4 MMOL/L (3.5-5.1); PRO BRAIN NATRIURETIC PEPTIDE 18866 PG/ML (0-450); SODIUM 138 MMOL/L (135-145); TOTAL CARBON DIOXIDE 21.9 MMOL/L (24-32); eCRCL 32 ML/MIN; eGFR 37 ML/MIN
[2023-11-12] MEDS: CefTRIAXone 2gm/D5W 50ml BAG 50 ML IV ONE (22:38)
--- NOTE | 2023-11-12 22:50 | NUR ---
recieved patient on wheelchair complaining of SOB; placed on bed on hihg fowlers and hooked on 02 2 LPM; patient in mild respiratory distress; awaiting for orders
[2023-11-12 23:13] VITALS: PULSE 84; RESP 18; O2SAT 92
[2023-11-12] MEDS: ipratropium/albuterol 3ml nebule NEB ONE (23:13)
[2023-11-12 23:21] VITALS: PULSE 93; RESP 16; O2SAT 100
[2023-11-12] MEDS: furosemide 10 MG/1 ML 10ml inj IV ONE (23:51)
[2023-11-12] MEDS: azithromycin/NS 500mg/250ml 250 ML IV SCH (23:57)
[2023-11-13] VITALS (18 sets, daily range): BP systolic 101–141; BP diastolic 60–88; PULSE 50–92; RESP 16–22; TEMP 97.7–98.2; O2SAT 88–99
[2023-11-13] MEDS ORDERED: magnesium sulf-water 2g/50mL 50 ML IV PRN
[2023-11-13] MEDS: PERFLUTREN PROTEIN-A MICROSPHR (Optison) 0.22 MG/ML 3ML VIAL IV ONE
[2023-11-13] MEDS ORDERED: potassium Cl 40MEQ/1/2NS 520ml 520 ML IV PRN
[2023-11-13] MEDS ORDERED: acetaminophen 325mg tablet PO PRN
[2023-11-13] MEDS ORDERED: potassium Cl 20 mEq SR tablet PO PRN ×2
[2023-11-13] MEDS ORDERED: ondansetron/PF 4mg/2ml inj IV PRN
[2023-11-13] MEDS ORDERED: magnesium sulf-water 4G/100mL 100 ML IV PRN
[2023-11-13] MEDS ORDERED: magnesium Cl slow-release 64mg tablet PO PRN
[2023-11-13] MEDS ORDERED: ipratropium/albuterol 3ml nebule NEB PRN (00:30)
[2023-11-13] MEDS: azithromycin/NS 500mg/250ml 250 ML IV SCH ×2 (00:31→08:08)
--- NOTE | 2023-11-13 00:36 | NUR ---
patient verbalilzed imporvement of breathing; continue to be monitored
[2023-11-13] MEDS ORDERED: CARV6.253 PO (01:05)
[2023-11-13 01:06] LABS: HEMOGLOBIN A1C 7.4 % (4.5-6.2)
--- NOTE | 2023-11-13 02:51 | NUR ---
hospitalist @ bedside and laboratory supervisor on cam reviewed patient diagnoses; orders were made
[2023-11-13] MEDS: methylPREDNISolone sod succ 125mg/2ml vial IV ONE (02:57)
[2023-11-13] MEDS: ipratropium/albuterol 3ml nebule NEB SCH (03:17)
[2023-11-13] MEDS: nicotine 14mg patch - 24hr TD ONE (03:25)
[2023-11-13 03:29] LABS: BASOPHILS % (AUTO) 0.5 % (0-1); EOSINOPHILS # (AUTO) 0.1 X10'3 (0-0.9); EOSINOPHILS % (AUTO) 1.2 % (0-6); HEMATOCRIT 38.5 % (42.0-52.0); HEMOGLOBIN 12.6 g/dl (14.0-17.9); LYMPHOCYTES # (AUTO) 0.5 X10'3 (1.1-4.8); LYMPHOCYTES % (AUTO) 6.2 % (21-51); MEAN CORPUSCULAR HEMOGLOBIN 32.9 PG (27.0-31.0); MEAN CORPUSCULAR HGB CONC 32.8 g/dL (33.0-36.5); MEAN CORPUSCULAR VOLUME 100.4 FL (78-98); MEAN PLATELET VOLUME 9.8 FL (7.4-10.4); MONOCYTES # (AUTO) 0.5 X10'3 (0-0.9); MONOCYTES % (AUTO) 6.1 % (2-12); NEUTROPHILS # (AUTO) 7.5 X10'3 (1.8-7.7); PLATELET COUNT 125 X10'3 (140-440); RED BLOOD COUNT 3.83 X10'6 (4.70-6.10); RED CELL DISTRIBUTION WIDTH 15.3 % (11.5-14.5); WHITE BLOOD COUNT 8.8 X10'3 (4.5-11.0)
[2023-11-13 03:44] LABS: ALBUMIN 2.9 G/DL (3.4-5.0); ANION GAP 9 (8-16); BLOOD UREA NITROGEN 24 MG/DL (7-18); BUN/CREATININE RATIO 14.6 (10.0-20.0); CALCIUM 8.8 MG/DL (8.5-10.1); CHLORIDE 104 MMOL/L (99-107); CHOL/HDL RATIO 2.8 (0.00-4.99); CHOLESTEROL 178 MG/DL (0-200); CREATININE 1.64 MG/DL (0.60-1.10); GLUCOSE 183 MG/DL (70-104); HDL CHOLESTEROL 63 MG/DL (35-60); LDL CHOLESTEROL 92 MG/DL (50-100); POTASSIUM 4.2 MMOL/L (3.5-5.1); SODIUM 138 MMOL/L (135-145); TOTAL CARBON DIOXIDE 25.3 MMOL/L (24-32); TRIGLYCERIDES 82 MG/DL (20-135); eCRCL 35 ML/MIN; eGFR 40 ML/MIN
[2023-11-13] MEDS: K and/or MAG REPLACEMENT MC SCH (08:00)
[2023-11-13] MEDS: furosemide 10 MG/1 ML 10ml inj IV SCH (08:07)
[2023-11-13] MEDS: methylPREDNISolone sod succ 125mg/2ml vial IV SCH (08:07)
[2023-11-13] MEDS: CefTRIAXone/D5W-Rocephin 1gm 50 ML IV SCH (08:08)
[2023-11-13] MEDS: heparin, porcine 5000 units/ml vial SQ SCH (08:08)
[2023-11-13] MEDS ORDERED: albuterol 2.5 MG/3 ML nebule NEB PRN (08:40)
--- NOTE | 2023-11-13 11:21 | NUR ---
Diabetes consult: Pt presents with a hx of T2DM and an A1c of 7.4% this admit. Given well controlled A1c for geriatric age, DM nutrition education is not warranted at this time. Will continue to monitor and make recommendations. Addendum: 11/13/23 at [address] Amended: Links added.
[2023-11-13] MEDS ORDERED: HYDROcodone/acetaminophen 10/325mg tab PO PRN (15:35)
[2023-11-13] MEDS ORDERED: LIDOCAINE 4% TOP PRN (15:35)
--- NOTE | 2023-11-13 18:41 | NUR ---
Problems reprioritized. Patient report given, questions answered & plan of care reviewed with Jacinda DON.
[2023-11-13] MEDS: magnesium oxide 400mg tablet PO SCH (21:11)
[2023-11-13] MEDS: duloxetine 30mg CAPSULE.DR PO SCH (21:13)
[2023-11-13] MEDS: carVEDilol 3.125mg tablet PO SCH (21:13)
[2023-11-13] MEDS: cholecalciferol (vitamin D3) 1,000 unit (25mcg) tablet PO SCH (21:13)
[2023-11-13] MEDS: gabapentin 400mg capsule PO SCH (21:14)
[2023-11-13] MEDS: aspirin 81mg, enteric-coated 1 TAB TABLET.DR PO SCH (21:19)
--- NOTE | 2023-11-14 00:57 | NUR ---
POLYMERIZATION OVEN TENDER documentation: I have reviewed and agree with the assessment performed and documented by LYNDON Aragon unless otherwise notated in the charted.
[2023-11-14 03:59] VITALS: PULSE 76; RESP 18; O2SAT 89
[2023-11-14 04:06] VITALS: PULSE 78; RESP 18
[2023-11-14 06:07] LABS: ALBUMIN 2.6 G/DL (3.4-5.0); ANION GAP 9 (8-16); BLOOD UREA NITROGEN 34 MG/DL (7-18); BUN/CREATININE RATIO 19.2 (10.0-20.0); CALCIUM 9.1 MG/DL (8.5-10.1); CHLORIDE 103 MMOL/L (99-107); CREATININE 1.77 MG/DL (0.60-1.10); GLUCOSE 196 MG/DL (70-104); POTASSIUM 3.4 MMOL/L (3.5-5.1); SODIUM 139 MMOL/L (135-145); TOTAL CARBON DIOXIDE 26.7 MMOL/L (24-32); eCRCL 32 ML/MIN; eGFR 37 ML/MIN
--- NOTE | 2023-11-14 06:30 | NUR ---
Patient in room PCU 3009. I have received report from Jacinda HANEY and had the opportunity to ask questions and assume patient care.
--- NOTE | 2023-11-14 06:32 | NUR ---
Problems reprioritized. Patient report given, questions answered & plan of care reviewed with PRANAY HANEY.
[2023-11-14 07:00] VITALS: BP 94/55; PULSE 71; RESP 18; TEMP 98.1; O2SAT 24
[2023-11-14] MEDS: potassium Cl 20 mEq SR tablet PO SCH (08:14)
[2023-11-14] MEDS: pantoprazole 40mg Tablet.DR PO SCH (08:14)
[2023-11-14] MEDS: multivitamins, therapeutics tablet PO SCH (08:15)
[2023-11-14] MEDS: atorvastatin 20mg tablet PO SCH (08:15)
[2023-11-14] MEDS: EMPAGLIFLOZIN 10 MG TABLET PO SCH (08:15)
[2023-11-14] MEDS: ezetimibe 10mg tablet PO SCH (08:15)
[2023-11-14 08:19] VITALS: BP_SYST 111; PULSE 74
[2023-11-14] MEDS: lisinopril 2.5mg tablet PO SCH (08:19)
[2023-11-14] MEDS ORDERED: AZIT500T9 PO (08:56)
[2023-11-14] MEDS ORDERED: PRED20TA PO (08:56)
[2023-11-14] MEDS ORDERED: LISI2.5T14 PO (08:56)
[2023-11-14] MEDS ORDERED: FURO40TA4 PO (08:56)
--- NOTE | 2023-11-14 10:29 | NUR ---
Reviewed and agree with Stacy HANEY's assessment
--- NOTE | 2023-11-14 11:20 | NUR ---
Patient discharged home with all belongings and discharge instructions. IV removed and tele monitor removed and returned to telephone claims representative. Escorted out via wheel chair and left in private vehicle.
[2023-11-14 12:06] LABS: HEMATOCRIT 35.5 % (43.5-53.7); HEMOGLOBIN 12.1 G/DL (12.5-16.3); MEAN CORPUSCULAR HEMOGLOBIN 33.4 PG (27-31.2); MEAN CORPUSCULAR VOLUME 98.3 FL (81-97); RED BLOOD COUNT 3.61 X10'6 (4.30-5.90)
[2023-11-14 12:07] LABS: BASOPHILS % 0 % (0-2); EOSINOPHILS # (AUTO) 0.1 X10'3 (0-0.9); EOSINOPHILS % (AUTO) 1 % (0-5); LYMPHOCYTES # (AUTO) 0.6 X10'3 (0.6-4.1); LYMPHOCYTES % 7 % (24-44); MONOCYTES # (AUTO) 0.6 X10'3 (0-0.9); MONOCYTES % 8 % (0-12); NEUTROPHILS # (AUTO) 6.7 X10'3 (>=1.4); PLATELET COUNT 123 X10'3 (130-400); RED CELL DISTRIBUTION WIDTH 14.7 % (11-16); SEGMENTED NEUTROPHILS % 84 % (36-66)
== END 2023-11-14 11:20 | disposition home or self-care (01) | DRG 291 ==
LOC: ER 21:34 → ED HOLD 11-13 00:26 → PCU 3S 11-13 05:17
PROVIDERS: ADMIT Internal Medicine Critical Care Medicine; ATTEND Family Medicine
PROC: CB121ZZ Planar Nuclear Medicine Imaging of Lungs and Bronchi using Technetium 99m (Tc-99m) (ICD-10-PCS; principal; 2023-11-13)
DX: I13.0 Hypertensive heart and chronic kidney disease with heart failure and stage 1 through stage 4 chronic kidney disease, or unspecified chronic kidney disease (principal); I50.43 Acute on chronic combined systolic (congestive) and diastolic (congestive) heart failure; J96.20 Acute and chronic respiratory failure, unspecified whether with hypoxia or hypercapnia; J44.1 Chronic obstructive pulmonary disease with (acute) exacerbation; J44.0 Chronic obstructive pulmonary disease with (acute) lower respiratory infection; F32.A Depression, unspecified; G47.30 Sleep apnea, unspecified; Z20.822 Contact with and (suspected) exposure to COVID-19; G89.29 Other chronic pain; M54.9 Dorsalgia, unspecified; E11.22 Type 2 diabetes mellitus with diabetic chronic kidney disease; E78.00 Pure hypercholesterolemia, unspecified; N18.30 Chronic kidney disease, stage 3 unspecified; F03.90 Unspecified dementia, unspecified severity, without behavioral disturbance, psychotic disturbance, mood disturbance, and anxiety; F17.210 Nicotine dependence, cigarettes, uncomplicated; I65.21 Occlusion and stenosis of right carotid artery; E11.51 Type 2 diabetes mellitus with diabetic peripheral angiopathy without gangrene; I71.40 Abdominal aortic aneurysm, without rupture, unspecified; I25.10 Atherosclerotic heart disease of native coronary artery without angina pectoris; Z79.84 Long term (current) use of oral hypoglycemic drugs; Z79.82 Long term (current) use of aspirin; Z79.899 Other long term (current) drug therapy; I25.2 Old myocardial infarction; Z95.0 Presence of cardiac pacemaker; Z99.81 Dependence on supplemental oxygen; Z82.49 Family history of ischemic heart disease and other diseases of the circulatory system; Z88.8 Allergy status to other drugs, medicaments and biological substances; Z86.73 Personal history of transient ischemic attack (TIA), and cerebral infarction without residual deficits; Z82.5 Family history of asthma and other chronic lower respiratory diseases; Z88.6 Allergy status to analgesic agent; Z71.6 Tobacco abuse counseling
CPT/HCPCS: 36415; 71045; 78582; 80048; 80061; 83036; 83605; 83735; 83880; 84145; 84484; 85025; 85379; 87040; 87081; 87811; 93005; 93306; 93970; 94640; 94760; 97116; 97161; 97530; 99285; A4615; A9539; A9540; G0378; J0456; J0696; J1644; J1940; J2919; J7040

== ENCOUNTER 2024-02-10 11:16 | Emergency (ER) | payer OTHER, MEDICARE ==
[~2024-02-10] VITALS: Ht 175.3 cm; Wt 165.0 kg
[~2024-02-10 11:16] MED LIST changes: -CARV6.252 PO; +CARV6.253 PO; -FINA5TAB11 PO; -FLO0.4C PO; -GABA-535 PO; -LIDOCAINE PATCH 4% TOP; +LISI2.5T14 PO; -PRED5TAB PO; -ROSU40TA71 PO; +ROSU40TA89 PO
[2024-02-10 12:27] LABS: BASOPHILS % (AUTO) 0.6 % (0-1); EOSINOPHILS # (AUTO) 0.4 X10'3 (0-0.9); EOSINOPHILS % (AUTO) 4.5 % (0-6); HEMATOCRIT 39.6 % (42.0-52.0); HEMOGLOBIN 13.2 g/dl (14.0-17.9); LYMPHOCYTES # (AUTO) 0.9 X10'3 (1.1-4.8); MEAN CORPUSCULAR HGB CONC 33.4 g/dL (33.0-36.5); MEAN CORPUSCULAR VOLUME 98.7 FL (78-98); MONOCYTES # (AUTO) 0.7 X10'3 (0-0.9); MONOCYTES % (AUTO) 9.1 % (2-12); NEUTROPHILS # (AUTO) 5.8 X10'3 (1.8-7.7); NEUTROPHILS % (AUTO) 73.8 % (42-75); PLATELET COUNT 169 X10'3 (140-440); RED BLOOD COUNT 4.01 X10'6 (4.70-6.10); RED CELL DISTRIBUTION WIDTH 14.4 % (11.5-14.5); WHITE BLOOD COUNT 7.8 X10'3 (4.5-11.0)
[2024-02-10 12:38] LABS: ALBUMIN 3.3 G/DL (3.4-5.0); ANION GAP 5 (8-16); BLOOD UREA NITROGEN 26 MG/DL (7-18); CALCIUM 9.3 MG/DL (8.5-10.1); CHLORIDE 108 MMOL/L (99-107); CREATININE 1.73 MG/DL (0.60-1.10); GLUCOSE 114 MG/DL (70-104); POTASSIUM 4.5 MMOL/L (3.5-5.1); SODIUM 141 MMOL/L (135-145); TOTAL CARBON DIOXIDE 27.7 MMOL/L (24-32); eCRCL 33 ML/MIN; eGFR 38 ML/MIN
[2024-02-10 15:40] VITALS: BP 160/72; PULSE 75; RESP 18; TEMP 97.8; O2SAT 96
== END 2024-02-10 15:41 | disposition home or self-care (01) ==
LOC: ER 11:17
DX: R42 Dizziness and giddiness (principal); I11.0 Hypertensive heart disease with heart failure; I50.9 Heart failure, unspecified; F03.911 Unspecified dementia, unspecified severity, with agitation; I25.2 Old myocardial infarction; I25.10 Atherosclerotic heart disease of native coronary artery without angina pectoris; J44.9 Chronic obstructive pulmonary disease, unspecified; G89.29 Other chronic pain; G47.30 Sleep apnea, unspecified; E78.00 Pure hypercholesterolemia, unspecified; F12.90 Cannabis use, unspecified, uncomplicated; E11.9 Type 2 diabetes mellitus without complications; Z88.5 Allergy status to narcotic agent; Z88.8 Allergy status to other drugs, medicaments and biological substances; Z79.82 Long term (current) use of aspirin; Z79.899 Other long term (current) drug therapy; Z86.73 Personal history of transient ischemic attack (TIA), and cerebral infarction without residual deficits
CPT/HCPCS: 36415; 70450; 80048; 82948; 85025; 99285

== ENCOUNTER 2024-10-23 13:50 | Outpatient (CLI) | payer MEDICARE, OTHER ==
--- NOTE | 2024-10-23 22:07 | RADIOLOGY REPORT ---
EXAM: MR MRI LUMBAR SPINE CLINICAL HISTORY: INTERVERTEBRAL DIS DISORDER [place] [id number] PACER COMPARISON: MRI LUMBAR SPINE on DOS: 08/09/22 TECHNIQUE: MRI imaging of the lumbar was performed on a MRI imaging system without intravenous contrast. FINDINGS: For the purposes of this examination, the last well-formed intervertebral disc space will be designat ed as L5-S1. By this convention, the conus medullaris terminates at the L1 level. There is severe convex left curvature of the lumbar spine with apex at L3-L4. There is 3 mm of retrol isthesis of L5 on S1. There is no fracture or subluxation. Vascular modic and plate degenerative espinoza ges at L1-L2. There is severe multi level disc desiccation with height loss notably from L1-S1. At L1-L2, there is a large left paracentral and foraminal and extraforaminal disc extrusion measuring up to 12 mm in craniocaudal dimension. There is severe left neuroforaminal narrowing and mild spinal canal stenosis. The left neuroforaminal narrowing is a result of spinal alignment and extruded disc. At all L2-L3, there is a small left central and extraforaminal disc extrusion with severe left neurof oraminal narrowing secondary to spinal alignment. At L3-L4, there is a central disc extrusion with moderate facet arthrosis and ligamentum flavum unfol ding. This results in moderate right and severe left neuroforaminal narrowing. There is severe spinal canal stenosis. At L4-L5, there is a posterior central disc bulge with superimposed right extraforaminal disc extrusi on with mild facet arthrosis. There is severe right and left neuroforaminal narrowing secondary to sp inal alignment. At L5-S1, there is a large right foraminal disc extrusion combined with spinal alignment and severe f acet arthrosis and mild ligament inflamed infolding results in severe bilateral neuroforaminal narrow ing. There is mild spinal canal stenosis. Incidental note of numerous simple appearing cysts arising from the kidney, largest of which measures 9 cm. IMPRESSION: 1. Convex left scoliosis of the lumbar spine combined with multi level discogenic and spondylitic deg enerative changes results in multi level high grade neuroforaminal narrowing as described above. Spin al canal stenosis is worse at L3-L4. 2. Fibrovascular modic degenerative changes at L1-L2
== END 2024-10-23 23:59 | disposition home or self-care (01) ==
LOC: MRI02 13:50
PROVIDERS: ATTEND Physician Assistant
DX: M51.16 Intervertebral disc disorders with radiculopathy, lumbar region (principal); M51.27 Other intervertebral disc displacement, lumbosacral region; M54.51 Vertebrogenic low back pain; M41.86 Other forms of scoliosis, lumbar region; M47.26 Other spondylosis with radiculopathy, lumbar region; M48.061 Spinal stenosis, lumbar region without neurogenic claudication; M46.86 Other specified inflammatory spondylopathies, lumbar region
CPT/HCPCS: 72148

== ENCOUNTER 2024-12-19 09:47 | Inpatient (IN) | payer OTHER, MEDICARE ==
[~2024-12-19] VITALS: Ht 175.3 cm; Wt 78.3 kg
[2024-12-19] VITALS (14 sets, daily range): BP systolic 129–165; BP diastolic 73–133; PULSE 78–92; RESP 13–26; TEMP 97.7–97.8; O2SAT 92–97
--- NOTE | 2024-12-19 10:14 | ELECTROCARDIOGRAPH REPORT ---
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 Wesley Baltazar Measurements Intervals [place] Rate: 87 P: 64 NE: 243 QRS: -36 QRSD: 116 T: 154 QT: 394 QTc: 474 Interpretive Statements Sinus rhythm Prolonged NE interval Probable left atrial enlargement LVH with IVCD, LAD and secondary repol abnrm Electronically Signed On 12-19-2024 19:18:[address] Wesley Baltazar Please click the below link to view image of tracing.
[2024-12-19 10:20] LABS: MEAN PLATELET VOLUME 10.0 FL (7.4-10.4); RED CELL DISTRIBUTION WIDTH 14.0 % (11.5-14.5)
--- NOTE | 2024-12-19 10:27 | Physician Documentation ---
History of Present Illness General Chief Complaint: Shortness of Breath Stated Complaint: SOB Time Seen by MD: 10:18 Primary Medical Doctor: Primary services: Dr. Cruz, cardiology services: Dr. Parra History of Present Illness Initial Comments The patient is an 84-year-old male with a history of CAD, CHF, COPD in who is current smoker (1.5 pack/day) presenting to ED for evaluation of shortness of breath. Patient wakes up gasping for breath at night. He reports that he does take Lasix 40 mg daily at home. He also reports that he was prescribed oxygen but quit using it about 11 months ago when he thought he might be moving. Medication Reconciliation Allergies: Coded Allergies: No Known Allergies (Unverified , 12/19/24) Scheduled Aspirin (Aspir 81), 1 TAB PO QDD, (Reported) Cholecalciferol (Vitamin D), 3 TAB PO BID, (Reported) Dexlansoprazole (Dexilant), 1 CAP PO DAILY, (Reported) Duloxetine HCl (Duloxetine HCl), 1 CAP PO HS, (Reported) Empagliflozin (Jardiance), 1 TAB PO DAILY, (Reported) Ezetimibe (Ezetimibe), 1 TAB PO DAILY, (Reported) Furosemide 40 MG (Lasix), 1 TAB PO BID Lisinopril (Lisinopril), 1 TAB PO DAILY, (Reported) Magnesium Oxide (Magnesium), 1 CAP PO HS, (Reported) Multivitamin (Multivitamins), 1 TAB PO DAILY, (Reported) Potassium Chloride (Potassium Chloride), 2 TAB PO DAILY, (Reported) Rosuvastatin Calcium (Rosuvastatin Calcium), 1 TAB PO DAILY, (Reported) Scheduled PRN Carvedilol (Carvedilol), 1-2 TAB PO PRN PRN for high blood pressure, (Reported) Hydrocodone Bit/Acetaminophen (Hydrocodone-Apap 10-325 Tablet), 1 TABLET PO HS PRN for severe pain (7-10), (Reported) Past Medical History Past Medical History: CVA/TIA/Stroke, Dementia, Coronary Artery Disease, Congestive Heart Failure, High Cholesterol, Hypertension, Myocardial Infarction, Vascular Disease, COPD, Sleep Apnea, Diabetes, Chronic Back Pain, Depression Past Surgical History: orthopedic surgeries, other Smoking: Greater than 1 pack/day Alcohol Use: Sober Drug Use: marijuana Lives with: Family Lives In: Home Occupation: retired Review of Systems ROS Constitutional: Denies chills, fatigue, fever, weight gain or weight loss. HEENT: Denies hearing loss, sinus pressure or visual changes. Respiratory: Shortness of breath, wheezing and orthopnea. Cardiovascular: Denies chest pain, pain while walking (claudication), edema or palpitations. Gastrointestinal: Denies abdominal pain, blood in stool, constipation, diarrhea, heartburn, loss of appetite, nausea or vomiting. Genitourinary: Denies painful urination (dysuria), excessive amount of urine (polyuria) or urinary frequency. Metabolic/Endocrine: Denies cold intolerance, heat intolerance, excessive thirst (polydipsia) or excessive hunger (polyphagia). Neurological: Denies dizziness, extremity numbness, extremity weakness, heada ches, seizures or tremors. Psychiatric: Denies anxiety or depression. Integumentary: Denies breast discharge, breast lump, hives, mole change(s), rash or skin lesion. Musculoskeletal: Denies back pain, joint pain, joint swelling or neck pain. Hematologic: Denies easily bleeding, easily bruises, lymphedema or issues with blood clots. Immunologic: Denies food allergies or seasonal allergies. Physical Exam Physical Exam Vital Signs: Temperature: 98.0, Source: Oral, Heart Rate: 81, Respiratory Rate: 17, BP: 140/110, Pulse Oximetry: 96, Weight: 84.000 Physical Exam Physical Exam Vitals and nursing note reviewed. Constitutional: General: Patient is awake, alert, oriented x 4 in no acute distress and well appearing. Speech is clear and lucid. Appearance: Normal appearance. Patient is not ill-appearing, toxic-appearing or diaphoretic. HENT: Head: Normocephalic and atraumatic. Mouth/Throat: Mouth: Mucous membranes are moist. Pharynx: Oropharynx is clear. Eyes: General: No scleral icterus. Extraocular Movements: Extraocular movements intact. Pupils: Pupils are equal, round, and reactive to light. Neck: Supple, no Kernig or Brudzinski sign. Cardiovascular: Rate and Rhythm: Normal rate and regular rhythm. Heart sounds: No murmur heard. Pulmonary: Effort: No respiratory distress. Breath sounds: Bilateral wheezing, no retractions Abdominal: General: There is no distension. Palpations: There is no fluid wave, hepatomegaly or mass. Tenderness: There is no abdominal tenderness. There is no guarding. Musculoskeletal: General: No swelling or deformity. Skin: Coloration: Skin is not jaundiced. Findings: No erythema or rash. Neurological: Mental Status: Patient is alert. Progress Results/Orders Results/Orders Orders - AURELIANO AVENDANO MD Chest,Single View (12/19/24 10:05) Monitor (12/19/24 10:05) Saline Lock (12/19/24 10:05) Oxygen (12/19/24 10:05) Hs Troponin I W Calculations (12/19/24 12:05) Hs Troponin I W Calculations (12/19/24 13:05) Covid19 Binax Poc Result Entry (12/19/24 11:03) Ipratropium/Albuterol Nebule (Ipratrop/A (12/19/24 11:12) Page Hospitalist (12/19/24 11:21) Completed Orders - AURELIANO AVENDANO MD Chest,Single View (12/19/24 10:05) Cbc/Diff (12/19/24 10:05) BMP (12/19/24 10:05) PBNP (12/19/24 10:05) Electrocardiogram (12/19/24 10:05) Hs Troponin I W Calculations (12/19/24 10:05) MG (12/19/24 10:08) Aspirin 81mg Chew Tablet (Aspirin 81mg C (12/19/24 11:10) Furosemide Inj (Lasix Inj) (12/19/24 11:10) Methylprednisolone Sod Succ (Solumedrol (12/19/24 11:10) Medications Received in ER Medications (Trade) Dose Ordered Sig/Ian Route PRN Reason Start Time Stop Time Status Last Admin Dose Admin (aspirin 81MG chew tablet) 324 mg ONCE ONCE PO 12/19/24 11:10 12/19/24 11:13 DC 12/19/24 11:21 324 MG (Lasix inj) 80 mg ONCE ONCE IV 12/19/24 11:10 12/19/24 11:13 DC 12/19/24 11:23 80 MG (SoluMEDROL 125mg inj) 125 mg ONCE ONCE IV 12/19/24 11:10 12/19/24 11:13 DC 12/19/24 11:23 125 MG Vital Signs 12/19/24 09:53 Temp 98.0 Pulse 81 Resp 17 B/P (MAP) 140/110 Pulse Ox 96 Laboratory Tests Test 12/19/24 10:08 White Blood Count 8.5 Red Blood Count 3.60 L Hemoglobin 11.9 L Hematocrit 35.8 L Mean Corpuscular Volume 99.6 H Mean Corpuscular Hemoglobin 33.1 H Mean Corpuscular Hemoglobin Concent 33.3 Red Cell Distribution Width 14.0 Platelet Count 147 Mean Platelet Volume 10.0 Neutrophils (%) (Auto) 78.1 H Lymphocytes (%) (Auto) 8.5 L Monocytes (%) (Auto) 8.5 Eosinophils (%) (Auto) 4.0 Basophils (%) (Auto) 0.9 Neutrophils # (Auto) 6.6 Lymphocytes # (Auto) 0.7 L Monocytes # (Auto) 0.7 Eosinophils # (Auto) 0.3 Basophils # (Auto) 0.1 CBC Comment Sodium Level 141 Potassium Level 3.8 Chloride Level 106 Carbon Dioxide Level 23.3 L Anion Gap 12 Blood Urea Nitrogen 41 H Creatinine 1.79 H Estimated GFR/1.73 m2 36 BUN/Creatinine Ratio 22.9 H Glucose Level 122 H Calcium Level 9.3 Magnesium Level 1.9 Troponin I High Sensitivity 1474 *H Pro-B-Type Natriuretic Peptide > 86076 H Albumin 3.1 L Chemistry Comments Medical Decision Making Findings This 84-year-old man presents with worsening CHF and COPD. His troponin is elevated at 1,474. I have started him on aspirin, Lasix, steroids and nebs. He will require admission. EKG medically necessary in the evaluation of shortness of breath and interpreted by me at the time of patient evaluation. Rhythm is sinus rhythm with a rate of 87. Prolonged ID interval, interventricular conduction delay, LAD Impression: Abnormal EKG. CHEST X-RAY FINDINGS: X-rays were interpreted by me. The lungs show pulmonary vascular congestion. The cardiac and mediastinal contours are within normal limits. IMPRESSION: Pulmonary vascular congestion Departure Disposition: ADMITTED INPATIENT Admitted to Inpatient Unit: to hospitalist Admission Level of Care: PCU with Tele Impression: Primary Impression: NSTEMI (non-ST elevated myocardial infarction) Additional Impressions: Acute exacerbation of CHF (congestive heart failure) COPD exacerbation Condition: Fair Referrals: NO PRIMARY CARE PROVIDER (PCP) Signature Scribe Signature: . Attestation: . AURELIANO AVENDANO MD Dec 19, 2024 10:27
[2024-12-19 10:35] LABS: CREATININE 1.79 MG/DL (0.60-1.10); TOTAL CARBON DIOXIDE 23.3 MMOL/L (24-32); eCRCL 31 ML/MIN; eGFR 36 ML/MIN
[2024-12-19 10:36] LABS: PRO BRAIN NATRIURETIC PEPTIDE > 30000 PG/ML (0-450)
--- NOTE | 2024-12-19 10:51 | RADIOLOGY REPORT ---
CHEST RADIOGRAPH Indication: CP Technique: Single frontal view of the chest was obtained COMPARISON: CT CT CHEST on DOS: 01/30/24, DI CHEST,SINGLE VIEW on DOS: 01/29/24, DI CHEST,SINGLE VIEW on DOS: 11/12/23, DI CHEST,TWO VIEWS on DOS: 07/11/23, DI CHEST,SINGLE VIEW on DOS: 07/07/23 FINDINGS: Lines and Tubes: Left chest pacemaker Lungs: Congestion Pleura: No effusion. No pneumothorax. Cardiomediastinal contours: Unremarkable Bones: Unremarkable IMPRESSION: Increased interstital prominence. This may represent pulmonary vascular congestion and/or viral pneumonia. Clinical correlation advised.
[2024-12-19] MEDS ORDERED: ipratropium/albuterol 3ml nebule NEB SCH (11:12)
[2024-12-19] MEDS: furosemide 10 MG/1 ML 10ml inj IV ONE ×2 (11:23→16:26)
[2024-12-19] MEDS: ipratropium/albuterol 3ml nebule NEB ONE (12:00)
[2024-12-19] MEDS ORDERED: ASPI-1265 PO (12:37)
[2024-12-19] MEDS ORDERED: CARV3.122 PO (12:37)
[2024-12-19] MEDS ORDERED: PANT40TA54 PO (12:44)
[2024-12-19] MEDS ORDERED: FURO-150 PO (12:45)
[2024-12-19] MEDS: MESSAGE TO NURSING IV ONE ×2 (13:21→21:21)
[2024-12-19] MEDS: HEPARIN DRIP-CARDIAC**PHARMACIST-TO-DOSE IV ONE (13:21)
[2024-12-19] MEDS: heparin 10,000 units/1 ML INJ IV ONE (13:26)
[2024-12-19] MEDS: heparin 25,000 UNIT/250ml bag 250 ML IV PRN (13:27)
[2024-12-19 13:34] LABS: APTT 30 SECONDS (22-32)
[2024-12-19] MEDS ORDERED: TAMS-55 PO (13:42)
[2024-12-19] MEDS ORDERED: CYAN500T71 PO (13:42)
[2024-12-19] MEDS ORDERED: TOBR5DRO12 EACHEYE (15:05)
[2024-12-19] MEDS ORDERED: mag hydrox/Alum hydrox/simeth 30ml oral suspension PO PRN (16:25)
[2024-12-19] MEDS ORDERED: magnesium Cl slow-release 64mg tablet PO PRN (16:25)
[2024-12-19] MEDS ORDERED: ondansetron/PF 4mg/2ml inj IV PRN (16:25)
[2024-12-19] MEDS ORDERED: magnesium sulf-water 2g/50mL 50 ML IV PRN (16:25)
[2024-12-19] MEDS ORDERED: magnesium hydroxide 30ml (MOM) UD suspension PO PRN (16:25)
[2024-12-19] MEDS ORDERED: potassium Cl 40MEQ/1/2NS 520ml 520 ML IV PRN (16:25)
[2024-12-19] MEDS ORDERED: potassium Cl 20 mEq SR tablet PO PRN ×2 (16:25)
[2024-12-19] MEDS ORDERED: magnesium sulf-water 4G/100mL 100 ML IV PRN (16:25)
[2024-12-19] MEDS: CefTRIAXone/D5W-Rocephin 1gm 50 ML IV SCH (16:27)
[2024-12-19] MEDS: azithromycin/NS 500mg/250ml 250 ML IV SCH (17:10)
[2024-12-19] MEDS: HYDROcodone/acetaminophen 5mg/325mg tablet PO PRN (17:32)
[2024-12-19] MEDS: ipratropium/albuterol 3ml nebule NEB SCH (18:03)
--- NOTE | 2024-12-19 18:03 | HISTORY AND PHYSICAL-Residence ---
History & Physical Providers to CC Resident Creating Document: DAISY KHANNA, RES CC: STAR CHAVEZ MD ~ History of Present Illness Primary Medical Doctor: Primary services: Dr. Cruz, cardiology services: Dr. Parra Reason for Admit\Complaint: Shortness of breaths History of Present Illness An 84-year-old male with PMH of AFib s/p ppm, HTN, TIA, carotid endarterectomy presented to the ED in view of worsening shortness of breaths over a several days. Patient states that several days ago he was able to walk at least 50 ft without shortness of breaths until yesterday when he was short of breath even at rest. Patient denies use of oxygen at home. Patient endorses paroxysmal nocturnal dyspnea, orthopnea and mild pedal edema. Patient also endorses cough with phlegm which is white yellowish tinged, small in quantity. Patient also endorses chest discomfort, absolutely denies chest pain. Patient denies dizziness, palpitations. Allergies: Coded Allergies: No Known Allergies (Unverified , 12/19/24) Home Medications Home Medications Active Reported Tobrex 0.3% Opth.* (Tobramycin Sulfate) 5 Ml Bottle 1 Drop EACHEYE TID Flomax* (Tamsulosin HCl) 0.4 Mg Cap.sr.24h 1 Cap PO DAILY 30 Days Vitamin B-12* (Cyanocobalamin) 500 Mcg Tablet 1,000 Mg PO DAILY 30 Days Lasix* (Furosemide) 20 Mg Tablet 2 Tab PO BID Pantoprazole Sodium 40 Mg Tablet.dr 40 Mg PO BID Carvedilol 3.125 Mg Tablet 2 Tab PO Q12H 30 Days Aspirin 81 Mg Tab.chew 1 Tab PO DAILY 30 Days Lisinopril 2.5 Mg Tablet 1 Tab PO DAILY 30 Days Rosuvastatin Calcium 40 Mg Tablet 1 Tab PO DAILY Jardiance (Empagliflozin) 10 Mg Tablet 1 Tab PO DAILY 30 Days Ezetimibe 10 Mg Tablet 1 Tab PO DAILY Vitamin D (Cholecalciferol) 1,000 Unit Tablet 3 Tab PO BID Past Medical History Past Medical History TIA Heart failure with reduced ejection fraction CKD stage IIIB COPD HTN Diabetes mellitus type 2 Sleep apnea treated with surgeries Colitis Chronic low back pain History of CAD, [place] Sick sinus syndrome HLD CAD status post carotid endarterectomy Peripheral arterial disease Past Surgical History Surgical History Comment TURP Carotid endarterectomy Surgeries for sleep apnea Pacemaker placement Bilateral stent placement in the lower extremities Family History Family History: (CAD) Coronary arteriosclerosis FATHER, , Age: 74, Cause: COPD exacerbation MOTHER, , Age: 89, Cause: Old age (COPD) Chronic obstructive lung disease FATHER, , Age: 74, Cause: COPD exacerbation FH: cancer MOTHER, , Age: 89, Cause: Old age (at 15 years old) Brother (cancer at age 1515 years old), Onset:10's - 15 Past Social History Social History Comment Smokes one pack of cigarettes for the last 67 years Quit alcohol 39 years ago Smokes marijuana Does not consume illicit drugs [facility]: [facility] 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 Carrera mildly Dr. Phillips (surgeon) GI: Dr. Mcintosh Smoking: Greater than 1 pack/day Alcohol Use: Sober Drug Use: Marijuana Lives with: Family Lives In: Home Occupation: retired ROS ROS Constitutional: No fever, chills, dizziness, weight gain or loss Eyes: No pain, erythema, discharge, blurring of vision ENT: No sore throat, epistaxis, tinnitus Cardiovascular: reports Shortness of breath. Chest pressure, chest discomfort, PND, orthopnea, mild pedal edema no palpitations Respiratory: Shortness of breath and cough present, No hemoptysis Gastrointestinal: Normal appetite. No nausea, vomiting, diarrhea, constipation, hematemesis, abdominal pain, bloating, melena or fresh blood Musculoskeletal: No deformities or pain Integumentary: No change in skin, hair, nails. No swelling, bruising, abrasions Neurologic: No headache, neck pain, numbness or tingling of the extremities, weakness Psychiatric: No delusions, depression, loss of interest in normal activity or change in sleep pattern, hallucinations, suicidal ideations Endocrine: No fatigue, weakness, polydipsia, polyuria, change in appetite, heat or cold intolerance, sweating, dry skin Exam Vitals: Vital Signs Date Time Temp Pulse Resp B/P (MAP) Pulse Ox O2 Delivery O2 Flow Rate FiO2 12/19/24 17:32 16 12/19/24 15:00 97.8 88 165/91 (115) 92 Room Air 12/19/24 15:00 2.0 21 General: General: Alert, awake, oriented, not in acute distress HEENT: PERRLA, no icterus, pallor, lymphadenopathy, carotid bruit, pacemaker present in the left infraclavicular region, dilated veins Respiratory system: Bilateral vesicular breath sounds heard, diffuse wheeze present on inhalation in bilateral lung regions, mild basal Creps present CVS: S1-S2 heard, grade 3/6 holosystolic murmur present in the mitral area,grade 3/6 ejection systolic murmur present in the aortic area GI: Soft, nontender, no organomegaly, no guarding/rigidity, bowel sounds present Neuro: No focal neurological deficits present Extremities: No edema cyanosis clubbing Musculoskeletal: No deformities Skin: Warm and dry Psych: Normal mood and affect Diagnostic Data Last Recorded Lab Results: 12/19/24 1008 12/19/24 1008 Diagnostic Data: Laboratory Tests Test 12/19/24 10:08 Activated Partial Thromboplast Time 30 SECONDS (22-32) Coagulation Comments Advance Care Planning Advanced Care plannin - 30 Minutes (I spent 20 minutes discussing various resuscitative measures and the patient decided to be full code) Additional Plan Assessment: An 84-year-old male with multiple medical comorbidities presented to the ED in view of worsening gradual shortness of breaths associated with chest discomfort, PND and orthopnea. Patient has up trending elevated troponins. Patient is admitted for the evaluation and management of acute hypoxemic respiratory failure secondary to COPD and heart failure exacerbation and NSTEMI. Plan: Acute hypoxemic respiratory failure 2/2 acute COPD exacerbation Acute exacerbation of heart failure with reduced ejection fraction Chest x-ray: Increased interstital prominence. This may represent pulmonary vascular congestion and/or viral pneumonia. Echo in 2023: EF: 35-40% Elevated pro BNP Follow up with repeat echo IV ceftriaxone ( day 1) and IV azithromycin (day 1) Received IV Solu-Medrol 125 mg in the ED, continue IV Solu-Medrol 60 mg b.i.d. Cardiology recommended: * Dobutamine drip at three mics per minute, increased to five mics per minute of the patient is able to tolerate 1 hour of three mics per minute of dobutamine * IV Lasix 40 mg b.i.d. Strict Is&Os, 1.5 L fluid restriction GDM T: Carvedilol 6.25 mg p.o. q.12h, lisinopril 2.5 mg p.o. daily, Jardiance 10 mg p.o. daily, Aldactone 25 mg p.o. per home medications Incentive spirometry and flutter valve NSTEMI Nonobstructive coronary artery disease Up trending troponins EKG: Prolonged MT interval, normal sinus rhythm, ST depressions in two three, V5, V6 Previous catheterization report in 2023: Left main: 20%, left subclavian: 50- 60%, lad: 30%, diagonal 1: 40 %, circumferential with mild irregularities, RCA with 30-40% narrowing Continue heparin drip Received aspirin 325 mg in the ED, continue aspirin 81 mg Follow up with lipid panel, continue atorvastatin 80 mg once daily Cardiology consulted and recommended: Cardiac catheterization in a.m. after discussions with the patient NPO after midnight CKD stage IIIB Baseline creatinine: In the range of 1.62-1.8, EGFR: 36 Continue to monitor BMP HTN Continue to monitor blood pressure readings Medications as per above Sick sinus syndrome s/p ppm in 2021 h/o SVT with bradycardia No acute management currently PAD status post bilateral lower extremity stenting Carotid artery stenosis s/p right endarterectomy History of syncope, TIA Continue aspirin as per above Diabetes mellitus type 2 A1c: 6.6 Low-dose sliding scale insulin HLD Follow up with lipid panel Continue atorvastatin 80 mg and ezetimibe Code status: Full code Diet: Heart healthy, NPO after midnight Anticoagulation: Heparin drip, aspirin Disposition: Admit to PCU, possible cardiac catheterization in a.m. after discussion with the patient Daisy Khanna MD Internal Medicine, PGY 2 Date of Service: Dec 19, 2024 Billing Provider: STAR CHAVEZ MD,DAISY, RES Dec 19, 2024 18:03
[2024-12-19] MEDS ORDERED: dextrose 50%-water 50ml dispensing syringe IV PRN ×2 (18:35)
[2024-12-19] MEDS ORDERED: DEXTROSE 15 GM of carb/4 tabs (each vial/BOTTLE has 4 tablets) PO PRN ×2 (18:35)
[2024-12-19] MEDS ORDERED: glucagon, human recombinant 1mg kit SUBCUT PRN (18:35)
[2024-12-19 19:38] LABS: CREATININE 2.19 MG/DL (0.60-1.10); eCRCL 26 ML/MIN; eGFR 29 ML/MIN
[2024-12-19] MEDS: K and/or MAG REPLACEMENT MC SCH (19:43)
--- NOTE | 2024-12-19 19:49 | CARDIOLOGY REPORT ---
APPROVED REPORT EXAM: Comprehensive 2D, Doppler, and color-flow Echocardiogram. Patient Location: 302 Blood Pressure: 159/92 mmHg Heart Rate: 93 bpm Rhythm: NSR Indications SOB CHF COPD Hypertension Diabetes Pacemaker Troponin 1474 Pro BNP > 30,000 Previous echo 11/13/23 [facility] 35-40% EF ; m MR TR 2D Dimensions LA Diam 5.3 cm IVSd 1.3 (0.7-1.1cm) LVDd 5.7 cm PWd 1.3 (0.7-1.1cm) IVSs 1.7 (0.8-1.2cm) LVDs 4.9 (2.5-4.0cm) Aortic Root(2D) 3.7 cm PWs 1.7 (0.8-1.2cm) LVOT Diameter 2.07 (1.8-2.4cm) LVEF(%) 33.1 (>50%) Ao Asc Diam. 3.08 cm IVC 25.88 mm FS (%) 15.9 % SV 49.0 ml CO 4.9 L/min M-Mode Dimensions MV EPSS 1.3 (<0.5cm) Aortic Valve AoV Peak Richi. 142.7 cm/s AoV VTI 25.3 cm AO Peak GR. 8.1 mmHg AO Mean GR. 4 mmHg LVOT VTI 18.88 cm LVOT Peak Richi. 97.2 cm/s NILESH(VTI)/BSA 2.52 cm2/m2 NILESH (VTI) 2.52 cm2 Mitral Valve MV E Velocity 170.4 cm/s MV Peak Gr. 17 mmHg MV DECEL TIME 128 ms MV PHT 56 ms MVA (PHT) 3.93 cm2 MV VMax 207.9 cm/s TDI Medial E' P. V 6.54 cm/s E/Medial E' 26.1 Tricuspid Valve TR P. Velocity 365 cm/s RAP ESTIMATE 15 mmHg TR Peak Gr. 53 mmHg RVSP 68 mmHg Pulmonary Vein S1 Velocity 38.1 cm/s D2 Velocity 30.2 cm/s PVa Velocity 38.1 cm/s PVa Duration 96 msec LEFT VENTRICLE LV is mildly dilated with mild concentric hypertrophy. Overall systolic function appears to be moderate to severely reduced with multi segmental wall motion abnormalities noted more so in the inferolateral wall. There is [id number] LV systolic dysfunction present. Overall estimated LV ejection fraction is about 35-40% RIGHT VENTRICLE RV appears mildly dilated with normal contractility. RVSP is estimated at 68 mmHG. ATRIA Left atrium is moderately dilated. AORTIC VALVE Trileaflet AV appears sclerotic without stenosis. Trace insufficiency. MITRAL VALVE MV is thickened with mild annular calcification and no stenosis. Moderate mitral regurgitation. TRICUSPID VALVE The tricuspid valve is normal in structure. Moderate tricuspid regurgitation. PULMONIC VALVE The pulmonary valve is normal in structure. Trace to mild pulmonic regurgitation. GREAT VESSELS The aortic root is normal in size. The ascending aorta is normal in size. IVC is dilated and collapses less than 50% with inspiration. PERICARDIUM There is no pericardial effusion. Other Information Study Quality: Adequate Conclusion There is [id number] LV systolic dysfunction present. Overall estimated LV ejection fraction is about 35-40% LV is mildly dilated with mild concentric hypertrophy. Overall systolic function appears to be moderate to severely reduced with multi segmental wall motion abnormalities noted more so in the inferolateral wall. RV appears mildly dilated with normal contractility. RVSP is estimated at 68 mmHG. Trileaflet AV appears sclerotic without stenosis. Trace insufficiency. Moderate mitral regurgitation. Moderate tricuspid regurgitation. Trace to mild pulmonic regurgitation. There is no pericardial effusion.
[2024-12-19] MEDS: docusate sod 100mg capsule PO SCH (20:00)
--- NOTE | 2024-12-19 20:10 | CONSULTATION REPORT - RESIDENT ---
Consult Providers to CC Resident Creating Document: STEVIE RAND RES History of Present Illness Reason for Admit\Complaint: shortness of breath History of Present Illness An 84-year-old male with past medical history of nonobstructive CAD, bradycardia s/p pacemaker, hypertension, DM, DLP, CRISTIAN, abdominal aortic aneurism, PAD, COPD, Right subclavian artery stenosis TIA, carotid endarterectomy came to the hospital with chief complaint of shortness of breath over a several days. Patient states that several days ago he was able to walk at least 50 ft without shortness of breaths until yesterday when he was short of breath even at rest. He states that last night he was not able to sleep due to this symptom. Patient denies use of oxygen at home. Patient endorses paroxysmal nocturnal dyspnea, orthopnea and mild pedal edema. Patient also endorses cough with phlegm which is white yellowish tinged, small in quantity. Patient denies dizziness, palpitations. Allergies: Coded Allergies: No Known Allergies (Unverified , 12/19/24) Home Medications Home Medications Active Reported Tobrex 0.3% Opth.* (Tobramycin Sulfate) 5 Ml Bottle 1 Drop EACHEYE TID Flomax* (Tamsulosin HCl) 0.4 Mg Cap.sr.24h 1 Cap PO DAILY 30 Days Vitamin B-12* (Cyanocobalamin) 500 Mcg Tablet 1,000 Mg PO DAILY 30 Days Lasix* (Furosemide) 20 Mg Tablet 2 Tab PO BID Pantoprazole Sodium 40 Mg Tablet.dr 40 Mg PO BID Carvedilol 3.125 Mg Tablet 2 Tab PO Q12H 30 Days Aspirin 81 Mg Tab.chew 1 Tab PO DAILY 30 Days Lisinopril 2.5 Mg Tablet 1 Tab PO DAILY 30 Days Rosuvastatin Calcium 40 Mg Tablet 1 Tab PO DAILY Jardiance (Empagliflozin) 10 Mg Tablet 1 Tab PO DAILY 30 Days Ezetimibe 10 Mg Tablet 1 Tab PO DAILY Vitamin D (Cholecalciferol) 1,000 Unit Tablet 3 Tab PO BID Past Medical History Past Medical History Nonobstructive CAD. Bradycardia s/p pacemaker. Heart failure with reduced ejection fraction CKD stage IIIB COPD Hypertension Diabetes mellitus type 2 CRISTIAN Colitis Chronic low back pain History of CAD, AR DLP Carotid artery stenosis status post carotid endarterectomy Peripheral arterial disease Right subclavian artery stenosis. Past Surgical History Surgical History Comment Cardiac cath x2 Corrective surgery for sleep apnea. Long dual-chamber pacemaker implant in 03/2022 TURP Carotid endarterectomy Bilateral stent placement in the lower extremities Family History Family History: (CAD) Coronary arteriosclerosis FATHER, , Age: 74, Cause: COPD exacerbation MOTHER, , Age: 89, Cause: Old age (COPD) Chronic obstructive lung disease FATHER, , Age: 74, Cause: COPD exacerbation FH: cancer MOTHER, , Age: 89, Cause: Old age (at 15 years old) Brother (cancer at age 1515 years old), Onset: - Past Social History Social History Comment Smokes one pack of cigarettes for the last 67 years Quit alcohol 39 years ago Smokes marijuana Does not consume illicit drugs Primary care: [facility] Exam Vitals: Vital Signs Date Time Temp Pulse Resp B/P (MAP) Pulse Ox O2 Delivery O2 Flow Rate FiO2 12/19/24 19:23 85 16 Nasal Cannula 2.0 12/19/24 19:18 94 28 12/19/24 19:11 156/82 (106) 12/19/24 15:00 97.8 General: Well alert, well oriented, not confused, not agitated, not in acute distress, well cooperated during the physical. HEENT: Conjunctive are pink, sclerae clear, no icterus, pupil is equal in both sides, reactive to light, no ear discharge, no pharyngeal erythema or an edema. Neck: Supple, no JVD, no lymphadenopathy and thyromegaly, carotid bruit Chest: Equal air entry on both lungs, diffuse wheezing billaterally, bibasilar crakles, presence of pacemaker in the left upper side of the chest. Cardiovascular: S1-S2 regular sinus rhythm and, regular rate, presnece of systolic murmur best heard at the apex. Abdomen: No visible peristalsis, Bowel sounds present on auscultation, soft, nontender, no guarding, no rigidity Extremities: No obvious deformities, no pitting edema bilaterally, capillary refill intact, peripheral pulsations are intact on both sides Central Nervous System: No focal neurological deficits, no motor or sensory weakness in all 4 extremities, could move all 4 extremities, 2+ deep tendon reflexes, negative Babinski. Musculoskeletal: No joint swelling, deformities, inflammations, and no scoliosis and back tenderness Skin: Warm and dry. Diagnostic Data Last Recorded Lab Results: 12/19/24 1008 12/19/24 1913 Diagnostic Data: Laboratory Tests Test 12/19/24 10:08 12/19/24 19:13 Activated Partial Thromboplast Time 30 SECONDS (22-32) APTT (Heparin Protocol) 56 SECONDS (45-60) Coagulation Comments Additional Plan Assessment and plan: 84 years old male patient came to the hospital with chief complaint of shortness of breath. Acute exacerbation of systolic heart failure with reduced ejection fraction of 35% NYHA class 3/AHA Stage C A: The patient came with shortness of breath, orthopnea. Chest x-ray: Increased interstital prominence. This may represent pulmonary vascular congestion and/or viral pneumonia. Echocardiogram: There is qbschiyv-sd-httwpy LV systolic dysfunction present. Overall estimated LV ejection fraction is about 35-40%. LV is mildly dilated with mild concentric hypertrophy. Overall systolic function appears to be moderate to severely reduced with multi segmental wall motion abnormalities noted more so in the inferolateral wall. RV appears mildly dilated with normal contractility. RVSP is estimated at 68 mmHG. Trileaflet AV appears sclerotic without stenosis. Trace insufficiency. Moderate mitral regurgitation. Echo in 2023: EF: 35-40% PBNP: >98984 Plan: Dobutamine drip at 3 mcg/kg/min, increase to 5 mcg/kg/min per minute of the patient is able to tolerate after 1 hour. IV Lasix 40 mg b.i.d. Strict Is&Os. 1.5 L fluid restriction. Daily weight. Carvedilol 6.25 mg p.o. q.12h, lisinopril 2.5 mg p.o. daily, Jardiance 10 mg p.o. daily, Spirinolactone 25 mg p.o. daily. NSTEMI Nonobstructive coronary artery disease A: Troponin levels: [id number]. EKG: Prolonged CA interval, normal sinus rhythm, ST depressions in two three, V5, V6 cardiac catheterization in 05/17/2023: 50-60% narrowing in the proximal left subcllavian artery. Gradient of about 25 mmHg across the lesion. Left main: 20% narrowing, LAD: 30%, diagonal 1: 40 % narrowing, circumferential with mild luminal irregularities, RCA with 30-40% narrowing Plan: Continue heparin drip Aspirin 81 mg Clopidogrel 75 mg daily. Follow up with lipid panel. Atorvastatin 80 mg daily. Other comorbidities: Acute exacerbation of COPD CKD stage IIIB: monitor CMP. HTN on lisinopril 5 mg daily. Sick sinus syndrome s/p ppm in 2021: On telemtry PAD status post bilateral lower extremity stenting Carotid artery stenosis s/p right endarterectomy: Currently on aspirin and Plavix. History of syncope, TIA: Currently on aspirin and Plavix Diabetes mellitus type 2 : A1c: 6.6 on Low-dose sliding scale insulin Code status: Full code DVT prophylaxis: Heparin drip, aspirin Disposition: Continue medical therapy, we will reasses the patient in am. 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 Stevie Lincoln Internal Medicine Resident [facility] Date of Service: Dec 19, 2024 Billing Provider: SHAILESH GILL MD,STEVIE MERCHANT, RES Dec 19, 2024 20:10
[2024-12-19] MEDS: DOBUTamine-DoBUTrex 500mg/D5W 250 ML IV SCH (21:25)
[2024-12-19] MEDS: carvedilol 6.25mg tablet PO SCH (21:30)
[2024-12-19] MEDS: INSULIN LISPRO 100 UNIT/ML INSULN.PEN MULTI-DOSE SQ SCH (22:00)
[2024-12-20] VITALS (26 sets, daily range): BP systolic 96–155; BP diastolic 52–94; PULSE 65–89; RESP 15–22; TEMP 96.9–97.8; O2SAT 65–97
[2024-12-20 01:50] LABS: MEAN PLATELET VOLUME 10.0 FL (7.4-10.4); RED CELL DISTRIBUTION WIDTH 14.1 % (11.5-14.5)
[2024-12-20 02:03] LABS: CHOL/HDL RATIO 2.7 (0.00-4.99); CREATININE 2.12 MG/DL (0.60-1.10); LDL CHOLESTEROL 73 MG/DL (50-100); TOTAL CARBON DIOXIDE 28.0 MMOL/L (24-32); eCRCL 26 ML/MIN; eGFR 30 ML/MIN
[2024-12-20] MEDS: MESSAGE TO NURSING IV ONE ×4 (03:01→22:20)
[2024-12-20] MEDS: aspirin 81mg, enteric-coated 1 TAB TABLET.DR PO SCH (07:58)
[2024-12-20] MEDS: NIFEdipine XL 30mg tablet PO SCH (07:59)
[2024-12-20] MEDS ORDERED: EMPAGLIFLOZIN 10 MG TABLET PO SCH (08:00)
--- NOTE | 2024-12-20 09:29 | PROGRESS NOTE- Residence ---
Progress Note - Resident Providers to CC Resident Creating Document: STEVIE RAND, RES ~ Antibiotic Timeout Antibiotic Ordered?: Yes Subjective The patient has been evaluated at the bedside. Reports improvement of shortness of breath, states that he was able to sleep better last night. Denies chest pain, palpitations. Objective Vital Signs Date Time Temp Pulse Resp B/P (MAP) Pulse Ox O2 Delivery O2 Flow Rate FiO2 12/20/24 07:58 80 12/20/24 07:52 20 Room Air 0.0 12/20/24 07:44 91 21 12/20/24 07:00 140/82 (101) 12/20/24 02:00 97.5 General: Well alert, well oriented, not confused, not agitated, not in acute distress, well cooperated during the physical. HEENT: Conjunctive are pink, sclerae clear, no icterus, pupil is equal in both sides, reactive to light, no ear discharge, no pharyngeal erythema or an edema. Neck: Supple, no JVD, no lymphadenopathy and thyromegaly, carotid bruit Chest: Equal air entry on both lungs, diffuse wheezing billaterally-improved, bibasilar crakles-improved, presence of pacemaker in the left upper side of the chest. Cardiovascular: S1-S2 regular sinus rhythm and, regular rate, presnece of systolic murmur best heard at the apex. Abdomen: No visible peristalsis, Bowel sounds present on auscultation, soft, nontender, no guarding, no rigidity Extremities: No obvious deformities, no pitting edema bilaterally, capillary refill intact, peripheral pulsations are intact on both sides Central Nervous System: No focal neurological deficits, no motor or sensory weakness in all 4 extremities, could move all 4 extremities, 2+ deep tendon reflexes, negative Babinski. Musculoskeletal: No joint swelling, deformities, inflammations, and no scoliosis and back tenderness Skin: Warm and dry. Result Diagram: 12/20/24 0130 12/20/24 0130 Coagulation Studies Laboratory Tests Test 12/19/24 10:08 12/20/24 07:35 Activated Partial Thromboplast Time 30 SECONDS (22-32) APTT (Heparin Protocol) 48 SECONDS (45-60) Coagulation Comments Assessment Assessment 84 years old male patient came to the hospital with chief complaint of shortness of breath. Plan Plan Acute exacerbation of systolic heart failure with reduced ejection fraction of 35% NYHA class 3/AHA Stage C A: The patient came with shortness of breath, orthopnea. Chest x-ray: Increased interstital prominence. This may represent pulmonary vascular congestion and/or viral pneumonia. Echocardiogram: There is xojmwszv-af-xystwt LV systolic dysfunction present. Overall estimated LV ejection fraction is about 35-40%. LV is mildly dilated with mild concentric hypertrophy. Overall systolic function appears to be moderate to severely reduced with multi segmental wall motion abnormalities noted more so in the inferolateral wall. RV appears mildly dilated with normal contractility. RVSP is estimated at 68 mmHG. Trileaflet AV appears sclerotic without stenosis. Trace insufficiency. Moderate mitral regurgitation. Echo in 2023: EF: 35-40% PBNP: >48139 Plan: Dobutamine drip at 5 mcg/kg/min. To be continued until the patient is euvolemic. IV Lasix 40 mg daily. Strict Is&Os. 1.5 L fluid restriction. Daily weight. Carvedilol 6.25 mg p.o. q.12h, lisinopril 2.5 mg p.o. daily, Jardiance 10 mg p.o. daily, Spirinolactone 25 mg p.o. daily. NSTEMI Nonobstructive coronary artery disease A: Troponin levels: [id number]. EKG: Prolonged WI interval, normal sinus rhythm, ST depressions in two three, V5, V6 cardiac catheterization in 05/17/2023: 50-60% narrowing in the proximal left subcllavian artery. Gradient of about 25 mmHg across the lesion. Left main: 20% narrowing, LAD: 30%, diagonal 1: 40 % narrowing, circumferential with mild luminal irregularities, RCA with 30-40% narrowing Plan: Options discussed with the patient, the patient decided to not proceed with coronary angiogram, he opted for medical therapy. Continue heparin drip to be completed 48 hours. Aspirin 81 mg Clopidogrel 75 mg daily. Atorvastatin 80 mg daily. LDL goal less than 55. Other comorbidities: Acute exacerbation of COPD CKD stage IIIB: monitor CMP. HTN on lisinopril 5 mg daily. Sick sinus syndrome s/p ppm in 2021: On telemtry PAD status post bilateral lower extremity stenting Carotid artery stenosis s/p right endarterectomy: Currently on aspirin and Plavix. History of syncope, TIA: Currently on aspirin and Plavix Diabetes mellitus type 2 : A1c: 6.6 on Low-dose sliding scale insulin Code status: Full code DVT prophylaxis: Heparin drip, aspirin Disposition: Options discussed with the patient, the patient decided to not proceed with coronary angiogram, he opted for medical therapy. Stevie Lincoln Internal Medicine Resident [facility] Date of Service: Dec 20, 2024 Billing Provider: SHAILESH GILL MD,STEVIE MERCHANT, RES Dec 20, 2024 09:29
--- NOTE | 2024-12-20 09:44 | ELECTROCARDIOGRAPH REPORT ---
[facility] Test Date: 2024-12-20 Test Time: 09:41:44 Pat Name: JARVIS QUIGLEY Department: [facility] 3S Patient ID: [facility]-[id number] Room: [place] [id number] A Gender: M [employer] Supervisor: KAVITA : 1940 Requested By: CONSUELO DALE Order Number: [id number] Reading MD: Dr. Sharan Bautista Measurements Intervals [place] Rate: 80 P: 24 PA: 240 QRS: -22 QRSD: 117 T: 180 QT: 441 QTc: 509 Interpretive Statements Atrial-paced complexes Prolonged PA interval Probable left atrial enlargement LVH with IVCD and secondary repol abnrm Electronically Signed On 12-20-2024 9:51:[address] Sharan Bautista Please click the below link to view image of tracing.
[2024-12-20] MEDS: EMPAGLIFLOZIN 10 MG TABLET PO SCH (10:07)
[2024-12-20] MEDS ORDERED: glucagon, human recombinant 1mg kit SUBCUT PRN (12:00)
[2024-12-20] MEDS ORDERED: DEXTROSE 15 GM of carb/4 tabs (each vial/BOTTLE has 4 tablets) PO PRN ×2 (12:00)
[2024-12-20] MEDS ORDERED: dextrose 50%-water 50ml dispensing syringe IV PRN ×2 (12:00)
[2024-12-20] MEDS: heparin 10,000 units/1 ML INJ IV PRN (15:13)
[2024-12-20] MEDS ORDERED: MESSAGE TO NURSING IV ONE (15:20)
[2024-12-20 16:17] LABS: LEUKOCYTE ESTERASE ,URINE NEGATIVE (Neg); NITRITES, URINE NEGATIVE (Neg); OCCULT BLOOD,URINE TRACE-INTACT (Neg)
[2024-12-20 16:26] LABS: UA COLLECTION TYPE VOIDED
[2024-12-20 16:29] LABS: SQUAMOUS EPITHELIAL CELL,UR NONE SEEN /LPF (FEW)
--- NOTE | 2024-12-20 17:35 | PROGRESS NOTE- Residence ---
Progress Note - Resident Providers to CC Resident Creating Document: DAISY GRIFFITHS RES CC: STAR CHAVEZ MD ~ Antibiotic Timeout Antibiotic Ordered?: Yes Subjective Patient is seen and examined at bedside. Patient states that his shortness of breath is much improved, denies chest discomfort pain or palpitations or dizziness. Patient had refused cardiac catheterization and would like to proceed with medical therapy. Objective Vital Signs Date Time Temp Pulse Resp B/P (MAP) Pulse Ox O2 Delivery O2 Flow Rate FiO2 12/20/24 17:20 85 118/62 (80) 81 12/20/24 17:00 18 12/20/24 15:00 96.9 Room Air 12/20/24 12:09 0.0 21 Result Diagram: 12/20/24 0130 12/20/24 0130 General: Alert, awake, oriented, not in acute distress HEENT: PERRLA, no icterus, pallor, lymphadenopathy, carotid bruit, pacemaker present in the left infraclavicular region, dilated veins, bilateral carotid bruit with right moderate left present. Respiratory system: Bilateral vesicular breath sounds heard, diffuse wheeze present on inhalation in bilateral lung regions, mild basal Creps present (improving) CVS: S1-S2 heard, grade 3/6 holosystolic murmur present in the mitral area,grade 3/6 ejection systolic murmur present in the aortic area GI: Soft, nontender, no organomegaly, no guarding/rigidity, bowel sounds present Neuro: No focal neurological deficits present Extremities: No edema cyanosis clubbing Musculoskeletal: No deformities Skin: Warm and dry Coagulation Studies Laboratory Tests Test 12/19/24 10:08 12/20/24 14:08 Activated Partial Thromboplast Time 30 SECONDS (22-32) APTT (Heparin Protocol) 39 SECONDS (45-60) L Coagulation Comments Assessment Assessment An 84-year-old male with multiple medical comorbidities presented to the ED in view of worsening gradual shortness of breaths associated with chest discomfort, PND and orthopnea. Patient has up trending elevated troponins. Patient is admitted for the evaluation and management of acute hypoxemic respiratory failure secondary to COPD and heart failure exacerbation and NSTEMI. Plan Plan Acute hypoxemic respiratory failure 2/2 acute COPD exacerbation Acute exacerbation of heart failure with reduced ejection fraction Repeat echo:Overall systolic function appears to be moderate to severely reduced with multi segmental wall motion abnormalities noted more so in the inferolateral wall. There is nwzgnicl-zr-[id number] LV systolic dysfunction present. Ejection fraction: 35-40%. RVSP: 68 mmHg. IV ceftriaxone ( day 2/5) and IV azithromycin (day 2/3) Continue IV Solu-Medrol 60 mg b.i.d. Cardiology recommended: * Continue dobutamine drip at five mics per minute until he is euvolemic. Management per Cardiology * IV Lasix 40 mg b.i.d. Strict Is&Os, 1.5 L fluid restriction GDM T: Carvedilol 6.25 mg p.o. q.12h, lisinopril 2.5 mg p.o. daily, Jardiance 10 mg p.o. daily, Aldactone 25 mg p.o. 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 Baseline creatinine: In the range of 1.62-1.8, EGFR: 36 Continue to monitor BMP HTN Continue to monitor blood pressure readings Medications as per above Sick sinus syndrome s/p ppm in 2021 h/o SVT with bradycardia No acute management currently PAD status post bilateral lower extremity stenting Carotid artery stenosis s/p right endarterectomy History of syncope, TIA Continue aspirin as per above Diabetes mellitus type 2 A1c: 6.6 Low-dose sliding scale insulin HLD Continue atorvastatin 80 mg and ezetimibe Code status: Full code Diet: Heart healthy Anticoagulation: Heparin drip, aspirin Disposition: Continue care in PCU, possible discharge in a day or two Daisy Griffiths MD Internal Medicine, PGY 2 Date of Service: Dec 20, 2024 Billing Provider: STAR CHAVEZ MD, SIVA, RES Dec 20, 2024 17:35
[2024-12-21] VITALS (20 sets, daily range): BP systolic 107–136; BP diastolic 49–75; PULSE 52–100; RESP 13–25; TEMP 97.1–97.8; O2SAT 92–99
[2024-12-21 03:14] LABS: MEAN PLATELET VOLUME 10.4 FL (7.4-10.4); RED CELL DISTRIBUTION WIDTH 13.9 % (11.5-14.5)
[2024-12-21 03:24] LABS: CREATININE 2.34 MG/DL (0.60-1.10); TOTAL CARBON DIOXIDE 26.8 MMOL/L (24-32); eCRCL 24 ML/MIN; eGFR 27 ML/MIN
[2024-12-21] MEDS: MESSAGE TO NURSING IV ONE ×2 (04:17→10:28)
--- NOTE | 2024-12-21 10:08 | PROGRESS NOTE- Residence ---
Progress Note - Resident Providers to CC Resident Creating Document: STEVIE RAND, RES ~ Antibiotic Timeout Antibiotic Ordered?: Yes Subjective The patient has been evaluated at the bedside. Shortness of breath resolved. Currently denies any chest pain, palpitations, SOB. Objective Vital Signs Date Time Temp Pulse Resp B/P (MAP) Pulse Ox O2 Delivery O2 Flow Rate FiO2 12/21/24 07:33 52 16 Room Air 0.0 12/21/24 07:28 93 21 12/21/24 03:00 112/65 (81) 12/21/24 02:00 97.1 Physical exam: General: Well alert, well oriented, not confused, not agitated, not in acute distress, well cooperated during the physical. HEENT: Conjunctive are pink, sclerae clear, no icterus, pupil is equal in both sides, reactive to light, no ear discharge, no pharyngeal erythema or an edema. Neck: Supple, no JVD, no lymphadenopathy and thyromegaly, carotid bruit Chest: Equal air entry on both lungs, diffuse wheezing billaterally-improved, bibasilar crakles-improved, presence of pacemaker in the left upper side of the chest. Cardiovascular: S1-S2 regular sinus rhythm and, regular rate, presence of systolic murmur best heard at the apex. Abdomen: No visible peristalsis, Bowel sounds present on auscultation, soft, nontender, no guarding, no rigidity Extremities: No obvious deformities, no pitting edema bilaterally, capillary refill intact, peripheral pulsations are intact on both sides Central Nervous System: No focal neurological deficits, no motor or sensory weakness in all 4 extremities, could move all 4 extremities, 2+ deep tendon reflexes, negative Babinski. Musculoskeletal: No joint swelling, deformities, inflammations, and no scoliosis and back tenderness Skin: Warm and dry. Result Diagram: 12/21/24 0304 12/21/24 0304 Coagulation Studies Laboratory Tests Test 12/19/24 10:08 12/21/24 08:48 Activated Partial Thromboplast Time 30 SECONDS (22-32) APTT (Heparin Protocol) 52 SECONDS (45-60) Coagulation Comments Assessment Assessment 84 years old male patient came to the hospital with chief complaint of shortness of breath. Plan Plan Acute exacerbation of systolic heart failure with reduced ejection fraction of 35% NYHA class 3/AHA Stage C A: The patient came with shortness of breath, orthopnea. Chest x-ray: Increased interstital prominence. This may represent pulmonary vascular congestion and/or viral pneumonia. Echocardiogram: There is epipcvmj-ty-mikywd LV systolic dysfunction present. Overall estimated LV ejection fraction is about 35-40%. LV is mildly dilated with mild concentric hypertrophy. Overall systolic function appears to be moderate to severely reduced with multi segmental wall motion abnormalities noted more so in the inferolateral wall. RV appears mildly dilated with normal contractility. RVSP is estimated at 68 mmHG. Trileaflet AV appears sclerotic without stenosis. Trace insufficiency. Moderate mitral regurgitation. Echo in 2023: EF: 35-40% PBNP: >23275 Plan: Follow-up BMP and proBNP in the morning. Decreasing Dobutamine drip to 2.5 mcg/kg/min. To be continued until the patient is euvolemic. Stopping Lasix due to kidney function. Balance -2450. Strict Is&Os. 1.5 L fluid restriction. Daily weight. Carvedilol 6.25 mg p.o. q.12h, lisinopril 2.5 mg p.o. daily, Jardiance 10 mg p.o. daily, Spirinolactone 25 mg p.o. daily. NSTEMI Nonobstructive coronary artery disease A: Troponin levels: [id number]. EKG: Prolonged [place] interval, normal sinus rhythm, ST depressions in two three, V5, V6 cardiac catheterization in 05/17/2023: 50-60% narrowing in the proximal left subcllavian artery. Gradient of about 25 mmHg across the lesion. Left main: 20% narrowing, LAD: 30%, diagonal 1: 40 % narrowing, circumferential with mild luminal irregularities, RCA with 30-40% narrowing Plan: Options discussed with the patient, the patient decided to not proceed with coronary angiogram, he opted for medical therapy. Heparin drip to be stopped today. Aspirin 81 mg Clopidogrel 75 mg daily. Atorvastatin 80 mg daily. LDL goal less than 55. Other comorbidities: Acute exacerbation of COPD Current history of smoking CKD stage IIIB: monitor CMP. HTN on lisinopril 5 mg daily. Sick sinus syndrome s/p ppm in 2021: On telemtry PAD status post bilateral lower extremity stenting Carotid artery stenosis s/p right endarterectomy: Currently on aspirin and Plavix. History of syncope, TIA: Currently on aspirin and Plavix Diabetes mellitus type 2 : A1c: 6.6 on Low-dose sliding scale insulin Code status: Full code DVT prophylaxis: Heparin drip, aspirin Disposition: Continue medical therapy. Stopping diuretics due to kidney function. Decreasing dobutamine drip. Stevie Lincoln Internal Medicine Resident [facility] Patient seen and examined by Dr. Marcella VARGHESE. Patient diuresed well with dobutamine. Hold diuresis in view of elevated BUN creatinine. Continue dobutamine. Date of Service: Dec 21, 2024 Billing Provider: SHAILESH GILL MD, FRANCO LUIS, RES Dec 21, 2024 10:08 SHAILESH GILL MD Dec 21, 2024 17:13
--- NOTE | 2024-12-21 13:44 | CONSULTATION REPORT ---
Consult Providers to CC ~ History of Present Illness Reason for Admit\Complaint: Shortness of breath History of Present Illness he reports worsening SOB for some time now, history of CHF, no NSTEMI elevated troponin, he refused cath, he wants medical management, he has known CKD Stage G3b, he has some elevation of his creatinine from baseline level, most likely cardiorenal physiology, he is receiving Dobutamine now at 5 ug Allergies: Coded Allergies: No Known Allergies (Unverified , 12/19/24) Home Medications Home Medications Active Reported Tobrex 0.3% Opth.* (Tobramycin Sulfate) 5 Ml Bottle 1 Drop EACHEYE TID Flomax* (Tamsulosin HCl) 0.4 Mg Cap.sr.24h 1 Cap PO DAILY 30 Days Vitamin B-12* (Cyanocobalamin) 500 Mcg Tablet 1,000 Mg PO DAILY 30 Days Lasix* (Furosemide) 20 Mg Tablet 2 Tab PO BID Pantoprazole Sodium 40 Mg Tablet.dr 40 Mg PO BID Carvedilol 3.125 Mg Tablet 2 Tab PO Q12H 30 Days Aspirin 81 Mg Tab.chew 1 Tab PO DAILY 30 Days Lisinopril 2.5 Mg Tablet 1 Tab PO DAILY 30 Days Rosuvastatin Calcium 40 Mg Tablet 1 Tab PO DAILY Jardiance (Empagliflozin) 10 Mg Tablet 1 Tab PO DAILY 30 Days Ezetimibe 10 Mg Tablet 1 Tab PO DAILY Vitamin D (Cholecalciferol) 1,000 Unit Tablet 3 Tab PO BID Past Medical History Past Medical History Reviewed Past Surgical History Surgical History Comment Reviewed Family History Family History: (CAD) Coronary arteriosclerosis FATHER, , Age: 74, Cause: COPD exacerbation MOTHER, , Age: 89, Cause: Old age (COPD) Chronic obstructive lung disease FATHER, , Age: 74, Cause: COPD exacerbation FH: cancer MOTHER, , Age: 89, Cause: Old age (at 15 years old) Brother (cancer at age 1515 years old), Onset:10's - 15 Past Social History Social History Comment Reviewed ROS ROS All other systems non-contributory Exam Vitals: Vital Signs Date Time Temp Pulse Resp B/P (MAP) Pulse Ox O2 Delivery O2 Flow Rate FiO2 12/21/24 11:27 76 16 Room Air 0.0 12/21/24 11:21 96 21 12/21/24 03:00 112/65 (81) 12/21/24 02:00 97.1 Alert RRR w/o murmur, no JVD CTAB, no wheezes +BS, NT No edema Diagnostic Data Last Recorded Lab Results: 12/21/24 0304 12/21/24 0304 Diagnostic Data: I & O 12/21/24 07:00 Intake Total 800 ml Output Total 2225 ml Balance -1425 ml Intake Oral 800 ml Output Urine Total 2225 ml # Voids 1 Laboratory Tests Test 12/19/24 10:08 12/21/24 08:48 Activated Partial Thromboplast Time 30 SECONDS (22-32) APTT (Heparin Protocol) 52 SECONDS (45-60) Coagulation Comments Problems: (1) Acute kidney injury superimposed on stage 3b chronic kidney disease Assessment & Plan: Most consistent with pre-renal cardiorenal physiology, I agree with Dobutamine today, monitor daily for continued need, recommend IV Furosemide 40 mg one dose today, monitor daily for continued need (2) NSTEMI (non-ST elevated myocardial infarction) Status: Acute Assessment & Plan: Patient opted for medical management, stopped heparin today, now BB, Plavix, Statin (3) Acute on chronic systolic heart failure Status: Acute Assessment & Plan: Would recommend guideline directed therapy when renal function improves, monitor for hyperkalemia, could use Lokelma if necessary OKSANA HIGGINBOTHAM III, DO Dec 21, 2024 13:44
--- NOTE | 2024-12-21 17:29 | PROGRESS NOTE- Residence ---
Progress Note - Resident Providers to CC Resident Creating Document: DAISY GRIFFITHS RES CC: STAR CHAVEZ MD ~ Antibiotic Timeout Antibiotic Ordered?: Yes Subjective The patient has been evaluated at the bedside. Patient does not have any complaints. Nephrology has been consulted in view of up trending creatinine. Discussions with Cardiology has been held in view of worsening creatinine, negative fluid balance of 2000 mL. Cardiology recommended to hold Lasix, decreased dobutamine drip to 2.5 mics per kg per minute. Objective Vital Signs Date Time Temp Pulse Resp B/P (MAP) Pulse Ox O2 Delivery O2 Flow Rate FiO2 12/21/24 15:10 87 17 Room Air 0.0 12/21/24 15:05 92 21 12/21/24 06:00 97.2 121/49 (73) Result Diagram: 12/21/24 0304 12/21/24 0304 General: Alert, awake, oriented, not in acute distress HEENT: PERRLA, no icterus, pallor, lymphadenopathy, carotid bruit, pacemaker present in the left infraclavicular region, dilated veins Respiratory system: Bilateral vesicular breath sounds heard, diffuse wheeze present on inhalation in bilateral lung regions, mild basal Creps present (resolved) CVS: S1-S2 heard, grade 3/6 holosystolic murmur present in the mitral area, grade 3/6 ejection systolic murmur present in the aortic area GI: Soft, nontender, no organomegaly, no guarding/rigidity, bowel sounds present Neuro: No focal neurological deficits present Extremities: No edema cyanosis clubbing Musculoskeletal: No deformities Skin: Warm and dry Coagulation Studies Laboratory Tests Test 12/19/24 10:08 12/21/24 15:50 Activated Partial Thromboplast Time 30 SECONDS (22-32) APTT (Heparin Protocol) 26 SECONDS (45-60) L Coagulation Comments Assessment Assessment An 84-year-old male with multiple medical comorbidities presented to the ED in view of worsening gradual shortness of breaths associated with chest discomfort, PND and orthopnea. Patient has up trending elevated troponins. Patient is admitted for the evaluation and management of acute hypoxemic respiratory failure secondary to COPD and heart failure exacerbation and NSTEMI. Plan Plan Acute hypoxemic respiratory failure 2/2 acute COPD exacerbation Acute exacerbation of heart failure with reduced ejection fraction IV ceftriaxone ( day 3/5) and IV azithromycin (day 3/3) Continue IV Solu-Medrol 60 mg b.i.d. Cardiology recommended: * Downgraded dobutamine drip to 2.5 mics per minute until he is euvolemic. Management per Cardiology * Dced IV Lasix 40 mg b.i.d in view of kidney function Strict Is&Os, 1.5 L fluid restriction GDM T: Carvedilol 12.5 mg p.o. q.12h, held lisinopril 2.5 mg p.o. daily, Jardiance 10 mg p.o. daily, Aldactone 25 mg p.o. 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 Lasix has been complete discontinued after discussions with Cardiology in view of adequate diuresis Continue to monitor BMP HTN Continue to monitor blood pressure readings Carvedilol dose has been doubled, as Genaro/ARB can not be used in view of worsening kidney function, amlodipine can not be used in view of heart failure Medications as per above Sick sinus syndrome s/p ppm in 2021 h/o SVT with bradycardia No acute management currently PAD status post bilateral lower extremity stenting Carotid artery stenosis s/p right endarterectomy History of syncope, TIA Continue aspirin as per above Diabetes mellitus type 2 A1c: 6.6 Low-dose sliding scale insulin, Lantus 10 units subcutaneous HS HLD LDL: 73 Continue atorvastatin 80 mg and ezetimibe Code status: Full code Diet: Heart healthy Anticoagulation: Aspirin DVT prophylaxis: SCD Disposition: Continue care in PCU, possible discharge in a day or two Daisy Griffiths MD Internal Medicine, PGY 2 Date of Service: Dec 21, 2024 Billing Provider: STAR CHAVEZ MD, SIVA, RES Dec 21, 2024 17:29
[2024-12-21] MEDS: carvedilol 6.25mg tablet PO SCH (20:11)
[2024-12-21] MEDS: insulin glargine (Lantus) pen - multi-dose SQ SCH (21:07)
[2024-12-22] VITALS (25 sets, daily range): BP systolic 98–157; BP diastolic 59–88; PULSE 61–87; RESP 14–21; TEMP 97.4–98.2; O2SAT 94–98
[2024-12-22 06:42] LABS: MEAN PLATELET VOLUME 10.2 FL (7.4-10.4); RED CELL DISTRIBUTION WIDTH 13.9 % (11.5-14.5)
[2024-12-22 07:06] LABS: CREATININE 2.54 MG/DL (0.60-1.10); TOTAL CARBON DIOXIDE 23.8 MMOL/L (24-32); eCRCL 22 ML/MIN; eGFR 24 ML/MIN
--- NOTE | 2024-12-22 08:51 | PROGRESS NOTE ---
Progress Note Dictate Providers to CC ~ Progress Note: notes completed on 12/23, was started on 12/22 Central Line/PICC still needed: No Morales Indications Met/Not Met: F/C Indications Not Met Antibiotic Ordered?: N/A Subjective Subjective continues to have excellent diuresis. feels better. euvolemic. Objective Vitals Vital Signs Date Time Temp Pulse Resp B/P (MAP) Pulse Ox O2 Delivery O2 Flow Rate FiO2 12/23/24 09:48 70 12/23/24 08:06 16 Room Air 0.0 12/23/24 08:01 98 21 12/23/24 02:00 97.4 140/66 (90) Lab Results: 12/23/24 0543 12/23/24 0543 Objective Vital Signs: As above General: Normal body habitus, no acute distress. Skin: No rashes, lumps, ulcers, blisters, purpura or petechiae HEENT: Anicteric sclera, ASTRID Neck: Supple and nontender without enlargement of the thyroid, or lymphadenopathy. Chest: Normal size and shape, no tenderness, CTA bilaterally Heart: Regular. No jugular venous distention, S1 and S2 heard , no gallop Abdomen: Soft and non tender no organomegaly,BS+ Extremities: No pedal edema Neuro: Nonfocal. Coagulation Studies Laboratory Tests Test 12/19/24 10:08 12/21/24 15:50 Activated Partial Thromboplast Time 30 SECONDS (22-32) APTT (Heparin Protocol) 26 SECONDS (45-60) L Coagulation Comments Advance Care Planning Advanced Care plannin - 30 Minutes Problem\Assessment\Plan Problems/Diagnosis: (1) Acute kidney injury superimposed on stage 3b chronic kidney disease Assessment & Plan: Most consistent with pre-renal cardiorenal physiology, I agree with Dobutamine today, monitor daily for continued need, recommend IV Furosemide 40 mg one dose today, monitor daily for continued need (2) NSTEMI (non-ST elevated myocardial infarction) Assessment & Plan: Patient opted for medical management, stopped heparin today, now BB, Plavix, Statin (3) Acute on chronic systolic heart failure Assessment & Plan: Would recommend guideline directed therapy when renal function improves, CAS LUCIANO MD Dec 22, 2024 08:50
[2024-12-22] MEDS ORDERED: ipratropium/albuterol 3ml nebule NEB PRN (11:50)
[2024-12-22 12:11] LABS: PRO BRAIN NATRIURETIC PEPTIDE 4351 PG/ML (0-450)
[2024-12-22] MEDS: PERFLUTREN PROTEIN-A MICROSPHR (Optison) 0.22 MG/ML 3ML VIAL IV ONE (12:21)
--- NOTE | 2024-12-22 12:50 | RADIOLOGY REPORT ---
CLINICAL HISTORY: monitor changes TECHNIQUE: Single view of the chest was obtained. COMPARISON: DI CHEST,SINGLE VIEW on DOS: 12/19/24, CT CT CHEST on DOS: 01/30/24, DI CHEST,SINGLE VIEW on DOS: 01/29/24, DI CHEST,SINGLE VIEW on DOS: 11/12/23, DI CHEST,TWO VIEWS on DOS: 07/11/23 FINDINGS: There is a dual lead left chest wall pacing device. The heart size is normal and pulmonary vascular congestion has resolved. There is a right basilar opacity. IMPRESSION: Resolved pulmonary vascular congestion. Right basilar opacity, favor atelectasis.
[2024-12-22] MEDS: carvedilol 6.25mg tablet PO ONE (13:03)
--- NOTE | 2024-12-22 13:45 | PROGRESS NOTE ---
Progress Note Cardiology Providers to CC ~ Subjective Subjective Patient seen and examined this afternoon. Overall patient is doing well. Noted input from Dr. Valdez. Objective Result Diagram: 12/22/2461112/22/24611 Objective General: Normal body habitus, no acute distress, HEENT: Sclerae clear, PERRL, gums without lesions or bleeding, oropharynx clear without erythema or exudate. Neck: Supple without enlargement of the thyroid, or lymphadenopathy, Chest: Normal size and shape, no tenderness, nonlabored breathing, Breath sounds clear to auscultation. Heart: Regular in rate and rhythm, S1 and S2 normal, no S3-S4 or murmurs. Abdomen: Soft, nontender, no organomegaly, bowel sounds present. Extremities: No edema cyanosis or clubbing. Coagulation Studies Laboratory Tests Test 12/19/24 10:08 12/21/24 15:50 Activated Partial Thromboplast Time 30 SECONDS (22-32) APTT (Heparin Protocol) 26 SECONDS (45-60) L Coagulation Comments Problem\Assessment\Plan Additional Plan 1. 84 years old male patient came to the hospital with Chronic systolic heart failure with reduced ejection fraction of 35% NYHA class 3/AHA Stage C A: The patient came with shortness of breath, orthopnea. Chest x-ray: Increased interstital prominence. This may represent pulmonary vascular congestion and/or viral pneumonia. Echocardiogram: There is [id number] LV systolic dysfunction present. Overall estimated LV ejection fraction is about 35-40%. LV is mildly dilated with mild concentric hypertrophy. Overall systolic function appears to be moderate to severely reduced with multi segmental wall motion abnormalities noted more so in the inferolateral wall. RV appears mildly dilated with normal contractility. RVSP is estimated at 68 mmHG. Trileaflet AV appears sclerotic without stenosis. Trace insufficiency. Moderate mitral regurgitation. Strict Is&Os. 1.5 L fluid restriction. Daily weight. Carvedilol 6.25 mg p.o. q.12h, lisinopril 2.5 mg p.o. daily, Jardiance 10 mg p.o. daily, Spirinolactone 25 mg p.o. daily. Diuretics per Dr. Valdez. 2. NSTEMI Nonobstructive coronary artery disease A: Troponin levels: [id number]. Since patient had coronary angiography last year declines any further workup. Wants continued medical therapy. 3., hypertension hyperlipidemia counseled on coronary risk factor modification. 4. Other comorbidities: Prior history of chronic smoking, continues to smoke, COPD Current history of smoking CKD stage IIIB: monitor CMP. HTN on lisinopril 5 mg daily. Sick sinus syndrome s/p ppm in 2021: On telemtry PAD status post bilateral lower extremity stenting Carotid artery stenosis s/p right endarterectomy: Currently on aspirin and Plavix. History of syncope, TIA: Currently on aspirin and Plavix Diabetes mellitus type 2 : A1c: 6.6 on Low-dose sliding scale insulin SHAILESH GILL MD Dec 22, 2024 13:45
[2024-12-22] MEDS: budesonide 0.5mg/2ml UD nebule IH SCH (20:00)
--- NOTE | 2024-12-22 20:17 | PROGRESS NOTE- Residence ---
Progress Note - Resident Providers to CC Resident Creating Document: SHREYA CARMONA RES ~ Antibiotic Timeout Antibiotic Ordered?: No Subjective Patient seen and examined today. He is comfortably resting in the bed. No new complaints. Telemetry showed eight beats of nonsustained V-tach last night. Patient remained asymptomatic. Stated that he uses two inhalers at home- albuterol and another inhaler (does not remember the name). Continues to smoke. Educated that he needs to take Coreg and mentioned that he only wants to take 3.125 mg p.o. b.i.d. despite clearly explaining that we need to go up on the dosage as he had an episode of nonsustained V-tach. But he does not want an increased dose of Coreg. Objective Vital Signs Date Time Temp Pulse Resp B/P (MAP) Pulse Ox O2 Delivery O2 Flow Rate FiO2 12/22/24 17:00 74 21 98/64 (75) 12/22/24 15:00 98.2 94 Room Air 12/22/24 07:14 0 21 Result Diagram: 12/22/24 0612 12/22/24 0612 General: Alert and oriented x 4 HEENT: Normocephalic and atraumatic. Pupils equal round and reactive to light and accommodation. Extraocular movements intact. Oral and nasal mucosa moist Neck: Trachea is in midline. No masses or JVD. Bilateral carotid bruit present Lungs: Bilateral normal breath sounds. Bilateral mild basal crackles present. No rhonchi or wheezes Heart: Regular rate and rhythm. S1-S2 normal. No rubs or murmurs Abdomen: Soft, nontender and nondistended. Bowel sounds present DIRECTOR INDEX: No gross sensory or motor abnormalities Extremities: No cyanosis, clubbing or edema Skin: Warm and dry Coagulation Studies Laboratory Tests Test 12/19/24 10:08 12/21/24 15:50 Activated Partial Thromboplast Time 30 SECONDS (22-32) APTT (Heparin Protocol) 26 SECONDS (45-60) L Coagulation Comments Assessment Assessment 84 years old male patient came to the hospital with chief complaint of shortness of breath. Plan Plan Acute hypoxemic respiratory failure 2/2 acute COPD exacerbation Acute exacerbation of heart failure with reduced ejection fraction IV ceftriaxone ( day 4/5) and IV azithromycin (day 3/3) Continue IV Solu-Medrol 60 mg b.i.d. Will taper steroids tomorrow Cardiology recommended: * Dobutamine drip-5 mcg/kg/minute. ProBNP significantly reduced compared to day one. Chest x-ray showed improved vascular congestion * Received Lasix 40 mg IV once yesterday. Not on Lasix today Strict Is&Os, increase fluid restriction to 2 L from 1.5 L. nurse severe GDM T: Carvedilol 3.125 mg p.o. q.12h, held ACEI/arbs and Jardiance in view of ongoing TRISTIAN. Started spironolactone 12.5 mg p.o. b.i.d. Incentive spirometry and flutter valve Started Pulmicort 0.5 mg p.o. b.i.d. Continue DuoNeb q.4h p.r.n. Strongly recommended to quit tobacco NSTEMI Nonobstructive coronary artery disease Nonsustained V-tach Previous catheterization report in 2023: Left main: 20%, left subclavian: 50- 60%, lad: 30%, diagonal 1: 40 %, circumferential with mild irregularities, RCA with 30-40% narrowing Patient refused cardiac catheterization at this time and would like to proceed with medical therapy Completed 48 hours of heparin drip Continue aspirin 81 mg and Plavix 75 mg LDL goal: Less than 55, LDL: 73, continue atorvastatin 80 mg once daily and ezetimibe 10 mg p.o. 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 b.i.d.. . Patient adamantly refusing a value dose of Coreg Maintain potassium more than four and magnesium more than two PAD status post bilateral lower extremity stenting Carotid artery stenosis s/p right endarterectomy about 5-6 years back History of syncope, TIA Continue aspirin 81 mg p.o. daily and Plavix 75 mg p.o. daily as per Cardiology recommendations Diabetes mellitus type 2 A1c: 6.6 Low-dose sliding scale insulin, Lantus 10 units subcutaneous HS HLD LDL: 73 Continue atorvastatin 80 mg and ezetimibe 10 mg p.o. daily Tobacco abuse Strongly recommended to quit tobacco Code status: Full code Diet: Heart healthy DVT prophylaxis: Heparin 5000 units subcutaneous daily Disposition: Continue to monitor BMP. Awaiting Nephrology recommendations. Hold Lasix. Recommend BMP 2-5 weeks after discharge. Discharge on inhalers. Taper dobutamine tomorrow. Strongly recommend to quit tobacco abuse Shreya Carmona MD Internal Medicine Resident, PGY 3 Date of Service: Dec 22, 2024 Billing Provider: STAR CHAVEZ MD,SHREYA RES Dec 22, 2024 20:16
[2024-12-23] VITALS (18 sets, daily range): BP systolic 118–160; BP diastolic 52–111; PULSE 60–88; RESP 12–29; TEMP 96.9–98; O2SAT 94–98
[2024-12-23 06:20] LABS: MEAN PLATELET VOLUME 10.6 FL (7.4-10.4); RED CELL DISTRIBUTION WIDTH 14.3 % (11.5-14.5)
[2024-12-23 06:41] LABS: CREATININE 1.97 MG/DL (0.60-1.10); TOTAL CARBON DIOXIDE 24.2 MMOL/L (24-32); eCRCL 28 ML/MIN; eGFR 33 ML/MIN
[2024-12-23] MEDS: heparin, porcine 5000 units/ml vial SQ SCH (07:48)
[2024-12-23] MEDS: methylPREDNISolone sod succ/PF 40mg inj. IV SCH (08:10)
[2024-12-23] MEDS: insulin glargine (Lantus) pen - multi-dose SQ ONE (09:37)
--- NOTE | 2024-12-23 12:07 | PROGRESS NOTE ---
Progress Note Cardiology Providers to CC ~ Subjective Subjective Patient seen and examined this afternoon. Overall he is doing well. His shortness of breath is better. His BUN creatinine getting better after holding Lasix. However he needs Some moderate dose of diuretics before he goes home. Objective Result Diagram: 12/23/24 0543 12/23/24 0543 Objective General: Normal body habitus, no acute distress, HEENT: Sclerae clear, PERRL, gums without lesions or bleeding, oropharynx clear without erythema or exudate. Neck: Supple without enlargement of the thyroid, or lymphadenopathy, Chest: Normal size and shape, no tenderness, nonlabored breathing, Breath sounds diminished but improved Heart: Regular in rate and rhythm, S1 and S2 normal, no S3-S4 or murmurs. Abdomen: Soft, nontender, no organomegaly, bowel sounds present. Extremities: No edema cyanosis or clubbing. Coagulation Studies Laboratory Tests Test 12/19/24 10:08 12/21/24 15:50 Activated Partial Thromboplast Time 30 SECONDS (22-32) APTT (Heparin Protocol) 26 SECONDS (45-60) L Coagulation Comments Problem\Assessment\Plan Additional Plan 1. 84 years old male patient came to the hospital with Chronic systolic heart failure with reduced ejection fraction of 35% NYHA class 3/AHA Stage C Resume diuretics from this evening or tomorrow morning at moderate doses if okay with Dr. Valdez. Strict Is&Os. 1.5 L fluid restriction. Daily weight. Carvedilol 6.25 mg p.o. q.12h, lisinopril 2.5 mg p.o. daily, Jardiance 10 mg p.o. daily, Spirinolactone 25 mg p.o. daily. Diuretics per Dr. Valdez. 2. NSTEMI Nonobstructive coronary artery disease A: Troponin levels: [id number]. Since patient had coronary angiography last year declines any further workup. Declined any further testing this time. Wants continued medical therapy. 3., hypertension hyperlipidemia counseled on coronary risk factor modification. 4. Other comorbidities: Prior history of chronic smoking, continues to smoke, COPD Current history of smoking CKD stage IIIB: monitor CMP. HTN on lisinopril 5 mg daily. Sick sinus syndrome s/p ppm in 2021: On telemtry PAD status post bilateral lower extremity stenting Carotid artery stenosis s/p right endarterectomy: Currently on aspirin and Plavix. History of syncope, TIA: Currently on aspirin and Plavix Diabetes mellitus type 2 : A1c: 6.6 . SHAILESH GILL MD Dec 23, 2024 12:07
--- NOTE | 2024-12-23 14:42 | PROGRESS NOTE- Residence ---
Progress Note - Resident Providers to CC Resident Creating Document: DAISY GRIFFITHS RES CC: STAR CHAVEZ MD ~ Antibiotic Timeout Antibiotic Ordered?: No Subjective Patient seen and examined today. Patient does not have any complaints, no acute overnight events. Telemetry does not show repeat runs of V-tach or abnormal rhythms. Patient was educated about using incentive spirometry at regular intervals. Objective Vital Signs Date Time Temp Pulse Resp B/P (MAP) Pulse Ox O2 Delivery O2 Flow Rate FiO2 12/23/24 09:48 70 12/23/24 08:06 16 Room Air 0.0 12/23/24 08:01 98 21 12/23/24 02:00 97.4 140/66 (90) Result Diagram: 12/23/24 0543 12/23/24 0543 General: Alert, awake, oriented, not in acute distress HEENT: PERRLA, no icterus, pallor, lymphadenopathy, carotid bruit, pacemaker present in the left infraclavicular region, dilated veins, bilateral carotid bruit with right more than the left present Respiratory system: Bilateral vesicular breath sounds heard, diffuse wheeze present on inhalation in bilateral lung regions (improving), mild basal Creps present (resolved) CVS: S1-S2 heard, grade 3/6 holosystolic murmur present in the mitral area, grade 3/6 ejection systolic murmur present in the aortic area GI: Soft, nontender, no organomegaly, no guarding/rigidity, bowel sounds present Neuro: No focal neurological deficits present Extremities: No edema cyanosis clubbing Musculoskeletal: No deformities Skin: Warm and dry Coagulation Studies Laboratory Tests Test 12/19/24 10:08 12/21/24 15:50 Activated Partial Thromboplast Time 30 SECONDS (22-32) APTT (Heparin Protocol) 26 SECONDS (45-60) L Coagulation Comments Assessment Assessment An 84-year-old male with multiple medical comorbidities presented to the ED in view of worsening gradual shortness of breaths associated with chest discomfort, PND and orthopnea. Patient has up trending elevated troponins. Patient is admitted for the evaluation and management of acute hypoxemic respiratory failure secondary to COPD and heart failure exacerbation and NSTEMI. Plan Plan Acute hypoxemic respiratory failure 2/2 acute COPD exacerbation Acute exacerbation of heart failure with reduced ejection fraction Completed five day course of ceftriaxone and three day course of azithromycin Continue IV Solu-Medrol 40 mg b.i.d. Will taper steroids tomorrow Cardiology recommended: * Downtrended Dobutamine drip-3 mcg/kg/minute. ProBNP significantly reduced compared to day one. Chest x-ray showed improved vascular congestion * No Lasix in view of kidney function, can start Lasix either tonight or tomorrow based on Nephrology recommendations Strict Is&Os, increase fluid restriction to 2 L from 1.5 L. nurse severe GDM T: Carvedilol 3.125 mg p.o. q.12h, held ACEI/arbs and Jardiance in view of ongoing TRISTIAN. Spironolactone 25 mg p.o. daily. Patient is not agreeable to higher doses of carvedilol. Incentive spirometry and flutter valve Continue Pulmicort 0.5 mg p.o. b.i.d. and DuoNeb q.4h PRN Strongly recommended to quit tobacco 2 L fluid restriction NSTEMI Nonobstructive coronary artery disease Nonsustained V-tach Previous catheterization report in 2023: Left main: 20%, left subclavian: 50- 60%, lad: 30%, diagonal 1: 40 %, circumferential with mild irregularities, RCA with 30-40% narrowing Patient refused cardiac catheterization at this time and would like to proceed with medical therapy Completed 48 hours of heparin drip Continue aspirin 81 mg and Plavix 75 mg LDL goal: Less than 55, LDL: 73, continue atorvastatin 80 mg once daily and ezetimibe 10 mg p.o. 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 Sick sinus syndrome s/p ppm in 2021 h/o SVT with bradycardia Eight beats of nonsustained V-tach Continue Coreg 3.125 mg p.o. b.i.d.. . Patient adamantly refusing a value dose of Coreg Maintain potassium more than four and magnesium more than two PAD status post bilateral lower extremity stenting Carotid artery stenosis s/p right endarterectomy about 5-6 years back History of syncope, TIA Continue aspirin 81 mg p.o. daily and Plavix 75 mg p.o. daily as per Cardiology recommendations Diabetes mellitus type 2 A1c: 6.6 Low-dose sliding scale insulin, Lantus 10 units subcutaneous HS HLD LDL: 73 Continue atorvastatin 80 mg and ezetimibe 10 mg p.o. daily Tobacco abuse Strongly recommended to quit tobacco Code status: Full code Diet: Heart healthy DVT prophylaxis: Heparin 5000 units subcutaneous daily Disposition: Continue to monitor BMP. Awaiting Nephrology recommendations. Hold Lasix. Recommend BMP 2-5 weeks after discharge. Discharge on inhalers. Taper and discontinue dobutamine tomorrow. Consider discharge in a.m., Strongly recommend to quit tobacco abuse Daisy Griffiths MD Internal Medicine, PGY 2 Date of Service: Dec 23, 2024 Billing Provider: STAR CHAVEZ MD, SIVA, RES Dec 23, 2024 14:42
--- NOTE | 2024-12-23 15:13 | PROGRESS NOTE ---
Progress Note Dictate Providers to CC ~ Central Line/PICC still needed: No Morales Indications Met/Not Met: F/C Indications Not Met Antibiotic Ordered?: N/A Subjective Subjective urine output is picking up. creatinine came down to 1.9 today. very ambitious, wants to have a 'pill' equivalent to dobutamine to take at home, and is visibly surprised why we have not invented the pill equivalent of that yet. :-) Objective Vitals Vital Signs Date Time Temp Pulse Resp B/P (MAP) Pulse Ox O2 Delivery O2 Flow Rate FiO2 12/23/24 09:48 70 12/23/24 08:06 16 Room Air 0.0 12/23/24 08:01 98 21 12/23/24 02:00 97.4 140/66 (90) Lab Results: 12/23/24 0543 12/23/24 0543 Objective Vital Signs: As above General: Normal body habitus, no acute distress. Skin: No rashes, lumps, ulcers, blisters, purpura or petechiae HEENT: Anicteric sclera, ASTRID Neck: Supple and nontender without enlargement of the thyroid, or lymphadenopathy. Chest: Normal size and shape, no tenderness, CTA bilaterally Heart: Regular. No jugular venous distention, S1 and S2 heard , no gallop Abdomen: Soft and non tender no organomegaly,BS+ Extremities: No pedal edema Neuro: Nonfocal. Coagulation Studies Laboratory Tests Test 12/19/24 10:08 12/21/24 15:50 Activated Partial Thromboplast Time 30 SECONDS (22-32) APTT (Heparin Protocol) 26 SECONDS (45-60) L Coagulation Comments Advance Care Planning Advanced Care plannin - 30 Minutes Problem\Assessment\Plan Problems/Diagnosis: (1) Acute kidney injury superimposed on stage 3b chronic kidney disease Assessment & Plan: Most consistent with pre-renal cardiorenal physiology, getting better with dobutamine. urine output is picking up. creatinine is coming down. (2) NSTEMI (non-ST elevated myocardial infarction) Assessment & Plan: Patient opted for medical management, stopped heparin today, now BB, Plavix, Statin (3) Acute on chronic systolic heart failure Assessment & Plan: Would recommend guideline directed therapy when renal function improves, CAS LUCIANO MD Dec 23, 2024 15:13
[2024-12-23] MEDS: ipratropium/albuterol 3ml nebule NEB PRN (20:40)
[2024-12-24] VITALS (11 sets, daily range): BP systolic 134–161; BP diastolic 53–91; PULSE 60–75; RESP 15–21; TEMP 97.6–97.9; O2SAT 96–98
[2024-12-24 06:28] LABS: MEAN PLATELET VOLUME 10.1 FL (7.4-10.4); RED CELL DISTRIBUTION WIDTH 14.4 % (11.5-14.5)
[2024-12-24 06:36] LABS: CREATININE 1.76 MG/DL (0.60-1.10); TOTAL CARBON DIOXIDE 24.7 MMOL/L (24-32); eCRCL 32 ML/MIN; eGFR 37 ML/MIN
[2024-12-24] MEDS ORDERED: NICO-731 TOP (11:18)
[2024-12-24] MEDS ORDERED: FURO-150 PO (11:18)
[2024-12-24] MEDS ORDERED: PRED10TA23 PO (11:18)
[2024-12-24] MEDS ORDERED: SPIR25TA PO (11:18)
[2024-12-24] MEDS ORDERED: ALBU8HFA PO (11:18)
[2024-12-24] MEDS ORDERED: CLOP75TA34 PO (11:18)
[2024-12-24] MEDS ORDERED: BUDE0.253 NEB (11:18)
--- NOTE | 2024-12-24 16:12 | PROGRESS NOTE ---
Progress Note Cardiology Providers to CC ~ Subjective Subjective Patient seen and examined this morning before discharge. Overall he is doing well. Patient wants to go home. No chest pain or shortness of breath with ambulation Objective Result Diagram: 12/24/2460312/24/24603 Objective General: Normal body habitus, no acute distress, HEENT: Sclerae clear, PERRL, gums without lesions or bleeding, oropharynx clear without erythema or exudate. Neck: Supple without enlargement of the thyroid, or lymphadenopathy, Chest: Normal size and shape, no tenderness, nonlabored breathing, Breath sounds clear to auscultation. Heart: Regular in rate and rhythm, S1 and S2 normal, no S3-S4 or murmurs. Abdomen: Soft, nontender, no organomegaly, bowel sounds present. Extremities: No edema cyanosis or clubbing. Coagulation Studies Laboratory Tests Test 12/19/24 10:08 12/21/24 15:50 Activated Partial Thromboplast Time 30 SECONDS (22-32) APTT (Heparin Protocol) 26 SECONDS (45-60) L Coagulation Comments Problem\Assessment\Plan Additional Plan 1. 84 years old male patient came to the hospital with Chronic systolic heart failure with reduced ejection fraction of 35% NYHA class 3/AHA Stage C Resume diuretics from this evening or tomorrow morning at moderate doses if okay with Dr. Valdez. Anand Is&Os. Patient educated about CHF. Patient going home on spironolactone alone. Patient educated about hyperkalemia and need for additional Lasix if he starts retaining fluid. Patient to follow up with PMD Dr. Jaxon Cruz and motor block mechanic. 2. NSTEMI Nonobstructive coronary artery disease A: Troponin levels: [id number]. Since patient had coronary angiography last year declines any further workup. Declined any further testing this time. Wants continued medical therapy. 3., hypertension hyperlipidemia counseled on coronary risk factor modification. 4. Other comorbidities: Prior history of chronic smoking, continues to smoke, COPD Current history of smoking CKD stage IIIB: monitor CMP. HTN on lisinopril 5 mg daily. Sick sinus syndrome s/p ppm in 2021: On telemtry PAD status post bilateral lower extremity stenting Carotid artery stenosis s/p right endarterectomy: Currently on aspirin and Plavix. History of syncope, TIA: Currently on aspirin and Plavix Diabetes mellitus type 2 : A1c: 6.6 . CKD with a BUN of 58 and creatinine of 1.76 on 12/24/2024 SHAILESH GILL MD Dec 24, 2024 16:12
--- NOTE | 2024-12-24 19:16 | DISCHARGE SUMMARY-Residence ---
Discharge Summary Providers to CC Resident Creating Document: JEMMA MOISE, RES ~ Discharge Summary Admission Diagnosis: CHF EXACERBATION Hospital Course DATE OF ADMISSION: 12/19/2024 DATE OF DISCHARGE: 12/24/2024 Discharge Diagnosis\Comment: Acute hypoxemic respiratory failure acute COPD exacerbation Acute exacerbation of heart failure with reduced ejection fraction NSTEMI CKD stage IIIB Hypertension Sick sinus syndrome Peripheral artery disease Diabetes mellitus type 2 Hyperlipidemia Operations\Procedures: none Consultants: Cardiology - Nephrology - Complications: none Condition on DC: Stable New Medications: albuterol inhaler (Pro-Air Inhaler) 8.5 Gm Inhaler 1-2 PUFFS PO Q2H PRN for shortness of breath, #1 INH Budesonide (Pulmicort) 0.25 Mg/2 Ml Ampul.neb 1 VIAL NEB Q12H for 30 Days, #120 ML 0 Refills Nicotine (Nicotine Patch) 14 Mg Patch.td24 1 PATCH TOP DAILY for smoking cessation for 7 Days, #7 PATCH 0 Refills Prednisone (Prednisone) 10 Mg Tablet 0 PO DAILY, #42 TAB Take 4 tabs daily x4 days, then 3 daily x4 days 2 daily x4 days 1 daily x4 days 1/2 daily x4 days then STOP Clopidogrel Bisulfate (Clopidogrel) 75 Mg Tablet 75 MG PO DAILY, #30 TAB Do not stop medication unless instructed by prescriber. Spironolactone (Aldactone) 25 Mg Tablet 25 MG PO DAILY@0830, #30 TAB Changed Medications: Furosemide* (Lasix*) 20 Mg Tablet 2 TAB PO DAILY PRN for EDEMA, #60 TAB (Changed from: BID) Continued Medications: Aspirin (Aspirin) 81 Mg Tab.chew 1 TAB PO DAILY for 30 Days, #30 TAB Carvedilol (Carvedilol) 3.125 Mg Tablet 2 TAB PO Q12H for 30 Days, #60 TAB 0 Refills Cholecalciferol (Vitamin D) 1,000 Unit Tablet 3 TAB PO BID Cyanocobalamin* (Vitamin B-12*) 500 Mcg Tablet 1000 MG PO DAILY for 30 Days, #30 TAB Empagliflozin (Jardiance) 10 Mg Tablet 1 TAB PO DAILY for 30 Days, #30 TAB 0 Refills Ezetimibe (Ezetimibe) 10 Mg Tablet 1 TAB PO DAILY Pantoprazole Sodium (Pantoprazole Sodium) 40 Mg Tablet.dr 40 MG PO BID, TAB.SR Rosuvastatin Calcium (Rosuvastatin Calcium) 40 Mg Tablet 1 TAB PO DAILY Tamsulosin Hcl* (Flomax*) 0.4 Mg Cap.sr.24h 1 CAP PO DAILY for 30 Days, #30 CAP Tobramycin Sulfate 0.3% Opth.* (Tobrex 0.3% Opth.*) 5 Ml Bottle 1 DROP EACHEYE TID, EACH Discontinued Medications: Lisinopril (Lisinopril) 2.5 Mg Tablet 1 TAB PO DAILY for 30 Days, #30 TAB 0 Refills Discharge Summary: History of Present Illness An 84-year-old male with PMH of AFib s/p ppm, HTN, TIA, carotid endarterectomy presented to the ED in view of worsening shortness of breaths over a several days. Patient states that several days ago he was able to walk at least 50 ft without shortness of breaths until yesterday when he was short of breath even at rest. Patient denies use of oxygen at home. Patient endorses paroxysmal nocturnal dyspnea, orthopnea and mild pedal edema. Patient also endorses cough with phlegm which is white yellowish tinged, small in quantity. Patient also endorses chest discomfort, absolutely denies chest pain. Patient denies dizziness, palpitations. Hospital course : 84 years old male with a history of AFib, hypertension, TIA, carotid endarterectomy penicillins history of ED with worsening of shortness of breath. During the day of admission patient has trending elevated troponins, and patient was treated for acute hypoxemic respiratory failure secondary to COPD with a chest x-ray showing increased interstitial prominence and with the elevated proBNP and patient was started on 5 days course IV ceftriaxone and IV azithromycin and patient also received IV Solu-Medrol 125 mg in ED and 60 mg b.i.d. in PCU. Cardiology started dobutamine drip at 3 mixed per minute and increased to 5 mics per minute and IV Lasix 40 mg b.i.d. with a strict input and output, 1.5 L fluid restrict, and wood heel cementer also recommended catheterization but patient refused and opted for medical therapy and patient started on Carvedilol 6.25 mg p.o. q.12h, lisinopril 2.5 mg p.o. daily, Jardiance 10 mg p. o. daily, Spirinolactone 25 mg p.o. daily. And on day 3 held lisinopril 2.5 mg p.o. daily, Jardiance 10 mg p.o. daily, Aldactone 25 mg p.o. in view of worsening kidney function. On day 4 patient started on spironolactone, and patient not agreed to higher dose of carvedilol.2 L fluid restriction. And PT evaluate and recommend rehab but patient denied so we are discharging to home with barriers Vital Signs Date Time Temp Pulse Resp B/P (MAP) Pulse Ox O2 Delivery O2 Flow Rate FiO2 12/24/24 11:00 97.9 63 21 153/76 (101) 98 12/24/24 08:59 Room Air* 0 21 Laboratory Tests Test 12/22/24 19:42 12/22/24 21:45 12/23/24 05:43 12/23/24 07:28 Glucometer 255 mg/dl 240 mg/dl 197 mg/dl White Blood Count 14.4 X10'3 Red Blood Count 3.83 X10'6 Hemoglobin 12.4 g/dl Hematocrit 37.8 % Mean Corpuscular Volume 98.9 FL Mean Corpuscular Hemoglobin 32.3 PG Mean Corpuscular Hemoglobin Concent 32.6 g/dL Red Cell Distribution Width 14.3 % Platelet Count 162 X10'3 Mean Platelet Volume 10.6 FL Neutrophils (%) (Auto) 90.9 % Lymphocytes (%) (Auto) 2.2 % Monocytes (%) (Auto) 6.7 % Eosinophils (%) (Auto) 0 % Basophils (%) (Auto) 0.2 % Neutrophils # (Auto) 13.1 X10'3 Lymphocytes # (Auto) 0.3 X10'3 Monocytes # (Auto) 1.0 X10'3 Eosinophils # (Auto) 0.0 X10'3 Basophils # (Auto) 0.0 X10'3 CBC Comment Sodium Level 139 MMOL/L Potassium Level 4.4 MMOL/L Chloride Level 106 MMOL/L Carbon Dioxide Level 24.2 MMOL/L Anion Gap 9 Blood Urea Nitrogen 64 MG/DL Creatinine 1.97 MG/DL Estimated GFR/1.73 m2 33 ML/MIN BUN/Creatinine Ratio 32.5 Glucose Level 212 MG/DL Calcium Level 9.2 MG/DL Magnesium Level 2.5 MG/DL Albumin 2.9 G/DL Chemistry Comments Test 12/23/24 12:27 12/23/24 17:40 12/23/24 20:44 12/24/24 06:04 Glucometer 124 mg/dl 208 mg/dl 216 mg/dl White Blood Count 11.0 X10'3 Red Blood Count 3.83 X10'6 Hemoglobin 12.4 g/dl Hematocrit 37.5 % Mean Corpuscular Volume 97.9 FL Mean Corpuscular Hemoglobin 32.4 PG Mean Corpuscular Hemoglobin Concent 33.1 g/dL Red Cell Distribution Width 14.4 % Platelet Count 143 X10'3 Mean Platelet Volume 10.1 FL Neutrophils (%) (Auto) 91.9 % Lymphocytes (%) (Auto) 3.0 % Monocytes (%) (Auto) 4.9 % Eosinophils (%) (Auto) 0 % Basophils (%) (Auto) 0.2 % Neutrophils # (Auto) 10.1 X10'3 Lymphocytes # (Auto) 0.3 X10'3 Monocytes # (Auto) 0.5 X10'3 Eosinophils # (Auto) 0.0 X10'3 Basophils # (Auto) 0.0 X10'3 CBC Comment Sodium Level 141 MMOL/L Potassium Level 4.9 MMOL/L Chloride Level 108 MMOL/L Carbon Dioxide Level 24.7 MMOL/L Anion Gap 8 Blood Urea Nitrogen 58 MG/DL Creatinine 1.76 MG/DL Estimated GFR/1.73 m2 37 ML/MIN BUN/Creatinine Ratio 33.0 Glucose Level 209 MG/DL Calcium Level 9.0 MG/DL Albumin 2.7 G/DL Chemistry Comments Test 12/24/24 06:56 Glucometer 203 mg/dl Physical exam Vital Signs: As above General: Normal body habitus, no acute distress. Skin: No rashes, lumps, ulcers, blisters, purpura or petechiae HEENT: Anicteric sclera, ASTRID Neck: Supple and nontender without enlargement of the thyroid, or lymphadenopathy. Chest: Normal size and shape, no tenderness, CTA bilaterally Heart: Regular. No jugular venous distention, S1 and S2 heard , no gallop Abdomen: Soft and non tender no organomegaly,BS+ Extremities: No pedal edema Neuro: Nonfocal. Imaging Chest [id number] interstital prominence. This may represent pulmonary vascular congestion and/or viral pneumonia. Clinical correlation advised. Echocardiogram-There is [id number] LV systolic dysfunction present. Overall estimated LV ejection fraction is about 35-40% LV is mildly dilated with mild concentric hypertrophy. Overall systolic function appears to be moderate to severely reduced with multi segmental wall motion abnormalities noted more so in the inferolateral wall. RV appears mildly dilated with normal contractility. RVSP is estimated at 68 mmHG. Trileaflet AV appears sclerotic without stenosis. Trace insufficiency. Moderate mitral regurgitation. Moderate tricuspid regurgitation. Trace to mild pulmonic regurgitation. There is no pericardial effusion. Chest x-ray: Resolved pulmonary vascular congestion. Right basilar opacity, favor atelectasis. Discharge recommendation: Follow up with your primary care provider at [facility] within a week. Repeat BMP prior to your visit to PCP. Follow up with Dr. Parra or wood heel cementer and your chainstitch hemmer at [facility]. Use breathing treatments p.r.n.. Taper steroids as prescribed and then stop. Continue aspirin, Crestor, Zetia and Plavix as prescribed. You have kidney disease and hence it is recommended that you use Lasix p.r.n. after checking daily weights, use only if you developing edema or gaining weight. Change Lasix from 40 b.i.d. to 40 daily prn. Because of your kidney issue unable to start complete GDM T for your heart failure with reduced EF, stopped lisinopril 2.5 p.o. daily. Continue beta kristyn Coreg 6.125 p.o. b.i.d., Jardiance 10 p.o. daily, Aldactone 25 p.o. daily. GDM T to be taken as tolerated per your creatinine and kidney function, discussed with your wood heel cementer and chainstitch hemmer regarding the kidney issue. Recommended to drink at least 1.5-2 L of fluid every day. Check daily weights. Use nicotine patch advised strict abstinence from smoking. Recommended to use incentive spirometer q.1h. Also use the flutter valve. Use Pulmicort 0.5 b.i.d. and albuterol as a rescue inhaler. Your A1c is 6.6 continue Jardiance that we will help with your sugars. Repeat BMP within a week. If condition worsens call 911 or go to the nearest ER immediately. *Problems/Diagnosis: (1) Acute kidney injury superimposed on stage 3b chronic kidney disease Status: Chronic (2) NSTEMI (non-ST elevated myocardial infarction) Status: Acute (3) Acute on chronic systolic heart failure Status: Chronic Total Time Spent on D/C: > 30 Minutes Date of Service: Dec 24, 2024 Billing Provider: STAR CHAVEZ MD, SATISH, RES Dec 24, 2024 18:25
== END 2024-12-24 13:35 | disposition home or self-care (01) | DRG 280 ==
LOC: ER 09:47 → ED HOLD 11:35 → PCU 3S 14:02
PROVIDERS: ADMIT Family Medicine; ATTEND Family Medicine
DX: I13.0 Hypertensive heart and chronic kidney disease with heart failure and stage 1 through stage 4 chronic kidney disease, or unspecified chronic kidney disease (principal); I50.23 Acute on chronic systolic (congestive) heart failure; I21.4 Non-ST elevation (NSTEMI) myocardial infarction; N17.0 Acute kidney failure with tubular necrosis; J96.01 Acute respiratory failure with hypoxia; J44.1 Chronic obstructive pulmonary disease with (acute) exacerbation; Z20.822 Contact with and (suspected) exposure to COVID-19; N18.32 Chronic kidney disease, stage 3b; I25.10 Atherosclerotic heart disease of native coronary artery without angina pectoris; I49.5 Sick sinus syndrome; E11.51 Type 2 diabetes mellitus with diabetic peripheral angiopathy without gangrene; E11.22 Type 2 diabetes mellitus with diabetic chronic kidney disease; E78.00 Pure hypercholesterolemia, unspecified; F03.90 Unspecified dementia, unspecified severity, without behavioral disturbance, psychotic disturbance, mood disturbance, and anxiety; F32.A Depression, unspecified; M54.9 Dorsalgia, unspecified; G47.30 Sleep apnea, unspecified; Z87.891 Personal history of nicotine dependence; Z79.899 Other long term (current) drug therapy; Z86.73 Personal history of transient ischemic attack (TIA), and cerebral infarction without residual deficits; Z82.49 Family history of ischemic heart disease and other diseases of the circulatory system; Z82.5 Family history of asthma and other chronic lower respiratory diseases
CPT/HCPCS: 36415; 71045; 80048; 80061; 81001; 82565; 82948; 83036; 83605; 83735; 83880; 84132; 84484; 85025; 85730; 87040; 87081; 87811; 93005; 93306; 94640; 94760; 96365; 99285; A7015; G0378; J0456; J0696; J1250; J1644; J1815; J1938; J2919; J7040